=== PATIENT | female | born 1965 | race African-American/Black ===

== ENCOUNTER 2016-12-31 17:24 | Inpatient (IN) | payer BC ==
--- NOTE | 2016-12-31 18:01 | PDOC ---
Rapid Medical Evaluation Time Seen by Provider: 12/31/16 17:27 Medical Evaluation: Allergies Allergy/AdvReac Type Severity Reaction Status Date / Time No Known Drug Allergies Allergy Verified 08/22/15 12:26 12/31/16 17:57 PMD: Brille/Ring Spinner 51yo F Pmhx of Sarcoid and copd c/o coughing with sob. Pt states after a course of steroids, the coughing would subside but this time it got worse. Currently on Prednisone 20mg. Was on a higher dose with the cough. Pt states she is here for admission.
[2016-12-31 18:04] VITALS: BMI 33.0
[2016-12-31 18:49] LABS: BASOPHIL 0.2 % (0-2.0); EOSINOPHIL 0.1 % (0-4.5); MCHC 32.9 g/dl (32.0-36.0); MEAN CELL VOLUME 88.1 fl (80-96); MEAN PLT VOLUME 8.5 fl (7.5-11.1); NEUTROPHILS 89.5 % (42.8-82.8); PLATELET COUNT 197 K/MM3 (134-434)
--- NOTE | 2016-12-31 19:53 | PDOC ---
History of Present Illness - General History Source: Patient Exam Limitations: No Limitations - History of Present Illness Initial Comments: 12/31/16 20:35 The patient is a 51 year old female with significant past medical history of hypertension, hyperlipidemia, sarcoidosis, COPD, and anemia who presents to the ED with 2 week of worsening cough with mild SOB. Patient reports last summer she was diagnosed with pneumonia that was accompanied by a cough where she was treated and got better. After [place], her cough returned that was sometimes dry or with phlegm. She reports her cough was intermittent until 2 weeks ago, her cough became persistent with mild SOB. Patient visited Dr. Brown 3 days ago where she was given prednisone 20 mg for concern of pneumonia. She took treatment with no improvement and was advised by Dr. Brown to come in for admission. The patient denies fever, chills, diaphoresis, lightheadedness, chest pain, and palpitations. The patient denies abdominal pain, nausea, vomiting, and diarrhea. Allergies: NKDA Social History: No alcohol, tobacco, or drug use reported. Past Surgical History: cholecystectomy, lung biopsy, knee arthroscopy PCP: Dr. Delmis Wang Pilot Instructor: Dr. Carlton Brown <Jeanne Sy - Last Filed: 12/31/16 22:09> - General History Source: Patient <Berny Crandall - Last Filed: 01/01/17 19:23> - General Chief Complaint: Respiratory Stated Complaint: PCP SENT/PNEUMONIA Time Seen by Provider: 12/31/16 17:27 Past History <Jeanne Sy - Last Filed: 12/31/16 22:09> - Past Medical History Anemia: Yes (H/O IRON DEF) Asthma: No Cancer: No Cardiac Disorders: No CVA: No COPD: Yes (SARCOIDOSIS) CHF: No Dementia: No Diabetes: No GI Disorders: No Disorders: No HTN: Yes Hypercholesterolemia: Yes Kidney Stones: Yes Liver Disease: No Seizures: No Thyroid Disease: No - Surgical History Abdominal Surgery: Yes Appendectomy: No Cardiac Surgery: No Cholecystectomy: Yes Lung Surgery: Yes (BIOPSY) Neurologic Surgery: No Orthopedic Surgery: Yes (KNEE ARTHROSCOPY) - Immunization History Immunization Up to Date: Yes - Psycho/Social/Smoking Cessation Hx Anxiety: No Suicidal Ideation: No Smoking Status: No Smoking History: Never smoked Have you smoked in the past 12 months: No Number of Cigarettes Smoked Daily: 0 Information on smoking cessation initiated: No Hx Alcohol Use: No Drug/Substance Use Hx: No Substance Use Type: None Hx Substance Use Treatment: No <Berny Crandall - Last Filed: 01/01/17 19:23> - Past Medical History Allergies/Adverse Reactions: Allergies Allergy/AdvReac Type Severity Reaction Status Date / Time No Known Drug Allergies Allergy Verified 12/31/16 18:01 Home Medications: Ambulatory Orders Olmesartan Medoxomil [Benicar -] 20 mg PO HS 05/03/13 Atorvastatin Ca [Lipitor] 20 mg PO HS 01/08/15 Cholecalciferol (Vitamin D3) [Vitamin D] 1,000 unit PO HS 08/20/15 Oxycodone HCl/Acetaminophen [Percocet 5/325 -] 1 - 2 tab PO Q4H #30 tablet 08/22 Advair 500Mcg/50Mcg - 1 inhaler IH BID 01/01/17 Mirapex 0.25 mg PO DAILY 01/01/17 Mirapex 0.5 mg PO HS 01/01/17 Prednisone 20 mg PO DAILY 01/01/17 Topiramate 50 mg PO BID 01/01/17 Review of Systems - Review of Systems Able to Perform ROS?: Yes Comments:: 12/31/16 20:35 CONSTITUTIONAL: Absent: fever, chills, diaphoresis, generalized weakness, malaise, loss of appetite HEENT: Absent: rhinorrhea, nasal congestion, throat pain, throat swelling, difficulty swallowing, mouth swelling, ear pain, eye pain, visual Changes CARDIOVASCULAR: Absent: chest pain, syncope, palpitations, irregular heart rate, lightheadedness , peripheral edema RESPIRATORY: +cough, shortness of breath Absent: dyspnea with exertion, orthopnea, wheezing, stridor, hemoptysis GASTROINTESTINAL: Absent: abdominal pain, abdominal distension, nausea, vomiting, diarrhea, constipation, melena, hematochezia GENITOURINARY: Absent: dysuria, frequency, urgency, hesitancy, hematuria, flank pain, genital pain MUSCULOSKELETAL: Absent: myalgia, arthralgia, joint swelling SKIN: Absent: rash, itching, pallor NEUROLOGIC: Absent: headache, focal weakness or paresthesias, dizziness, unsteady gait, seizure, mental status changes, bladder or bowel incontinence PSYCHIATRIC: Absent: anxiety, depression, suicidal or homicidal ideation, hallucinations. <Jeanne Sy - Last Filed: 12/31/16 22:09> *Physical Exam - Vital Signs Last Vital Signs Temp Pulse Resp BP Pulse Ox 98.4 F 106 H 18 160/83 98 12/31/16 17:56 12/31/16 17:56 12/31/16 17:56 12/31/16 17:56 12/31/16 17:56 - Physical Exam Comments: 12/31/16 20:35 GENERAL: Well developed, well nourished. Awake and alert. No acute distress. HEENT: Normocephalic, atraumatic. PERRLA, EOMI. No conjunctival pallor. Sclera are non- icteric. Moist mucous membranes. Oropharynx is clear. NECK: Supple. Full ROM. No JVD. Carotid pulses 2+ and symmetric, without bruits. No thyromegaly. No lymphadenopathy. CARDIOVASCULAR: Regular rate and rhythm. No murmurs, rubs, or gallops. Distal pulses are 2+ and symmetric. PULMONARY: Mild respiratory distress. Poor air exchange. Decreased breath sounds bilaterally. ABDOMINAL: Soft. Non-tender. Non-distended. No rebound or guarding. No organomegaly. Normoactive bowel sounds. MUSCULOSKELETAL Normal range of motion at all joints. No bony deformities or tenderness. No CVA tenderness. EXTREMITIES: No cyanosis. No clubbing. No edema. No calf tenderness. SKIN: Warm and dry. Normal capillary refill. No rashes. No jaundice. NEUROLOGICAL: Alert, awake, appropriate. Cranial nerves 2-12 intact. Moving all extremities. No gross focal neurological deficits. PSYCHIATRIC: Cooperative. Good eye contact. Appropriate mood and affect. <Jeanne Sy - Last Filed: 12/31/16 22:09> - Vital Signs Last Vital Signs Temp Pulse Resp BP Pulse Ox 98.4 F 106 H 18 160/83 98 12/31/16 17:56 12/31/16 17:56 12/31/16 17:56 12/31/16 17:56 12/31/16 17:56 <Berny Crandall - Last Filed: 01/01/17 19:23> Heart Score/ECG Review - ECG Impressions Comment:: 12/31/16 22:09 Sinus tachycardia @104bpm Possible left atrial enlargement RBBB Abnormal ECG <Jeanne Sy - Last Filed: 12/31/16 22:09> ED Treatment Course - LABORATORY CBC & Chemistry Diagram: 12/31/16 18:40 12/31/16 18:40 - ADDITIONAL ORDERS Additional order review: 12/31/16 18:40 RBC 4.76 MCV 88.1 MCHC 32.9 RDW 13.0 MPV 8.5 Neutrophils % 89.5 H D Lymphocytes % 6.2 L D Monocytes % 4.0 Eosinophils % 0.1 D Basophils % 0.2 <Jeanne Sy - Last Filed: 12/31/16 22:09> - LABORATORY CBC & Chemistry Diagram: 12/31/16 18:40 12/31/16 23:35 - ADDITIONAL ORDERS Additional order review: 12/31/16 18:40 RBC 4.76 MCV 88.1 MCHC 32.9 RDW 13.0 MPV 8.5 Neutrophils % 89.5 H D Lymphocytes % 6.2 L D Monocytes % 4.0 Eosinophils % 0.1 D Basophils % 0.2 <Berny Crandall - Last Filed: 01/01/17 19:23> Medical Decision Making - Medical Decision Making 01/01/17 19:23 Dr. Crandall: The scribe's documentation has been prepared under my direction and personally reviewed by me in its entirery. I confirm that the note above accurately reflects all work, treatment, procedures, and medical decision making performed by me. <Berny Crandall - Last Filed: 01/01/17 19:23> *DC/Admit/Observation/Transfer - Attestations Scribe Attestion: 12/31/16 20:36 Documentation prepared by Jeanne Sy, acting as medical cost consultant for Berny Crandall MD <Jeanne Sy - Last Filed: 12/31/16 22:09> - Discharge Dispostion Admit: Yes <Berny Crandall - Last Filed: 01/01/17 19:23> Diagnosis at time of Disposition: Shortness of breath, Cough, Sarcoidosis - Discharge Dispostion Condition at time of disposition: Stable - Referrals
[2016-12-31] MEDS ORDERED: MAGNESIUM SULF 50% (8.12 MEQ/2 ML-1 GM VIAL) IVPB ONE (20:11)
[2016-12-31] MEDS ORDERED: ALBUTEROL SO4 2.5/IPRATROPIUM 0.5 INH SOL 3 ML VIAL.NEB. NEB STA (20:11)
[2016-12-31] MEDS ORDERED: methylPREDNISolone NA SUCC 125 MG/2 ML VIAL IVPB ONE (20:13)
[2016-12-31] MEDS ORDERED: MAGNESIUM SULF 50% (8.12 MEQ/2 ML-1 GM VIAL) ONE (20:44)
[2016-12-31] MEDS ORDERED: ALBUTEROL SO4 2.5/IPRATROPIUM 0.5 INH SOL 3 ML VIAL.NEB. NEB ONE (20:44)
[2016-12-31] MEDS ORDERED: methylPREDNISolone NA SUCC 125 MG/2 ML VIAL ONE (20:44)
[2017-01-01 00:46] LABS: ALBUMIN 3.8 g/dl (3.4-5.0); CALCIUM 9.1 mg/dL (8.5-10.1); CREATININE 1.7 mg/dL (0.55-1.02)
[2017-01-01 00:48] LABS: BILIRUBIN,TOTAL 0.3 mg/dL (0.2-1.0); TOT PROT 7.2 g/dl (6.4-8.2)
[2017-01-01] MEDS ORDERED: LEVOFLOXACIN 750 MG IVPB 150 ML IVPB ONE ×2 (00:57→01:30)
[2017-01-01] MEDS ORDERED: ALBUTEROL SO4 2.5/IPRATROPIUM 0.5 INH SOL 3 ML VIAL.NEB. NEB PRN (04:28)
--- NOTE | 2017-01-01 04:47 | PN ---
<Catherine Ramirez - Last Filed: 01/01/17 05:03> Teaching Attending Note ATTENDING PHYSICIAN STATEMENT I saw and evaluated the patient. I reviewed the resident's note and discussed the case with the resident. I agree with the resident's findings and plan as documented. SUBJECTIVE: The patient is a 51 year old female with significant past medical history of hypertension, hyperlipidemia, sarcoidosis, COPD, and anemia who presents with persistent cough. Cough worsened over summer. Patient was treated with antibiotics with some improvement. Symptoms resolved with steroids, however, upon tapering cough as reoccurred. She has been unable to wean steroids under 10mg for the last 5 months. Patient was told by her primary coffee supervisor to report to the hospital for further evaluation. Patient was diagnosed with sarcoidosis 20 years ago. Patient also notes SOB recently. Patient denies fevers , mucous, severe SOB, chest pain, palpitations, and abdominal pain. Surgical Hx: cholecystectomy, rotator cuff surgery, caesarian, plantar fasciitis , knee arthroscopy, ablation of uterine lining, Allergies: NKDA Family Hx: HTN, HLD, IDDM, [place] OBJECTIVE: Last Vital Signs Temp Pulse Resp BP Pulse Ox 98.4 F 83 18 159/72 98 01/01/17 02:56 01/01/17 02:56 01/01/17 02:56 01/01/17 02:56 01/01/17 02:56 GENERAL: Obese, Awake, alert, and fully oriented, in no acute distress HEENT: Atraumatic. PERRLA, EOMI. Moist mucosa. No JVD LUNGS: No distress, speaks full sentences, clear to auscultation bilaterally HEART: Regular rate and rhythm, normal S1 and S2, no murmurs, rubs or gallops, peripheral pulses normal and equal bilaterally. ABDOMEN: Soft, nontender, normoactive bowel sounds. No guarding, no rebound. No masses EXTREMITIES: Right heel bandaged, Normal range of motion, no edema. No clubbing or cyanosis. CBCD WBC 7.0 K/mm3 (4.0-10.0) D 12/31/16 18:40 RBC 4.76 M/mm3 (3.60-5.2) 12/31/16 18:40 Hgb 13.8 GM/dL (10.7-15.3) 12/31/16 18:40 Hct 42.0 % (32.4-45.2) 12/31/16 18:40 MCV 88.1 fl (80-96) 12/31/16 18:40 MCHC 32.9 g/dl (32.0-36.0) 12/31/16 18:40 RDW 13.0 % (11.6-15.6) 12/31/16 18:40 Plt Count 197 K/MM3 (134-434) 12/31/16 18:40 MPV 8.5 fl (7.5-11.1) 12/31/16 18:40 CMP Sodium 142 mmol/L (136-145) 12/31/16 23:35 Potassium 3.7 mmol/L (3.5-5.1) 12/31/16 23:35 Chloride 110 mmol/L (98-107) H 12/31/16 23:35 Carbon Dioxide 21 mmol/L (21-32) 12/31/16 23:35 Anion Gap 11 (8-16) 12/31/16 23:35 BUN 29 mg/dL (7-18) H D 12/31/16 23:35 Creatinine 1.7 mg/dL (0.55-1.02) H D 12/31/16 23:35 Creat Clearance w eGFR 31.56 (>60) 12/31/16 23:35 Calcium 9.1 mg/dL (8.5-10.1) 12/31/16 23:35 Total Bilirubin 0.3 mg/dL (0.2-1.0) 12/31/16 23:35 AST 11 U/L (15-37) L D 12/31/16 23:35 ALT 26 U/L (12-78) D 12/31/16 23:35 Alkaline Phosphatase 99 U/L (45-117) D 12/31/16 23:35 Total Protein 7.2 g/dl (6.4-8.2) 12/31/16 23:35 Albumin 3.8 g/dl (3.4-5.0) 12/31/16 23:[address] No definite interval change ASSESSMENT AND PLAN: The patient is a 51 year old female with significant past medical history of hypertension, hyperlipidemia, sarcoidosis, COPD, and anemia who presents PMHx of sarcoidosis presents with persistent cough failing when weaning with steroids found to have possible pneumonia on CT scan. She is in the midst of Levaquin course which we will continue. She will be seen by her primary coffee supervisor for further evaluation. Possible pneumonia -Continue prednisone -Continue levaquin -Continue home meds Sarcoidosis - further evaluation under coffee supervisor DVT ppx - heparin sc Documentation prepared by Catherine Ramirez, acting as medical transport specialist for Ulices Merritt M.D. <Ulices Merritt - Last Filed: 01/01/17 05:07> Teaching Attending Note Name of Resident: Nader Sorensen ATTENDING PHYSICIAN STATEMENT I saw and evaluated the patient. I reviewed the resident's note and discussed the case with the resident. I agree with the resident's findings and plan as documented.
--- NOTE | 2017-01-01 05:03 | HP ---
CHIEF COMPLAINT: chronic cough HISTORY OF PRESENT ILLNESS: The patient is a 51 year old female with significant past medical history of hypertension, hyperlipidemia, sarcoidosis, and anemia who presents with persistent cough from two years. IN summer on 2015 patient was treated with antibiotics after which cough resolved. In october patient again started having cough and two week ago patient noticed increase in cough and stated producing white color phlem. 3 days ago patient was started on l levaquin but cough didnt improve so she came to ED. Patient also states that when she cough she feels sob and it has also increased since before. Patient was diagnosed with sarcoidosis 20 years ago and is on steroid. Denies lightheadidness, diziness, chest pain, palpitations, nausea, vomiting ( some time have vomiting due to reaching during cough) denies burning micturation, pain abdomen. ER course was notable for: (1)cbc, cmp, (2) ct head Recent Travel: no PAST MEDICAL HISTORY: hypertension, hyperlipidemia, sarcoidosis, COPD, and anemia PAST SURGICAL HISTORY: cholecystectomy, rotator cuff surgery, caesarian, plantar fasciitis, knee arthroscopy, ablation of uterine lining, Social History: Smoking: no Alcohol: no Drugs: no Family History: HTN, HLD, IDDM, [place] Allergies No Known Drug Allergies Allergy (Verified 12/31/16 18:01) HOME MEDICATIONS: Home Medications Medication Instructions Recorded Olmesartan Medoxomil [Benicar -] 20 mg PO HS 05/03/13 Atorvastatin Ca [Lipitor] 20 mg PO HS 01/08/15 Cholecalciferol (Vitamin D3) 1,000 unit PO HS 08/20/15 [Vitamin D] Oxycodone HCl/Acetaminophen 1 - 2 tab PO Q4H #30 tablet 08/22/15 [Percocet 5/325 -] REVIEW OF SYSTEMS CONSTITUTIONAL: Absent: fever, chills, diaphoresis, generalized weakness, malaise, loss of appetite, weight change HEENT: present chronic cough Absent: rhinorrhea, nasal congestion, throat pain, throat swelling, difficulty swallowing, mouth swelling, ear pain, eye pain, visual changes CARDIOVASCULAR: Absent: chest pain, syncope, palpitations, irregular heart rate, lightheadedness , peripheral edema RESPIRATORY: Absent: chronic cough, shortness of breath, dyspnea with exertion, orthopnea, wheezing, stridor, hemoptysis GASTROINTESTINAL: Absent: abdominal pain, abdominal distension, nausea, vomiting, diarrhea, constipation, melena, hematochezia GENITOURINARY: Absent: dysuria, frequency, urgency, hesitancy, hematuria, flank pain, genital pain MUSCULOSKELETAL: Absent: myalgia, arthralgia, joint swelling, back pain, neck pain SKIN: Absent: rash, itching, pallor HEMATOLOGIC/IMMUNOLOGIC: Absent: easy bleeding, easy bruising, lymphadenopathy, frequent infections ENDOCRINE: Absent: unexplained weight gain, unexplained weight loss, heat intolerance, cold intolerance NEUROLOGIC: Absent: headache, focal weakness or paresthesias, dizziness, unsteady gait, seizure, mental status changes, bladder or bowel incontinence PSYCHIATRIC: Absent: anxiety, depression, suicidal or homicidal ideation, hallucinations. PHYSICAL EXAMINATION Vital Signs - 24 hr 01/01/17 02:56 Temperature 98.4 F Pulse Rate 83 Respiratory 18 Rate Blood Pressure 159/72 O2 Sat by Pulse 98 Oximetry (%) GENERAL: Awake, alert, and fully oriented, in no acute distress. HEAD: Normal with no signs of trauma. EYES: Pupils equal, round and reactive to light, extraocular movements intact, sclera anicteric, conjunctiva clear. No lid lag. EARS, NOSE, THROAT: Ears normal, nares patent, oropharynx clear without exudates. Moist mucous membranes. NECK: Normal range of motion, supple without lymphadenopathy, JVD, or masses. LUNGS: Breath sounds equal, clear to auscultation bilaterally. No wheezes, and no crackles. No accessory muscle use. HEART: s1s2 normal ABDOMEN: Soft, nontender, not distended, normoactive bowel sounds, no guarding, no rebound, no masses. No hepatomegaly or splenomegaly. MUSCULOSKELETAL: Normal range of motion at all joints. No bony deformities or tenderness. No CVA tenderness. UPPER EXTREMITIES: 2+ pulses, warm, well-perfused. No cyanosis. No clubbing. Cap refill <2 seconds. No peripheral edema. LOWER EXTREMITIES: 2+ pulses, warm, well-perfused. No calf tenderness. No peripheral edema. NEUROLOGICAL: Cranial nerves II-XII intact. Normal speech. Normal gait. PSYCHIATRIC: Cooperative. Good eye contact. Appropriate mood and affect. SKIN: Warm, dry, normal turgor, no rashes or lesions noted. Laboratory Results - last 24 hr 12/31/16 23:35 Sodium 142 Potassium 3.7 Chloride 110 H Carbon Dioxide 21 Anion Gap 11 BUN 29 H D Creatinine 1.7 H D Creat Clearance w eGFR 31.56 Random Glucose 306 H* D Calcium 9.1 Total Bilirubin 0.3 AST 11 L D ALT 26 D Alkaline Phosphatase 99 D Total Protein 7.2 Albumin 3.8 Current Medications Generic Name Dose Route Start Last Admin Trade Name Freq PRN Reason Stop Dose Admin Albuterol/Ipratropium 1 amp 01/01/17 04:28 Duoneb - NEB Q6H PRN SHORTNESS OF BREATH Atorvastatin Calcium 20 mg 01/01/17 22:00 Lipitor - PO HS HIRAM Cholecalciferol 1,000 unit 01/01/17 22:00 Vitamin D3 - PO HS HIRAM Heparin Sodium (Porcine) 5,000 unit 01/01/17 10:00 Heparin - SQ BID HIRAM Non-Formulary Medication 20 mg 01/01/17 22:00 Olmesartan Medoxomil PO HS HIRAM Prednisone 20 mg 01/01/17 10:00 Deltasone - PO DAILY HIRAM ASSESSMENT/PLAN: The patient is a 51 year old female with significant past medical history of hypertension, hyperlipidemia, sarcoidosis, COPD, and anemia who presents with chronic cough and on CT found to have opacity in anterior segment of left upper lobe. Possible pneumonia recived levaquin in ed continue with levaquin continue with prednisone neb with duoneb q6h prn continue with advir sarcoidosis finishing range feeder evaluation continue with prednisone HTN continue with home meds high blood sugar co HLD on atorvastatin 20mg daily fluid : orally allowed electrolyte : follow in am nutrition ; diabetic diet dvt pro : heparin s/q bid gi pro ; not required dispo ; admit in med surg Visit type - Emergency Visit Emergency Visit: Yes ED Registration Date: 12/31/16 Care time: The patient presented to the Emergency Department on the above date and was hospitalized for further evaluation of their emergent condition. - New Patient This patient is new to me today: Yes Date on this admission: 01/01/17 - Critical Care Critical Care patient: No
--- NOTE | 2017-01-01 05:14 | MSN ---
Admitting History and Physical - Admission Chief Complaint: cough History of Present Illness: 51 yo female with pmhx of htn, hld, and sarcoidosis presents with non productive cough for three days. She saw Dr. Brown 3 days ago and was started on levoquin for pneumonia. She says she does not feel any better so she came to the hospital. She has sarcoidosis diagnosed 20 years ago and has been experiencing a cough for the last two years that seems to come and go. She says that she thought it was just allergies at first and was tested but the results were negative. She has been on steriods for many years but every time she gets below 15mg for a taper the cough seems to return. She denies fever, chills, sweating, chest pain, palpitations, abdominal pain, headache, dizziness. History Source: Patient Limitations to Obtaining History: No Limitations - Past Medical History Cardiovascular: Yes: HTN, Hyperlipdemia Pulmonary: Yes: Other (sarcoidosis) ...LMP: 02/01/12 - Past Surgical History Past Surgical History: Yes: Arthrosocopy, Cholecystectomy, Additional Past Surgical History: rotator cuff, endometrial ablation, plantar fascia surgery - Smoking History Smoking history: Never smoked Have you smoked in the past 12 months: No Aproximately how many cigarettes per day: 0 - Alcohol/Substance Use Hx Alcohol Use: No Home Medications - Allergies Allergies/Adverse Reactions: Allergies Allergy/AdvReac Type Severity Reaction Status Date / Time No Known Drug Allergies Allergy Verified 12/31/16 18:01 - Home Medications Home Medications: Ambulatory Orders Olmesartan Medoxomil [Benicar -] 20 mg PO HS 05/03/13 Atorvastatin Ca [Lipitor] 20 mg PO HS 01/08/15 Cholecalciferol (Vitamin D3) [Vitamin D] 1,000 unit PO HS 08/20/15 Oxycodone HCl/Acetaminophen [Percocet 5/325 -] 1 - 2 tab PO Q4H #30 tablet 08/22 Review of Systems - Review of Systems Constitutional: reports: No Symptoms Cardiovascular: reports: No Symptoms Respiratory: reports: Cough, SOB Gastrointestinal: reports: No Symptoms Genitourinary: reports: No Symptoms Musculoskeletal: reports: No Symptoms Neurological: reports: No Symptoms Physical Examination Vital Signs: Vital Signs Temperature 98.4 F 01/01/17 02:56 Pulse Rate 83 01/01/17 02:56 Respiratory Rate 18 01/01/17 02:56 Blood Pressure 159/72 01/01/17 02:56 O2 Sat by Pulse Oximetry (%) 98 01/01/17 02:56 Constitutional: Yes: Well Nourished, No Distress, Calm Eyes: Yes: WNL, Conjunctiva Clear, EOM Intact Cardiovascular: Yes: WNL, Regular Rate and Rhythm, S1, S2 Respiratory: Yes: Regular, Cough Extremities: Yes: WNL Edema: No Neurological: Yes: WNL, Alert, Oriented Psychiatric: Yes: WNL, Alert, Oriented Labs: CBC, BMP 12/31/16 23:35 Imaging - Results Cat Scan: Report Reviewed (atelectasis not changed since prior ct) EKG: Other (sinus tachycarida, left atrial enlargement and rbbb) Assessment/Plan 1 yo female with pmhx of htn, hld, and sarcoidosis presents with non productive cough for three days. She saw Dr. Brown 3 daysd ago and was started on prednisone 20mg and levoquin for pneumonia. CAP -continue levoquin and prednisone -Duoneb prn -continue advair 2x daily Sarcoidosis -consult pulmonology -continue prednisone HTN -continue sartan HLD -continue statin DVT -scds
[2017-01-01] MEDS ORDERED: SODIUM CHLORIDE 1,000 ML IV STA (09:07)
[2017-01-01] MEDS ORDERED: FLUTICASONE/SALMETEROL 100 MCG/50 MCG DISKUS IH SCH (10:00)
[2017-01-01] MEDS ORDERED: PT OWN MED DRAWER 7, Y5N ONE (10:19)
[2017-01-01] MEDS: predniSONE 20 MG TABLET (UD) PO SCH (10:29)
[2017-01-01] MEDS: HEPARIN NA (PORCINE) 5,000 UNITS/ML 1ML VIAL SQ SCH ×2 (10:30→21:23)
--- NOTE | 2017-01-01 12:03 | PN ---
Physical Exam: SUBJECTIVE: Patient seen and examined. OBJECTIVE: Vital Signs Period Temp Pulse Resp BP Sys/Hicks Pulse Ox Last 24 Hr 98.4 F 83 18-18 159/72 98-98 GENERAL: The patient is awake, alert, and fully oriented, in no acute distress. HEAD: Normal with no signs of trauma. EYES: PERRL, extraocular movements intact, sclera anicteric, conjunctiva clear. No ptosis. LUNGS: Breath sounds equal, clear to auscultation bilaterally, no wheezes, no crackles, no accessory muscle use. Mild cough with deep inspiration. HEART: Regular rate and rhythm, S1, S2 without murmur, rub or gallop. ABDOMEN: Soft, nontender, nondistended, normoactive bowel sounds, no guarding, no rebound EXTREMITIES: 2+ pulses, warm, well-perfused, no edema. NEUROLOGICAL: Cranial nerves II through XII grossly intact. Normal speech, gait not observed. Laboratory Results - last 24 hr 12/31/16 23:35 Sodium 142 Potassium 3.7 Chloride 110 H Carbon Dioxide 21 Anion Gap 11 BUN 29 H D Creatinine 1.7 H D Creat Clearance w eGFR 31.56 Random Glucose 306 H* D Calcium 9.1 Total Bilirubin 0.3 AST 11 L D ALT 26 D Alkaline Phosphatase 99 D Total Protein 7.2 Albumin 3.8 Current Medications Generic Name Dose Route Start Last Admin Trade Name Freq PRN Reason Stop Dose Admin Albuterol/Ipratropium 1 amp 01/01/17 04:28 Duoneb - NEB Q6H PRN SHORTNESS OF BREATH Atorvastatin Calcium 20 mg 01/01/17 22:00 Lipitor - PO HS HIRAM Cholecalciferol 1,000 unit 01/01/17 22:00 Vitamin D3 - PO HS HIRAM Heparin Sodium (Porcine) 5,000 unit 01/01/17 10:00 01/01/17 10:30 Heparin - SQ 5,000 unit BID HIRAM Administration Sodium Chloride 1,000 mls @ 100 mls/hr 01/01/17 12:30 Normal Saline - IV ASDIR HIRAM Prednisone 20 mg 01/01/17 10:00 01/01/17 10:29 Deltasone - PO 20 mg DAILY HIRAM Administration Fluticasone/Salmeterol 1 puff 01/01/17 10:00 01/01/17 10:29 Advair 100mcg/50mcg - IH 1 inh BID HIRAM Administration Topiramate 50 mg 01/01/17 12:30 Topamax - PO BID HIRAM Valsartan 160 mg 01/01/17 22:00 Diovan - PO HS HIRAM ASSESSMENT/PLAN 51 year-old female with a significant PMH of HTN, HLD, COPD, sarcoidosis, kidney stones, and anemia who was 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 Found to have MONY on routine labs. Chronic cough --CT chest shows anterior NAZANIN infiltrate which was originally seen on and again on 08/28/16; waxing and waning infiltrate of unclear etiology --no fever, no leukocytosis; no antibiotics for now --on daily prednisone, Advair; duonebs PRN --pulmonary following MONY h/o renal calculi --Cr 1.7, baseline 1.0 --patient is asymptomatic --given history of kidney stones, will get US kidneys, ureters, bladder --UA, urine sodium, urine creatinine pending --IV fluids Sarcoidosis Hypertension --patient stopped taking Valsartan several weeks ago because her SBP was < 140 on home monitoring and PCP said OK to stop --BP elevated on this admission, continue Valsartan Hyperlipidemia --continue Lipitor F/E/N Fluids: NS x 1L then @100mL/hr Electrolytes: replete as indicated Nutrition: diabetic, low sodium DVT prophylaxis: subq heparin, oob, ambulation Dispo: pulmonary service wants patient to remain in the hospital pending scheduling of bronchoscopy. Full Code. Visit type - Emergency Visit Emergency Visit: Yes ED Registration Date: 12/31/16 Care time: The patient presented to the Emergency Department on the above date and was hospitalized for further evaluation of their emergent condition. - New Patient This patient is new to me today: Yes Date on this admission: 01/02/17 - Critical Care Critical Care patient: No
[2017-01-01] MEDS: TOPIRAMATE 25 MG TABLET (FP) PO SCH ×2 (13:05→21:22)
--- NOTE | 2017-01-01 13:05 | PN ---
Teaching Attending Note Name of Resident: Jacey Mcduffie ATTENDING PHYSICIAN STATEMENT I saw and evaluated the patient. I reviewed the resident's note and discussed the case with the resident. I agree with the resident's findings and plan as documented. PULMONARY CONSULT IMP RECURRENT NAZANIN INFILTRATE SARCOIDOSIS COUGH ACUTE KIDNEY INJURY GERD PLAN PREDNISONE INHALED BRONCHODILATORS IVF FLEXIBLE BRONCHOSCOPY PROTONIX ANTIBIOTICS RENAL EVALUATION MONITOR TEJAL ARCHULETA Problem List - Problems (1) Cough Code(s): R05 - COUGH (2) Sarcoidosis Code(s): D86.9 - SARCOIDOSIS, UNSPECIFIED (3) Shortness of breath Code(s): R06.02 - SHORTNESS OF BREATH (4) Acute kidney injury Code(s): N17.9 - ACUTE KIDNEY FAILURE, UNSPECIFIED (5) GERD (gastroesophageal reflux disease) Code(s): K21.9 - GASTRO-ESOPHAGEAL REFLUX DISEASE WITHOUT ESOPHAGITIS (6) Pneumonia Code(s): J18.9 - PNEUMONIA, UNSPECIFIED ORGANISM
[2017-01-01 13:27] LABS: URINE APPEARANCE CLEAR; URINE BILIRUBIN NEGATIVE (NEGATIVE); URINE BLOOD NEGATIVE (NEGATIVE); URINE COLOR LTYELLOW; URINE GLUCOSE (UA) NEGATIVE (NEGATIVE); URINE KETONE NEGATIVE (NEGATIVE); URINE LEUK ESTERASE NEGATIVE (NEGATIVE); URINE NITRITE NEGATIVE (NEGATIVE); URINE PROTEIN NEGATIVE (NEGATIVE); URINE UROBILINOGEN NEGATIVE E.U./dl (0.2-1.0)
[2017-01-01] MEDS ORDERED: MIRAPEX 0.25 MG PO SCH (14:00)
[2017-01-01] MEDS: SODIUM CHLORIDE 1,000 ML IV SCH (14:07)
[2017-01-01] MEDS: PANTOPRAZOLE 40 MG TABLET (FP) PO SCH (14:07)
--- NOTE | 2017-01-01 14:10 | EKG ---
Test Reason : Blood Pressure : / mmHG Vent. Rate : 104 BPM Atrial Rate : 104 BPM P-R Int : 132 ms QRS Dur : 126 ms QT Int : 394 ms P-R-T Axes : 060 042 020 degrees QTc Int : 518 ms SINUS TACHYCARDIA POSSIBLE LEFT ATRIAL ENLARGEMENT RIGHT BUNDLE BRANCH BLOCK ABNORMAL ECG WHEN COMPARED WITH ECG OF 27-DEC-2014 17:36, NO SIGNIFICANT CHANGE WAS FOUND Confirmed by ALVA HART MD ([id number]) on 01/01/2017 2:09:44 PM Referred By: Confirmed By:ALVA HART MD
[2017-01-01] MEDS: BUDESONIDE/FORMETEROL FUMARATE 160/4.5 mcg INHALER IH SCH ×2 (15:38→21:26)
[2017-01-01] MEDS: PRAMIPEXOLE DIHYDROCHLORIDE 0.25 MG TABLET PO SCH (15:39)
--- NOTE | 2017-01-01 17:47 | CONSULT ---
Consultation: REQUESTING PROVIDER: CONSULT REQUEST: We have been asked to medically evaluate this patient for cough. HISTORY OF PRESENT ILLNESS: This is a 51 yo F with PMH of sarcoidosis (diagnosed by biopsy and L lung wedge resection), HTN, HLD and anemia who presents with persistent cough x 2 years. Patient first developed cough in summer, which was success fully treated with PO abx outpatient (Dr Brown). Patient was also on prednisone 20 at the time. Winter 2015, patient was doing well and was weaned down to prednisone 10 when cought returned and progressed to white sputum production. She was placed back on prednisone 20 with no symptomatic improvement. within the past week cough worsened and patient was placed on PO levaquin 3 days ago, which didnt help so she was advised to come to hospital. She also noticed increased exertional dyspnea over the past 2 mo. She she denies resting sob, lightheadedness, diziness, chest pain, palpitations, nausea, vomiting ( some time have vomiting due to reaching during cough) denies burning urination, abdominal pain. REVIEW OF SYSTEMS: CONSTITUTIONAL: Absent: fever, chills, diaphoresis, generalized weakness HEENT: Absent: rhinorrhea, nasal congestion, throat pain CARDIOVASCULAR: Absent: chest pain, syncope, palpitations RESPIRATORY: Absent: cough, dyspnea with exertion GASTROINTESTINAL: Absent: abdominal pain, abdominal distension, nausea, vomiting, diarrhea GENITOURINARY: Absent: dysuria MUSCULOSKELETAL: Absent: myalgia, arthralgia SKIN: Absent: rash, itching, pallor HEMATOLOGIC/IMMUNOLOGIC: Absent: frequent infections ENDOCRINE: Absent: heat intolerance, cold intolerance NEUROLOGIC: Absent: headache, focal weakness or paresthesias PSYCHIATRIC: Absent: anxiety, depression PHYSICAL EXAMINATION Vital Signs - 24 hr 01/01/17 01/01/17 01/01/17 02:56 06:01 08:26 Temperature 98.4 F 98.6 F Pulse Rate 83 92 H Respiratory 18 18 20 Rate Blood Pressure 159/72 138/87 O2 Sat by Pulse 98 98 Oximetry (%) 01/01/17 01/01/17 01/01/17 09:00 15:39 17:16 Temperature 98.7 F 98.5 F Pulse Rate 90 99 H Respiratory 18 20 Rate Blood Pressure 146/81 151/85 O2 Sat by Pulse 98 Oximetry (%) GENERAL: Awake, alert, and fully oriented, in no acute distress. HEAD: Normal with no signs of trauma. EYES: Pupils equal, round and reactive to light, extraocular movements intact, sclera anicteric, conjunctiva clear. EARS, NOSE, THROAT: Moist mucous membranes. NECK: supple without masses. LUNGS: upper lobe crackles HEART: Regular rate and rhythm, normal S1 and S2 ABDOMEN: Soft, nontender, not distended, normoactive bowel sounds MUSCULOSKELETAL: No CVA tenderness. UPPER EXTREMITIES: 2+ pulses, No peripheral edema. LOWER EXTREMITIES: 2+ pulses, warm, No peripheral edema. NEUROLOGICAL: Cranial nerves II-XII grossly intact. PSYCHIATRIC: Cooperative. Good eye contact. Appropriate mood and affect. SKIN: Warm, dry Laboratory Results - last 24 hr 12/31/16 01/01/17 01/01/17 23:35 13:00 13:00 Sodium 142 Potassium 3.7 Chloride 110 H Carbon Dioxide 21 Anion Gap 11 BUN 29 H D Creatinine 1.7 H D Creat Clearance w eGFR 31.56 POC Glucometer Random Glucose 306 H* D Calcium 9.1 Total Bilirubin 0.3 AST 11 L D ALT 26 D Alkaline Phosphatase 99 D Total Protein 7.2 Albumin 3.8 Urine Color Ltyellow Urine Appearance Clear Urine pH 5.0 Ur Specific [place] 1.024 Urine Protein Negative Urine Glucose (UA) Negative Urine Ketones Negative Urine Blood Negative Urine Nitrite Negative Urine Bilirubin Negative Urine Urobilinogen Negative Ur Leukocyte Esterase Negative Urine Creatinine 136.0 01/01/17 13:04 Sodium Potassium Chloride Carbon Dioxide Anion Gap BUN Creatinine Creat Clearance w eGFR POC Glucometer 116 Random Glucose Calcium Total Bilirubin AST ALT Alkaline Phosphatase Total Protein Albumin Urine Color Urine Appearance Urine pH Ur Specific [place] Urine Protein Urine Glucose (UA) Urine Ketones Urine Blood Urine Nitrite Urine Bilirubin Urine Urobilinogen Ur Leukocyte Esterase Urine Creatinine Active Medications Generic Name Dose Route Start Last Admin Trade Name Freq PRN Reason Stop Dose Admin Albuterol/Ipratropium 1 amp 01/01/17 04:28 Duoneb - NEB Q6H PRN SHORTNESS OF BREATH Atorvastatin Calcium 20 mg 01/01/17 22:00 Lipitor - PO HS HIRAM Budesonide/Formoterol Fumarate 2 puff 01/01/17 14:15 01/01/17 15:38 Symbicort 160/4.5mcg - IH 2 inh BID HIRAM Administration Cholecalciferol 1,000 unit 01/01/17 22:00 Vitamin D3 - PO HS HIRAM Heparin Sodium (Porcine) 5,000 unit 01/01/17 10:00 01/01/17 10:30 Heparin - SQ 5,000 unit BID HIRAM Administration Sodium Chloride 1,000 mls @ 100 mls/hr 01/01/17 12:30 01/01/17 14:07 Normal Saline - IV 100 mls/hr ASDIR HIRAM Administration Levofloxacin 50 mls @ 50 mls/hr 01/02/17 10:00 Levaquin 250 Mg Premixed Ivpb - IVPB DAILY HIRAM Pantoprazole Sodium 40 mg 01/01/17 13:30 01/01/17 14:07 Protonix - PO 40 mg DAILY HIRAM Administration Pramipexole Dihydrochloride 0.5 mg 01/01/17 22:00 Mirapex - PO HS HIRAM Pramipexole Dihydrochloride 0.25 mg 01/01/17 14:00 01/01/17 15:39 Mirapex - PO 0.25 mg DAILY HIRAM Administration Prednisone 20 mg 01/01/17 10:00 01/01/17 10:29 Deltasone - PO 20 mg DAILY HIRAM Administration Topiramate 50 mg 01/01/17 12:30 01/01/17 13:05 Topamax - PO 50 mg BID HIRAM Administration Valsartan 160 mg 01/01/17 22:00 Diovan - PO HS HIRAM ASSESSMENT/PLAN: Community acquired PNA -CT chest recurrent NAZANIN infiltrate -superimposed on pulmonary sarcoidosis -advair, duoneb -prednisone 20 d -respiratory virus, influenza -legionella antigen -consider bronchoscopy MONY -renal consult -Iv hydration Dispo: We will continue to follow the patient. Thank you for this consultative opportunity. Problem List - Problems (1) Acute kidney injury Code(s): N17.9 - ACUTE KIDNEY FAILURE, UNSPECIFIED (2) Cough Code(s): R05 - COUGH (3) GERD (gastroesophageal reflux disease) Code(s): K21.9 - GASTRO-ESOPHAGEAL REFLUX DISEASE WITHOUT ESOPHAGITIS (4) Pneumonia Code(s): J18.9 - PNEUMONIA, UNSPECIFIED ORGANISM (5) Sarcoidosis Code(s): D86.9 - SARCOIDOSIS, UNSPECIFIED (6) Shortness of breath Code(s): R06.02 - SHORTNESS OF BREATH Visit type - Emergency Visit Emergency Visit: Yes ED Registration Date: 12/31/16 Care time: The patient presented to the Emergency Department on the above date and was hospitalized for further evaluation of their emergent condition. - New Patient This patient is new to me today: Yes Date on this admission: 01/01/17 - Critical Care Critical Care patient: No
--- NOTE | 2017-01-01 17:56 | CONSULT ---
Consult Consult Specialty:: Nephrology Referred by:: Dr Brown Reason for Consultation:: elevated creatinine and sarcoid - History of Present Illness Chief Complaint: cough History of Present Illness: Pt is a 51 year old female with pmhx of sarcoid, HTN, hyperlipidemia and anemia who presents to the ER complaining of a cough that has not improved. She says that the cough has been chronic in nature. She has taken antibiotics for it. She has history of sarcoid and it was diagnosed by lung biopsy. She was found to have elevated creatinine and I was called to evaluate her. She denies history of kidney disease. She denies hematuria or dysuria. She denies nsaid use. She was on an ARB however it was stopped a few weeks ago as her blood pressure improved. - History Source History Provided By: Patient - Past Medical History Cardio/Vascular: Yes: HTN, Hyperlipdemia Pulmonary: Yes: Other (sarcoidosis) ...LMP: 02/01/12 - Past Surgical History Past Surgical History: Yes: Arthrosocopy, Cholecystectomy, - Alcohol/Substance Use Hx Alcohol Use: No - Smoking History Smoking history: Never smoked Have you smoked in the past 12 months: No Aproximately how many cigarettes per day: 0 Home Medications - Allergies Allergies/Adverse Reactions: Allergies Allergy/AdvReac Type Severity Reaction Status Date / Time No Known Drug Allergies Allergy Verified 12/31/16 18:01 - Home Medications Home Medications: Ambulatory Orders Olmesartan Medoxomil [Benicar -] 20 mg PO HS 05/03/13 Atorvastatin Ca [Lipitor] 20 mg PO HS 01/08/15 Cholecalciferol (Vitamin D3) [Vitamin D] 1,000 unit PO HS 08/20/15 Oxycodone HCl/Acetaminophen [Percocet 5/325 -] 1 - 2 tab PO Q4H #30 tablet 08/22 Advair 500Mcg/50Mcg - 1 inhaler IH BID 01/01/17 Mirapex 0.25 mg PO DAILY 01/01/17 Mirapex 0.5 mg PO HS 01/01/17 Prednisone 20 mg PO DAILY 01/01/17 Topiramate 50 mg PO BID 01/01/17 Family Disease History - Family Disease History Other Family History: DM Review of Systems - Review of Systems Constitutional: denies: Chills, Fever Eyes: reports: No Symptoms HENT: reports: No Symptoms Neck: reports: No Symptoms Cardiovascular: reports: No Symptoms Respiratory: reports: Cough, SOB on Exertion Gastrointestinal: reports: No Symptoms Genitourinary: reports: No Symptoms Musculoskeletal: reports: No Symptoms Integumentary: reports: No Symptoms Neurological: reports: No Symptoms Endocrine: reports: No Symptoms Hematology/Lymphatic: reports: No Symptoms Psychiatric: reports: No Symptoms Physical Exam Vital Signs: Vital Signs Temperature 98.5 F 01/01/17 17:16 Pulse Rate 99 H 01/01/17 17:16 Respiratory Rate 20 01/01/17 17:16 Blood Pressure 151/85 01/01/17 17:16 O2 Sat by Pulse Oximetry (%) 98 01/01/17 09:00 Constitutional: Yes: Calm Eyes: Yes: Conjunctiva Clear HENT: Yes: Atraumatic Neck: Yes: Supple Cardiovascular: Yes: S1, S2 Respiratory: Yes: Wheezes Gastrointestinal: Yes: Soft, Abdomen, Obese Renal/: Yes: WNL Musculoskeletal: Yes: WNL Extremities: Yes: WNL Edema: No Integumentary: Yes: WNL Neurological: Yes: Oriented Psychiatric: Yes: Oriented Labs: CBC, BMP 12/31/16 23:35 Laboratory Tests 12/31/16 12/31/16 01/01/17 18:40 23:35 13:00 WBC 7.0 D Hgb 13.8 Plt Count 197 Sodium 142 Potassium 3.7 Chloride 110 H Anion Gap 11 BUN 29 H D Creatinine 1.7 H D Random Glucose 306 H* D Calcium 9.1 AST 11 L D ALT 26 D Alkaline Phosphatase 99 D Total Protein 7.2 Urine Color Ltyellow Urine Appearance Clear Urine pH 5.0 Ur Specific [place] 1.024 Urine Protein Negative Urine Glucose (UA) Negative Urine Ketones Negative Urine Blood Negative Urine Nitrite Negative Urine Bilirubin Negative Urine Urobilinogen Negative Ur Leukocyte Esterase Negative Urine Creatinine 01/01/17 13:00 WBC Hgb Plt Count Sodium Potassium Chloride Anion Gap BUN Creatinine Random Glucose Calcium AST ALT Alkaline Phosphatase Total Protein Urine Color Urine Appearance Urine pH Ur Specific [place] Urine Protein Urine Glucose (UA) Urine Ketones Urine Blood Urine Nitrite Urine Bilirubin Urine Urobilinogen Ur Leukocyte Esterase Urine Creatinine 136.0 Imaging - Results Chest X-ray: Report Reviewed Ultrasound: Report Reviewed (small right renal cyst, kidneys appear unremarkable ) Problem List - Problems (1) Acute kidney injury Code(s): N17.9 - ACUTE KIDNEY FAILURE, UNSPECIFIED (2) Cough Code(s): R05 - COUGH (3) GERD (gastroesophageal reflux disease) Code(s): K21.9 - GASTRO-ESOPHAGEAL REFLUX DISEASE WITHOUT ESOPHAGITIS (4) Sarcoidosis Code(s): D86.9 - SARCOIDOSIS, UNSPECIFIED (5) Shortness of breath Code(s): R06.02 - SHORTNESS OF BREATH Assessment/Plan Current Medications Generic Name Dose Route Start Last Admin Trade Name Freq PRN Reason Stop Dose Admin Albuterol/Ipratropium 1 amp 01/01/17 04:28 Duoneb - NEB Q6H PRN SHORTNESS OF BREATH Atorvastatin Calcium 20 mg 01/01/17 22:00 Lipitor - PO HS HIRAM Budesonide/Formoterol Fumarate 2 puff 01/01/17 14:15 01/01/17 15:38 Symbicort 160/4.5mcg - IH 2 inh BID HIRAM Administration Cholecalciferol 1,000 unit 01/01/17 22:00 Vitamin D3 - PO HS HIRAM Heparin Sodium (Porcine) 5,000 unit 01/01/17 10:00 01/01/17 10:30 Heparin - SQ 5,000 unit BID HIRAM Administration Sodium Chloride 1,000 mls @ 100 mls/hr 01/01/17 12:30 01/01/17 14:07 Normal Saline - IV 100 mls/hr ASDIR HIRAM Administration Levofloxacin 50 mls @ 50 mls/hr 01/02/17 10:00 Levaquin 250 Mg Premixed Ivpb - IVPB DAILY HIRAM Pantoprazole Sodium 40 mg 01/01/17 13:30 01/01/17 14:07 Protonix - PO 40 mg DAILY HIRAM Administration Pramipexole Dihydrochloride 0.5 mg 01/01/17 22:00 Mirapex - PO HS HIRAM Pramipexole Dihydrochloride 0.25 mg 01/01/17 14:00 01/01/17 15:39 Mirapex - PO 0.25 mg DAILY HIRAM Administration Prednisone 20 mg 01/01/17 10:00 01/01/17 10:29 Deltasone - PO 20 mg DAILY HIRAM Administration Topiramate 50 mg 01/01/17 12:30 01/01/17 13:05 Topamax - PO 50 mg BID HIRAM Administration Valsartan 160 mg 01/01/17 22:00 Diovan - PO HS HIRAM Impression 1. MONY 2. sarcoidosis 3. HTN 4. hyperlipidemia 5. cough 6. hx of anemia 7. nephrolithiasis - has passed multiple stones in the past Plan - renal ultrasound reviewed and reveals a cyst, otherwise normal - UA reviewed and is negative for blood or protein - repeat labs in am to evaluate renal function - will make more recommendations after reviewing labs - check urine sodium to calc FENa - cont current meds - will follow
--- NOTE | 2017-01-01 19:20 | CONS ---
DATE OF CONSULTATION: 01/01/2017 REFERRING PHYSICIAN: Valerie Salgado N.P. HISTORY OF PRESENT ILLNESS: The patient is a 51-year-old black female known to me from previous hospitalization, office followup with past medical history of sarcoidosis diagnosed in 1978, hypertension, hyperlipidemia, anemia, admitted to [facility] with progressive cough. Patient states has longstanding history of sarcoid. I lost followup to her until approximately 6 months ago when she was referred to my office for a visit secondary to cough. At the time, she had chest CT performed, which revealed a right upper lobe infiltrate. She was placed on antibiotic therapy as well as steroids with good clinical response. Followup chest CT in August revealed evidence of significant clearing of the left upper lobe infiltrate. Patient was doing well relatively until approximately 2-1/3, 3 weeks ago when she started developing a progressive cough productive of clear sputum, also shortness of breath with exertion. Denied any chest pain, nausea, vomiting, diaphoresis. Denied any fever or chills. At the time she was placed on an increased dose of prednisone and placed on antibiotics. Initially she had some improvement over the last few days, then started noticing progressive cough at which time she was advised to go to the hospital. She went to the ER, had a chest CT performed which reveals again increasing left upper lobe consolidation. She denies any hemoptysis, denies any weight loss, no history of occupational exposure to chemicals or fumes. She is a nonsmoker. She denies any skin rashes, denies any visual disturbances. PAST MEDICAL HISTORY: Again includes sarcoidosis diagnosed in 1996 by lung biopsy, hyperlipidemia, anemia as well as GERD. REVIEW OF SYSTEMS: Positive cough. Positive GERD. No chest pain. No nausea. No vomiting. No fevers. No chills. No hemoptysis. Denies any shortness of breath with exertion. CURRENT MEDICATIONS: Include Symbicort, prednisone, Diovan, Levaquin, heparin, Topamax, DuoNeb, Mirapex, Lipitor, Protonix, vitamin D3. PHYSICAL EXAMINATION: General: The patient is a well-developed, well-nourished female, awake, alert, in no acute distress. Vital signs: She is currently afebrile. Blood pressure 151/85, respiratory rate 20, O2 saturation is 93% on room air. HEENT: Head is normocephalic, atraumatic. Neck: Supple. Heart: Regular. S1, S2. Chest: Clear. Abdomen: Soft. Bowel sounds positive. Extremities: Lower extremity edema. LABORATORY: WBC 7, hemoglobin 13.8, hematocrit 42.0, platelet count 197,000. BUN 29, creatinine 1.7, glucose randomly is 306. UA is negative. Chest CT reveals increasing left upper lobe consolidation, with some atelectatic changes. IMPRESSION: 1. Recurrent left upper lobe infiltrate waxing and waning. 2. Sarcoidosis. 3. Cough secondary to sarcoidosis as well as left upper lobe infiltrates. 4. Acute kidney injury. 5. Gastroesophageal reflux disease. PLAN: Continue prednisone, inhaled bronchodilators, IV fluids. Monitor renal function, will scheduled flexible bronchoscopy to evaluate left upper lobe process, obtain cultures, antibiotic therapy, renal evaluation, monitor electrolytes. PRASANTH ARCHULETA M.D. PATRICIA/[id number] MTDD
[2017-01-01] MEDS: VALSARTAN 160 MG TABLET (UD) PO SCH (21:22)
[2017-01-01] MEDS: ATORVASTATIN CA 20 MG TABLET (FP) PO SCH (21:22)
[2017-01-01] MEDS: CHOLECALCIFEROL (VITAMIN D3) 1,000 UNIT TABLET (FP) PO SCH (21:22)
[2017-01-01] MEDS: PRAMIPEXOLE DIHYDROCHLORIDE 0.5 MG TABLET PO SCH (21:23)
[2017-01-01] MEDS ORDERED: PRAMIPEXOLE DIHYDROCHLORIDE 0.5 MG TABLET PO SCH (22:00)
[2017-01-02] MEDS: SODIUM CHLORIDE 1,000 ML IV SCH (00:13)
[2017-01-02] MEDS ORDERED: PT OWN MED DRAWER 7, Y5N ONE ×2 (10:15→21:49)
[2017-01-02] MEDS: TOPIRAMATE 25 MG TABLET (FP) PO SCH ×2 (10:16→21:47)
[2017-01-02] MEDS: LEVOFLOXACIN 250 MG IVPB 50 ML IVPB SCH ×2 (10:16→10:20)
[2017-01-02] MEDS: PANTOPRAZOLE 40 MG TABLET (FP) PO SCH (10:16)
[2017-01-02] MEDS: predniSONE 20 MG TABLET (UD) PO SCH (10:16)
[2017-01-02] MEDS: HEPARIN NA (PORCINE) 5,000 UNITS/ML 1ML VIAL SQ SCH ×2 (10:17→21:49)
[2017-01-02] MEDS: BUDESONIDE/FORMETEROL FUMARATE 160/4.5 mcg INHALER IH SCH ×2 (10:17→21:50)
[2017-01-02] MEDS: PRAMIPEXOLE DIHYDROCHLORIDE 0.25 MG TABLET PO SCH (10:17)
[2017-01-02 11:25] LABS: BASOPHIL 0.6 % (0-2.0); EOSINOPHIL 0.5 % (0-4.5); MCH 28.9 pg (25.7-33.7); MCHC 32.5 g/dl (32.0-36.0); MEAN CELL VOLUME 89.1 fl (80-96); MEAN PLT VOLUME 8.8 fl (7.5-11.1); NEUTROPHILS 75.3 % (42.8-82.8); PLATELET COUNT 165 K/MM3 (134-434); RDW 13.4 % (11.6-15.6); WHITE BLOOD COUNT 8.7 K/mm3 (4.0-10.0)
[2017-01-02 11:38] LABS: ALBUMIN 3.2 g/dl (3.4-5.0); CALCIUM 8.4 mg/dL (8.5-10.1); CREATININE 1.3 mg/dL (0.55-1.02); MAGNESIUM 2.3 mg/dL (1.8-2.4); PHOSPHOROUS 3.1 mg/dL (2.5-4.9)
[2017-01-02 11:40] LABS: BILIRUBIN,TOTAL 0.2 mg/dL (0.2-1.0); TOT PROT 5.9 g/dl (6.4-8.2)
--- NOTE | 2017-01-02 12:59 | PN ---
Progress Note, Physician History of Present Illness: Pt seen and examined at bedside. She still complains of cough. She denies shortness of breath. - Current Medication List Current Medications: Active Medications Albuterol/Ipratropium (Duoneb -) 1 amp NEB Q6H PRN PRN Reason: SHORTNESS OF BREATH Atorvastatin Calcium (Lipitor -) 20 mg PO HS [facility] Last Admin: 01/01/17 21:22 Dose: 20 mg Budesonide/Formoterol Fumarate (Symbicort 160/4.5mcg -) 2 puff IH BID [facility] Last Admin: 01/02/17 10:17 Dose: 2 inh Cholecalciferol (Vitamin D3 -) 1,000 unit PO HS [facility] Last Admin: 01/01/17 21:22 Dose: 1,000 unit Heparin Sodium (Porcine) (Heparin -) 5,000 unit SQ BID [facility] Last Admin: 01/02/17 10:17 Dose: 5,000 unit Sodium Chloride (Normal Saline -) 1,000 mls @ 100 mls/hr IV ASDIR [facility] Last Admin: 01/02/17 00:13 Dose: 100 mls/hr Levofloxacin (Levaquin 250 Mg Premixed Ivpb -) 50 mls @ 50 mls/hr IVPB DAILY [facility] Last Admin: 01/02/17 10:20 Dose: 50 mls/hr Pantoprazole Sodium (Protonix -) 40 mg PO DAILY [facility] Last Admin: 01/02/17 10:16 Dose: 40 mg Pramipexole Dihydrochloride (Mirapex -) 0.5 mg PO HS [facility] Last Admin: 01/01/17 21:23 Dose: 0.5 mg Pramipexole Dihydrochloride (Mirapex -) 0.25 mg PO DAILY [facility] Last Admin: 01/02/17 10:17 Dose: 0.25 mg Prednisone (Deltasone -) 20 mg PO DAILY [facility] Last Admin: 01/02/17 10:16 Dose: 20 mg Topiramate (Topamax -) 50 mg PO BID [facility] Last Admin: 01/02/17 10:16 Dose: 50 mg Valsartan (Diovan -) 160 mg PO HS [facility] Last Admin: 01/01/17 21:22 Dose: 160 mg - Objective Vital Signs: Vital Signs Temperature 98.3 F 01/02/17 05:22 Pulse Rate 84 01/02/17 05:22 Respiratory Rate 18 01/02/17 05:22 Blood Pressure 132/83 01/02/17 05:22 O2 Sat by Pulse Oximetry (%) 96 01/01/17 21:00 Constitutional: Yes: Calm Eyes: Yes: Conjunctiva Clear HENT: Yes: Atraumatic Neck: Yes: Supple Cardiovascular: Yes: S1, S2 Respiratory: Yes: CTA Bilaterally Gastrointestinal: Yes: Normal Bowel Sounds, Soft Genitourinary: Yes: WNL Musculoskeletal: Yes: WNL Edema: No Neurological: Yes: Oriented Psychiatric: Yes: Oriented Labs: CBC, BMP 01/02/17 08:20 01/02/17 08:20 Problem List - Problems (1) Acute kidney injury Code(s): N17.9 - ACUTE KIDNEY FAILURE, UNSPECIFIED (2) Cough Code(s): R05 - COUGH (3) GERD (gastroesophageal reflux disease) Code(s): K21.9 - GASTRO-ESOPHAGEAL REFLUX DISEASE WITHOUT ESOPHAGITIS (4) Sarcoidosis Code(s): D86.9 - SARCOIDOSIS, UNSPECIFIED (5) Shortness of breath Code(s): R06.02 - SHORTNESS OF BREATH Assessment/Plan Current Medications Generic Name Dose Route Start Last Admin Trade Name Freq PRN Reason Stop Dose Admin Albuterol/Ipratropium 1 amp 01/01/17 04:28 Duoneb - NEB Q6H PRN SHORTNESS OF BREATH Atorvastatin Calcium 20 mg 01/01/17 22:00 01/01/17 21:22 Lipitor - PO 20 mg HS [facility]AM Administration Budesonide/Formoterol Fumarate 2 puff 01/01/17 14:15 01/02/17 10:17 Symbicort 160/4.5mcg - IH 2 inh BID [facility]AM Administration Cholecalciferol 1,000 unit 01/01/17 22:00 01/01/17 21:22 Vitamin D3 - PO 1,000 unit HS [facility]AM Administration Heparin Sodium (Porcine) 5,000 unit 01/01/17 10:00 01/02/17 10:17 Heparin - SQ 5,000 unit BID [facility] Administration Sodium Chloride 1,000 mls @ 100 mls/hr 01/01/17 12:30 01/02/17 00:13 Normal Saline - IV 100 mls/hr ASDIR [facility] Administration Levofloxacin 50 mls @ 50 mls/hr 01/02/17 10:00 01/02/17 10:20 Levaquin 250 Mg Premixed Ivpb - IVPB 50 mls/hr DAILY [facility] Administration Pantoprazole Sodium 40 mg 01/01/17 13:30 01/02/17 10:16 Protonix - PO 40 mg DAILY [facility] Administration Pramipexole Dihydrochloride 0.5 mg 01/01/17 22:00 01/01/17 21:23 Mirapex - PO 0.5 mg HS [facility]AM Administration Pramipexole Dihydrochloride 0.25 mg 01/01/17 14:00 01/02/17 10:17 Mirapex - PO 0.25 mg DAILY [facility] Administration Prednisone 20 mg 01/01/17 10:00 01/02/17 10:16 Deltasone - PO 20 mg DAILY [facility] Administration Topiramate 50 mg 01/01/17 12:30 01/02/17 10:16 Topamax - PO 50 mg BID [facility]AM Administration Valsartan 160 mg 01/01/17 22:00 01/01/17 21:22 Diovan - PO 160 mg HS [facility]AM Administration Impression 1. MONY 2. sarcoidosis 3. HTN 4. hyperlipidemia 5. cough 6. hx of anemia 7. nephrolithiasis - has passed multiple stones in the past 8. hypernatremia Plan - renal function is improving - may have MONY possibly from dehydration - change fluids to 1/2 ns as she is hypernatremic - monitor glucose - will need outpt follow up, will see in office - UA reviewed and is negative for blood or protein - repeat labs in am - will make more recommendations after reviewing labs - urine sodium is elevated however this was measured while she was on saline - cont current meds - will follow
[2017-01-02] MEDS: SODIUM CHLORIDE 0.45% 1,000 ML IV SCH (14:37)
--- NOTE | 2017-01-02 15:12 | PN ---
Progress Note, Physician History of Present Illness: pulmonary alert,+cough,less dyspneic - Current Medication List Current Medications: Active Medications Albuterol/Ipratropium (Duoneb -) 1 amp NEB Q6H PRN PRN Reason: SHORTNESS OF BREATH Last Admin: 01/02/17 10:45 Dose: 1 amp Atorvastatin Calcium (Lipitor -) 20 mg PO HS [facility] Last Admin: 01/01/17 21:22 Dose: 20 mg Budesonide/Formoterol Fumarate (Symbicort 160/4.5mcg -) 2 puff IH BID [facility] Last Admin: 01/02/17 10:17 Dose: 2 inh Cholecalciferol (Vitamin D3 -) 1,000 unit PO HS [facility] Last Admin: 01/01/17 21:22 Dose: 1,000 unit Heparin Sodium (Porcine) (Heparin -) 5,000 unit SQ BID [facility] Last Admin: 01/02/17 10:17 Dose: 5,000 unit Levofloxacin (Levaquin 250 Mg Premixed Ivpb -) 50 mls @ 50 mls/hr IVPB DAILY [facility] Last Admin: 01/02/17 10:20 Dose: 50 mls/hr Sodium Chloride (1/2 Normal Saline) 1,000 mls @ 75 mls/hr IV ASDIR [facility] Last Admin: 01/02/17 14:37 Dose: 75 mls/hr Pantoprazole Sodium (Protonix -) 40 mg PO DAILY [facility] Last Admin: 01/02/17 10:16 Dose: 40 mg Pramipexole Dihydrochloride (Mirapex -) 0.5 mg PO HS [facility] Last Admin: 01/01/17 21:23 Dose: 0.5 mg Pramipexole Dihydrochloride (Mirapex -) 0.25 mg PO DAILY [facility] Last Admin: 01/02/17 10:17 Dose: 0.25 mg Prednisone (Deltasone -) 20 mg PO DAILY [facility] Last Admin: 01/02/17 10:16 Dose: 20 mg Topiramate (Topamax -) 50 mg PO BID [facility] Last Admin: 01/02/17 10:16 Dose: 50 mg Valsartan (Diovan -) 160 mg PO HS [facility] Last Admin: 01/01/17 21:22 Dose: 160 mg - Objective Vital Signs: Vital Signs Temperature 97.9 F 01/02/17 10:00 Pulse Rate 99 H 03/03/17 10:00 Respiratory Rate 20 01/02/17 10:00 Blood Pressure 153/86 01/02/17 10:00 O2 Sat by Pulse Oximetry (%) 96 01/02/17 09:00 Constitutional: Yes: Well Nourished, Calm Eyes: Yes: WNL HENT: Yes: WNL Neck: Yes: WNL Cardiovascular: Yes: Regular Rate and Rhythm, S1, S2 Respiratory: Yes: Diminished Gastrointestinal: Yes: Normal Bowel Sounds, Soft Extremities: Yes: WNL Edema: No Labs: CBC, BMP 01/02/17 08:20 01/02/17 08:20 Problem List - Problems (1) Cough Code(s): R05 - COUGH (2) Sarcoidosis Code(s): D86.9 - SARCOIDOSIS, UNSPECIFIED (3) Shortness of breath Code(s): R06.02 - SHORTNESS OF BREATH (4) Acute kidney injury Code(s): N17.9 - ACUTE KIDNEY FAILURE, UNSPECIFIED (5) GERD (gastroesophageal reflux disease) Code(s): K21.9 - GASTRO-ESOPHAGEAL REFLUX DISEASE WITHOUT ESOPHAGITIS (6) Pneumonia Code(s): J18.9 - PNEUMONIA, UNSPECIFIED ORGANISM Assessment/Plan IMP RECURRENT NAZANIN INFILTRATE SARCOIDOSIS COUGH ACUTE KIDNEY INJURY IMPROVING GERD PLAN PREDNISONE INHALED BRONCHODILATORS IVF FLEXIBLE BRONCHOSCOPY on Thursday PROTONIX ANTIBIOTICS MONITOR TEJAL ARCHULETA Problem List - Problems (1) Cough Code(s): R05 - COUGH (2) Sarcoidosis Code(s): D86.9 - SARCOIDOSIS, UNSPECIFIED (3) Shortness of breath Code(s): R06.02 - SHORTNESS OF BREATH (4) Acute kidney injury Code(s): N17.9 - ACUTE KIDNEY FAILURE, UNSPECIFIED (5) GERD (gastroesophageal reflux disease) Code(s): K21.9 - GASTRO-ESOPHAGEAL REFLUX DISEASE WITHOUT ESOPHAGITIS (6) Pneumonia Code(s): J18.9 - PNEUMONIA, UNSPECIFIED ORGANISM
--- NOTE | 2017-01-02 15:40 | PN ---
Physical Exam: SUBJECTIVE: Patient seen and examined Patient resting in bed comfortably, nad. No acute events.afebrile and hemodynamically stable. states her cough is more severe, white flem. she has been ambulating in hallway w/o sob. She she denies resting sob, lightheadedness , diziness, chest pain, palpitations, nausea, vomiting ( some time have vomiting due to reaching during cough) denies burning urination, abdominal pain. OBJECTIVE: Vital Signs Period Temp Pulse Resp BP Sys/Hicks Pulse Ox Last 24 Hr 97.9 F-98.8 F 84-99 18-20 132-153/83-86 96-96 GENERAL: Awake, alert, and fully oriented, in no acute distress. HEAD: Normal with no signs of trauma. EYES: Pupils equal, round and reactive to light, extraocular movements intact, sclera anicteric, conjunctiva clear. EARS, NOSE, THROAT: Moist mucous membranes. NECK: supple without masses. LUNGS: upper lobe crackles HEART: Regular rate and rhythm, normal S1 and S2 ABDOMEN: Soft, nontender, not distended, normoactive bowel sounds MUSCULOSKELETAL: No CVA tenderness. UPPER EXTREMITIES: 2+ pulses, No peripheral edema. LOWER EXTREMITIES: 2+ pulses, warm, No peripheral edema. NEUROLOGICAL: Cranial nerves II-XII grossly intact. PSYCHIATRIC: Cooperative. Good eye contact. Appropriate mood and affect. SKIN: Warm, dry Laboratory Results - last 24 hr 01/01/17 01/01/17 01/02/17 17:20 18:00 06:30 WBC RBC Hgb Hct MCV MCHC RDW Plt Count MPV Neutrophils % Lymphocytes % Monocytes % Eosinophils % Basophils % Sodium Potassium Chloride Carbon Dioxide Anion Gap BUN Creatinine Creat Clearance w eGFR POC Glucometer 133 Random Glucose Hemoglobin A1c % 6.5 H Calcium Phosphorus Magnesium Total Bilirubin AST ALT Alkaline Phosphatase Total Protein Albumin Ur Random Sodium 135 Ur Random Potassium 25.7 Ur Random Chloride 139 01/02/17 01/02/17 08:20 08:20 WBC 8.7 RBC 4.27 Hgb 12.4 D Hct 38.1 MCV 89.1 MCHC 32.5 RDW 13.4 Plt Count 165 MPV 8.8 Neutrophils % 75.3 Lymphocytes % 16.2 D Monocytes % 7.4 D Eosinophils % 0.5 D Basophils % 0.6 Sodium 146 H Potassium 4.0 Chloride 115 H Carbon Dioxide 23 Anion Gap 8 BUN 29 H Creatinine 1.3 H D Creat Clearance w eGFR 43.01 POC Glucometer Random Glucose 100 D Hemoglobin A1c % Calcium 8.4 L Phosphorus 3.1 Magnesium 2.3 Total Bilirubin 0.2 D AST 9 L ALT 20 D Alkaline Phosphatase 72 D Total Protein 5.9 L Albumin 3.2 L Ur Random Sodium Ur Random Potassium Ur Random Chloride Active Medications Generic Name Dose Route Start Last Admin Trade Name Freq PRN Reason Stop Dose Admin Albuterol/Ipratropium 1 amp 01/01/17 04:28 01/02/17 10:45 Duoneb - NEB 1 amp Q6H PRN Administration SHORTNESS OF BREATH Atorvastatin Calcium 20 mg 01/01/17 22:00 01/01/17 21:22 Lipitor - PO 20 mg HS [facility] Administration Budesonide/Formoterol Fumarate 2 puff 01/01/17 14:15 01/02/17 10:17 Symbicort 160/4.5mcg - IH 2 inh BID [facility] Administration Cholecalciferol 1,000 unit 01/01/17 22:00 01/01/17 21:22 Vitamin D3 - PO 1,000 unit HS [facility] Administration Heparin Sodium (Porcine) 5,000 unit 01/01/17 10:00 01/02/17 10:17 Heparin - SQ 5,000 unit BID [facility] Administration Levofloxacin 50 mls @ 50 mls/hr 01/02/17 10:00 01/02/17 10:20 Levaquin 250 Mg Premixed Ivpb - IVPB 50 mls/hr DAILY [facility] Administration Sodium Chloride 1,000 mls @ 75 mls/hr 01/02/17 14:30 01/02/17 14:37 1/2 Normal Saline IV 75 mls/hr ASDIR [facility] Administration Pantoprazole Sodium 40 mg 01/01/17 13:30 01/02/17 10:16 Protonix - PO 40 mg DAILY [facility] Administration Pramipexole Dihydrochloride 0.5 mg 01/01/17 22:00 01/01/17 21:23 Mirapex - PO 0.5 mg HS [facility] Administration Pramipexole Dihydrochloride 0.25 mg 01/01/17 14:00 01/02/17 10:17 Mirapex - PO 0.25 mg DAILY [facility] Administration Prednisone 20 mg 01/01/17 10:00 01/02/17 10:16 Deltasone - PO 20 mg DAILY [facility] Administration Topiramate 50 mg 01/01/17 12:30 01/02/17 10:16 Topamax - PO 50 mg BID [facility] Administration Valsartan 160 mg 01/01/17 22:00 01/01/17 21:22 Diovan - PO 160 mg HS [facility] Administration ASSESSMENT/PLAN: Community acquired PNA -CT chest recurrent NAZANIN infiltrate -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 Thank you for this consultative opportunity. Problem List - Problems (1) Acute kidney injury Code(s): N17.9 - ACUTE KIDNEY FAILURE, UNSPECIFIED (2) Cough Code(s): R05 - COUGH (3) GERD (gastroesophageal reflux disease) Code(s): K21.9 - GASTRO-ESOPHAGEAL REFLUX DISEASE WITHOUT ESOPHAGITIS (4) Pneumonia Code(s): J18.9 - PNEUMONIA, UNSPECIFIED ORGANISM (5) Sarcoidosis Code(s): D86.9 - SARCOIDOSIS, UNSPECIFIED (6) Shortness of breath Code(s): R06.02 - SHORTNESS OF BREATH Visit type - Emergency Visit Emergency Visit: Yes ED Registration Date: 12/31/16 Care time: The patient presented to the Emergency Department on the above date and was hospitalized for further evaluation of their emergent condition. - New Patient This patient is new to me today: No - Critical Care Critical Care patient: No - Discharge Referral Referred to [facility] Med P.C.: No
--- NOTE | 2017-01-02 18:35 | PN ---
Physical Exam: SUBJECTIVE: Patient seen and examined. Had a coughing spell this morning. OBJECTIVE: Vital Signs Period Temp Pulse Resp BP Sys/Hicks Pulse Ox Last 24 Hr 97.9 F-98.8 F 84-99 18-20 132-153/83-86 96-96 GENERAL: The patient is awake, alert, and fully oriented, in no acute distress. HEAD: Normal with no signs of trauma. EYES: PERRL, extraocular movements intact, sclera anicteric, conjunctiva clear. No ptosis. LUNGS: Breath sounds equal, clear to auscultation bilaterally, no wheezes, no crackles, no accessory muscle use. Mild cough with deep inspiration again observed. HEART: Regular rate and rhythm, S1, S2 without murmur, rub or gallop. ABDOMEN: Soft, nontender, nondistended, normoactive bowel sounds, no guarding, no rebound EXTREMITIES: 2+ pulses, warm, well-perfused, no edema. NEUROLOGICAL: Cranial nerves II through XII grossly intact. Normal speech, gait not observed. Laboratory Results - last 24 hr 01/01/17 01/02/17 01/02/17 18:00 06:30 08:20 WBC 8.7 RBC 4.27 Hgb 12.4 D Hct 38.1 MCV 89.1 MCHC 32.5 RDW 13.4 Plt Count 165 MPV 8.8 Neutrophils % 75.3 Lymphocytes % 16.2 D Monocytes % 7.4 D Eosinophils % 0.5 D Basophils % 0.6 Sodium Potassium Chloride Carbon Dioxide Anion Gap BUN Creatinine Creat Clearance w eGFR Random Glucose Hemoglobin A1c % 6.5 H Calcium Phosphorus Magnesium Total Bilirubin AST ALT Alkaline Phosphatase Total Protein Albumin Ur Random Sodium 135 Ur Random Potassium 25.7 Ur Random Chloride 139 01/02/17 08:20 WBC RBC Hgb Hct MCV MCHC RDW Plt Count MPV Neutrophils % Lymphocytes % Monocytes % Eosinophils % Basophils % Sodium 146 H Potassium 4.0 Chloride 115 H Carbon Dioxide 23 Anion Gap 8 BUN 29 H Creatinine 1.3 H D Creat Clearance w eGFR 43.01 Random Glucose 100 D Hemoglobin A1c % Calcium 8.4 L Phosphorus 3.1 Magnesium 2.3 Total Bilirubin 0.2 D AST 9 L ALT 20 D Alkaline Phosphatase 72 D Total Protein 5.9 L Albumin 3.2 L Ur Random Sodium Ur Random Potassium Ur Random Chloride Active Medications Generic Name Dose Route Start Last Admin Trade Name Freq PRN Reason Stop Dose Admin Albuterol/Ipratropium 1 amp 01/01/17 04:28 01/02/17 10:45 Duoneb - NEB 1 amp Q6H PRN Administration SHORTNESS OF BREATH Atorvastatin Calcium 20 mg 01/01/17 22:00 01/01/17 21:22 Lipitor - PO 20 mg HS [facility] Administration Budesonide/Formoterol Fumarate 2 puff 01/01/17 14:15 01/02/17 10:17 Symbicort 160/4.5mcg - IH 2 inh BID [facility] Administration Cholecalciferol 1,000 unit 01/01/17 22:00 01/01/17 21:22 Vitamin D3 - PO 1,000 unit HS [facility] Administration Heparin Sodium (Porcine) 5,000 unit 01/01/17 10:00 01/02/17 10:17 Heparin - SQ 5,000 unit BID [facility] Administration Levofloxacin 50 mls @ 50 mls/hr 01/02/17 10:00 01/02/17 10:20 Levaquin 250 Mg Premixed Ivpb - IVPB 50 mls/hr DAILY [facility] Administration Sodium Chloride 1,000 mls @ 75 mls/hr 01/02/17 14:30 01/02/17 14:37 1/2 Normal Saline IV 75 mls/hr ASDIR [facility] Administration Pantoprazole Sodium 40 mg 01/01/17 13:30 01/02/17 10:16 Protonix - PO 40 mg DAILY [facility] Administration Pramipexole Dihydrochloride 0.5 mg 01/01/17 22:00 01/01/17 21:23 Mirapex - PO 0.5 mg HS [facility] Administration Pramipexole Dihydrochloride 0.25 mg 01/01/17 14:00 01/02/17 10:17 Mirapex - PO 0.25 mg DAILY [facility] Administration Prednisone 20 mg 01/01/17 10:00 01/02/17 10:16 Deltasone - PO 20 mg DAILY [facility] Administration Topiramate 50 mg 01/01/17 12:30 01/02/17 10:16 Topamax - PO 50 mg BID [facility] Administration Valsartan 160 mg 01/01/17 22:00 01/01/17 21:22 Diovan - PO 160 mg HS [facility] Administration ASSESSMENT/PLAN 51 year-old female with a significant PMH of HTN, HLD, COPD, sarcoidosis, kidney stones, and anemia who was 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 Found to have MONY on routine labs. Chronic cough --CT chest shows anterior NAZANIN infiltrate which was originally seen on and again on 08/28/16; waxing and waning infiltrate of unclear etiology --no fever, no leukocytosis; pulmonary service started antibiotic --on daily prednisone, Advair; duonebs PRN --pulmonary following MONY h/o renal calculi --Cr 1.3 (<--1.7); baseline 1.0 --patient is asymptomatic --US kidneys, ureters, bladder: unremarkable --FeNa 1.2% --continue IV fluids Sarcoidosis --not clear if cough is related --no other acute symptoms Hypertension --patient stopped taking Valsartan several weeks ago because her SBP was < 140 on home monitoring and PCP said OK to stop --BP elevated on this admission, continue Valsartan Hyperlipidemia --continue Lipitor F/E/N Fluids: NS @100mL/hr Electrolytes: replete as indicated Nutrition: diabetic, low sodium DVT prophylaxis: subq heparin, oob, ambulation Dispo: pulmonary service wants patient to remain in the hospital pending scheduling of bronchoscopy. Full Code. Visit type - Emergency Visit Emergency Visit: Yes ED Registration Date: 12/31/16 Care time: The patient presented to the Emergency Department on the above date and was hospitalized for further evaluation of their emergent condition. - New Patient This patient is new to me today: No - Critical Care Critical Care patient: No
[2017-01-02] MEDS: CHOLECALCIFEROL (VITAMIN D3) 1,000 UNIT TABLET (FP) PO SCH (21:47)
[2017-01-02] MEDS: VALSARTAN 160 MG TABLET (UD) PO SCH (21:47)
[2017-01-02] MEDS: ATORVASTATIN CA 20 MG TABLET (FP) PO SCH (21:47)
[2017-01-02] MEDS: PRAMIPEXOLE DIHYDROCHLORIDE 0.5 MG TABLET PO SCH (21:49)
[2017-01-03] MEDS: SODIUM CHLORIDE 0.45% 1,000 ML IV SCH ×2 (00:57→16:02)
[2017-01-03 08:04] LABS: CALCIUM 8.8 mg/dL (8.5-10.1); CREATININE 1.2 mg/dL (0.55-1.02)
--- NOTE | 2017-01-03 10:13 | PN ---
Progress Note (short form) - Note Progress Note: RENAL Pt is awake and alert no complaints states she has sarcoid and has had at least 100 kidney stones denies history of medullary sponge kidneys Last Vital Signs Temp Pulse Resp BP Pulse Ox 99 F 94 H 20 133/92 96 01/03/17 09:06 01/03/17 09:06 01/03/17 09:06 01/03/17 09:06 01/02/17 21:00 lungs clear cvs s1s2 rr abd soft nt nd ext no edema neuro a+ox3 skin no lesion ROS neg CBC, BMP 01/02/17 08:20 01/03/17 06:00 Current Medications Generic Name Dose Route Start Last Admin Trade Name Freq PRN Reason Stop Dose Admin Albuterol/Ipratropium 1 amp 01/01/17 04:28 01/02/17 10:45 Duoneb - NEB 1 amp Q6H PRN Administration SHORTNESS OF BREATH Atorvastatin Calcium 20 mg 01/01/17 22:00 01/02/17 21:47 Lipitor - PO 20 mg HS [facility]IRAM Administration Budesonide/Formoterol Fumarate 2 puff 01/01/17 14:15 01/02/17 21:50 Symbicort 160/4.5mcg - IH 2 inh BID [facility]AM Administration Cholecalciferol 1,000 unit 01/01/17 22:00 01/02/17 21:47 Vitamin D3 - PO 1,000 unit HS [facility]AM Administration Heparin Sodium (Porcine) 5,000 unit 01/01/17 10:00 01/02/17 21:49 Heparin - SQ 5,000 unit BID [facility]AM Administration Levofloxacin 50 mls @ 50 mls/hr 01/02/17 10:00 01/02/17 10:20 Levaquin 250 Mg Premixed Ivpb - IVPB 50 mls/hr DAILY [facility]AM Administration Sodium Chloride 1,000 mls @ 75 mls/hr 01/02/17 14:30 01/03/17 00:57 1/2 Normal Saline IV 75 mls/hr ASDIR [facility]AM Administration Pantoprazole Sodium 40 mg 01/01/17 13:30 01/02/17 10:16 Protonix - PO 40 mg DAILY [facility]AM Administration Pramipexole Dihydrochloride 0.5 mg 01/01/17 22:00 01/02/17 21:49 Mirapex - PO 0.5 mg HS [facility]AM Administration Pramipexole Dihydrochloride 0.25 mg 01/01/17 14:00 01/02/17 10:17 Mirapex - PO 0.25 mg DAILY [facility]AM Administration Prednisone 20 mg 01/01/17 10:00 01/02/17 10:16 Deltasone - PO 20 mg DAILY [facility] Administration Topiramate 50 mg 01/01/17 12:30 01/02/17 21:47 Topamax - PO 50 mg BID [facility]AM Administration Valsartan 160 mg 01/01/17 22:00 01/02/17 21:47 Diovan - PO 160 mg HS [facility]AM Administration Impression 1. MONY 2. sarcoidosis 3. HTN 4. hyperlipidemia 5. cough 6. hx of anemia 7. nephrolithiasis - Topamax can cause kidney stones but she has had only one or two since she started topamax 8. hypernatremia Plan - renal function is improving - MONY from dehydration - [id number] fluids - monitor glucose. DM also increases chances of oxalate stones - will need outpt follow up, - may be a candidate for urocit k as outpatient - reminded to increase water intake to around 3 liters per day MV
[2017-01-03] MEDS ORDERED: PT OWN MED DRAWER 7, Y5N ONE ×3 (10:17→21:16)
[2017-01-03] MEDS: predniSONE 20 MG TABLET (UD) PO SCH (10:20)
[2017-01-03] MEDS: HEPARIN NA (PORCINE) 5,000 UNITS/ML 1ML VIAL SQ SCH ×2 (10:20→21:45)
[2017-01-03] MEDS: LEVOFLOXACIN 250 MG IVPB 50 ML IVPB SCH (10:21)
[2017-01-03] MEDS: SODIUM CHLORIDE 1,000 ML IV SCH (10:22)
[2017-01-03] MEDS: BUDESONIDE/FORMETEROL FUMARATE 160/4.5 mcg INHALER IH SCH ×2 (10:22→21:45)
[2017-01-03] MEDS: PANTOPRAZOLE 40 MG TABLET (FP) PO SCH (10:22)
[2017-01-03] MEDS: PRAMIPEXOLE DIHYDROCHLORIDE 0.25 MG TABLET PO SCH (10:22)
[2017-01-03] MEDS: TOPIRAMATE 25 MG TABLET (FP) PO SCH ×2 (10:23→21:45)
--- NOTE | 2017-01-03 11:14 | PN ---
Progress Note (short form) - Note Progress Note: Breathing feels a little better today. Ambulating in her room W/O O2. Some dry cough. No hemoptysis. Intake & Output 12/31/16 01/01/17 01/02/17 01/03/17 23:59 23:59 23:59 23:59 Intake Total 1400 1250 900 Balance 1400 1250 900 Weight 205 lb 205 lb Last Vital Signs Temp Pulse Resp BP Pulse Ox 99 F 94 H 20 133/92 96 01/03/17 09:06 01/03/17 09:06 01/03/17 09:06 01/03/17 09:06 01/02/17 21:00 Active Medications Albuterol/Ipratropium (Duoneb -) 1 amp NEB Q6H PRN PRN Reason: SHORTNESS OF BREATH Last Admin: 01/02/17 10:45 Dose: 1 amp Atorvastatin Calcium (Lipitor -) 20 mg PO HS [facility] Last Admin: 01/02/17 21:47 Dose: 20 mg Budesonide/Formoterol Fumarate (Symbicort 160/4.5mcg -) 2 puff IH BID [facility] Last Admin: 01/03/17 10:22 Dose: 2 inh Cholecalciferol (Vitamin D3 -) 1,000 unit PO HS [facility] Last Admin: 01/02/17 21:47 Dose: 1,000 unit Heparin Sodium (Porcine) (Heparin -) 5,000 unit SQ BID [facility] Last Admin: 01/03/17 10:20 Dose: 5,000 unit Levofloxacin (Levaquin 250 Mg Premixed Ivpb -) 50 mls @ 50 mls/hr IVPB DAILY [facility] Last Admin: 01/03/17 10:21 Dose: 50 mls/hr Sodium Chloride (1/2 Normal Saline) 1,000 mls @ 75 mls/hr IV ASDIR [facility] Last Admin: 01/03/17 00:57 Dose: 75 mls/hr Pantoprazole Sodium (Protonix -) 40 mg PO DAILY [facility] Last Admin: 01/03/17 10:22 Dose: 40 mg Pramipexole Dihydrochloride (Mirapex -) 0.5 mg PO HS [facility] Last Admin: 01/02/17 21:49 Dose: 0.5 mg Pramipexole Dihydrochloride (Mirapex -) 0.25 mg PO DAILY [facility] Last Admin: 01/03/17 10:22 Dose: 0.25 mg Prednisone (Deltasone -) 20 mg PO DAILY [facility] Last Admin: 01/03/17 10:20 Dose: 20 mg Topiramate (Topamax -) 50 mg PO BID [facility] Last Admin: 01/03/17 10:23 Dose: 50 mg Valsartan (Diovan -) 160 mg PO HS [facility] Last Admin: 01/02/17 21:47 Dose: 160 mg Constitutional: Yes: Well Nourished, NAD Eyes: Yes: WNL HENT: Yes: WNL Neck: Yes: WNL Cardiovascular: Yes: Regular Rate and Rhythm, S1, S2 Respiratory: Yes: Diminished Gastrointestinal: Yes: Normal Bowel Sounds, Soft Extremities: Yes: WNL Edema: No Labs: Laboratory Results - last 24 hr 01/02/17 01/02/17 01/03/17 08:20 08:20 06:00 WBC 8.7 RBC 4.27 Hgb 12.4 D Hct 38.1 MCV 89.1 MCHC 32.5 RDW 13.4 Plt Count 165 MPV 8.8 Neutrophils % 75.3 Lymphocytes % 16.2 D Monocytes % 7.4 D Eosinophils % 0.5 D Basophils % 0.6 Sodium 146 H 144 Potassium 4.0 3.8 Chloride 115 H 112 H Carbon Dioxide 23 24 Anion Gap 8 8 BUN 29 H 25 H Creatinine 1.3 H D 1.2 H Creat Clearance w eGFR 43.01 Random Glucose 100 D 95 Calcium 8.4 L 8.8 Phosphorus 3.1 Magnesium 2.3 Total Bilirubin 0.2 D AST 9 L ALT 20 D Alkaline Phosphatase 72 D Total Protein 5.9 L Albumin 3.2 L Problem List - Problems (1) Cough Code(s): R05 - COUGH (2) Sarcoidosis Code(s): D86.9 - SARCOIDOSIS, UNSPECIFIED (3) Shortness of breath Code(s): R06.02 - SHORTNESS OF BREATH (4) Acute kidney injury Code(s): N17.9 - ACUTE KIDNEY FAILURE, UNSPECIFIED (5) GERD (gastroesophageal reflux disease) Code(s): K21.9 - GASTRO-ESOPHAGEAL REFLUX DISEASE WITHOUT ESOPHAGITIS (6) Pneumonia Code(s): J18.9 - PNEUMONIA, UNSPECIFIED ORGANISM Assessment/Plan IMP RECURRENT NAZANIN INFILTRATE SARCOIDOSIS COUGH ACUTE KIDNEY INJURY IMPROVING GERD PLAN PREDNISONE INHALED BRONCHODILATORS IVF ANTICIPATED FLEXIBLE BRONCHOSCOPY ON THURSDAY PROTONIX ANTIBIOTICS MONITOR TEJAL Garnica
--- NOTE | 2017-01-03 13:39 | PN ---
Physical Exam: SUBJECTIVE: Patient seen and examined at bedside. No coughing spasms today. OBJECTIVE: Vital Signs Period Temp Pulse Resp BP Sys/Hicks Pulse Ox Last 24 Hr 97.9 F-99 F 81-94 18-20 130-142/75-92 96 GENERAL: The patient is awake, alert, and fully oriented, in no acute distress. HEAD: Normal with no signs of trauma. EYES: PERRL, extraocular movements intact, sclera anicteric, conjunctiva clear. No ptosis. LUNGS: Breath sounds equal, clear to auscultation bilaterally, no wheezes, no crackles, no accessory muscle use. Mild cough with deep inspiration again observed. HEART: Regular rate and rhythm, S1, S2 without murmur, rub or gallop. ABDOMEN: Soft, nontender, nondistended, normoactive bowel sounds, no guarding, no rebound EXTREMITIES: 2+ pulses, warm, well-perfused, no edema. NEUROLOGICAL: Cranial nerves II through XII grossly intact. Normal speech, gait not observed. Laboratory Results - last 24 hr 01/03/17 06:00 Sodium 144 Potassium 3.8 Chloride 112 H Carbon Dioxide 24 Anion Gap 8 BUN 25 H Creatinine 1.2 H Random Glucose 95 Calcium 8.8 Active Medications Generic Name Dose Route Start Last Admin Trade Name Freq PRN Reason Stop Dose Admin Albuterol/Ipratropium 1 amp 01/01/17 04:28 01/02/17 10:45 Duoneb - NEB 1 amp Q6H PRN Administration SHORTNESS OF BREATH Atorvastatin Calcium 20 mg 01/01/17 22:00 01/02/17 21:47 Lipitor - PO 20 mg HS [facility] Administration Budesonide/Formoterol Fumarate 2 puff 01/01/17 14:15 01/03/17 10:22 Symbicort 160/4.5mcg - IH 2 inh BID [facility] Administration Cholecalciferol 1,000 unit 01/01/17 22:00 01/02/17 21:47 Vitamin D3 - PO 1,000 unit HS [facility] Administration Heparin Sodium (Porcine) 5,000 unit 01/01/17 10:00 01/03/17 10:20 Heparin - SQ 5,000 unit BID [facility] Administration Levofloxacin 50 mls @ 50 mls/hr 01/02/17 10:00 01/03/17 10:21 Levaquin 250 Mg Premixed Ivpb - IVPB 50 mls/hr DAILY [facility] Administration Sodium Chloride 1,000 mls @ 75 mls/hr 01/02/17 14:30 01/03/17 00:57 1/2 Normal Saline IV 75 mls/hr ASDIR [facility] Administration Pantoprazole Sodium 40 mg 01/01/17 13:30 01/03/17 10:22 Protonix - PO 40 mg DAILY [facility] Administration Pramipexole Dihydrochloride 0.5 mg 01/01/17 22:00 01/02/17 21:49 Mirapex - PO 0.5 mg HS [facility] Administration Pramipexole Dihydrochloride 0.25 mg 01/01/17 14:00 01/03/17 10:22 Mirapex - PO 0.25 mg DAILY [facility] Administration Prednisone 20 mg 01/01/17 10:00 01/03/17 10:20 Deltasone - PO 20 mg DAILY [facility] Administration Topiramate 50 mg 01/01/17 12:30 01/03/17 10:23 Topamax - PO 50 mg BID [facility] Administration Valsartan 160 mg 01/01/17 22:00 01/02/17 21:47 Diovan - PO 160 mg HS [facility] Administration ASSESSMENT/PLAN 51 year-old female with a significant PMH of HTN, HLD, COPD, sarcoidosis, kidney stones, and anemia who was sent by Dr. 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 Found to have MONY on routine labs. Chronic cough --CT chest shows anterior NAZANIN infiltrate which was originally seen on and again on 08/28/16; waxing and waning infiltrate of unclear etiology --no fever, no leukocytosis; pulmonary service started antibiotic --on daily prednisone, Advair; duonebs PRN --pulmonary following MONY h/o renal calculi --Cr 1.2 (<--1.7); baseline 1.0 --patient is asymptomatic --US kidneys, ureters, bladder: unremarkable --continue IV fluids Sarcoidosis --not clear if cough is related --no other acute symptoms Hypertension --BP well controlled now on Valsartan Hyperlipidemia --continue Lipitor F/E/N Fluids: NS @100mL/hr Electrolytes: replete as indicated Nutrition: diabetic, low sodium DVT prophylaxis: subq heparin, oob, ambulation Dispo: pulmonary service wants patient to remain in the hospital pending scheduling of bronchoscopy. Full Code. Visit type - Emergency Visit Emergency Visit: Yes ED Registration Date: 12/31/16 Care time: The patient presented to the Emergency Department on the above date and was hospitalized for further evaluation of their emergent condition. - New Patient This patient is new to me today: No - Critical Care Critical Care patient: No
[2017-01-03] MEDS: VALSARTAN 160 MG TABLET (UD) PO SCH (21:45)
[2017-01-03] MEDS: CHOLECALCIFEROL (VITAMIN D3) 1,000 UNIT TABLET (FP) PO SCH (21:45)
[2017-01-03] MEDS: PRAMIPEXOLE DIHYDROCHLORIDE 0.5 MG TABLET PO SCH (21:45)
[2017-01-03] MEDS: ATORVASTATIN CA 20 MG TABLET (FP) PO SCH (21:45)
[2017-01-04] MEDS: predniSONE 20 MG TABLET (UD) PO SCH (09:57)
[2017-01-04] MEDS: HEPARIN NA (PORCINE) 5,000 UNITS/ML 1ML VIAL SQ SCH ×2 (09:57→22:16)
[2017-01-04] MEDS: PRAMIPEXOLE DIHYDROCHLORIDE 0.25 MG TABLET PO SCH (09:58)
[2017-01-04] MEDS: LEVOFLOXACIN 250 MG IVPB 50 ML IVPB SCH (09:58)
[2017-01-04] MEDS: TOPIRAMATE 25 MG TABLET (FP) PO SCH ×2 (09:59→22:16)
[2017-01-04] MEDS: BUDESONIDE/FORMETEROL FUMARATE 160/4.5 mcg INHALER IH SCH ×2 (09:59→22:16)
[2017-01-04] MEDS: PANTOPRAZOLE 40 MG TABLET (FP) PO SCH (09:59)
--- NOTE | 2017-01-04 10:04 | PN ---
Physical Exam: SUBJECTIVE: Patient seen and examined. No coughing. Feels better. OBJECTIVE: Vital Signs Period Temp Pulse Resp BP Sys/Hicks Pulse Ox Last 24 Hr 98.1 F-99.0 F 88-94 20-20 130-148/80-94 GENERAL: The patient is awake, alert, and fully oriented, in no acute distress. HEAD: Normal with no signs of trauma. EYES: PERRL, extraocular movements intact, sclera anicteric, conjunctiva clear. No ptosis. LUNGS: Breath sounds equal, clear to auscultation bilaterally, no wheezes, no crackles, no accessory muscle use. No cough observed. HEART: Regular rate and rhythm, S1, S2 without murmur, rub or gallop. ABDOMEN: Soft, nontender, nondistended, normoactive bowel sounds, no guarding, no rebound EXTREMITIES: 2+ pulses, warm, well-perfused, no edema. NEUROLOGICAL: Cranial nerves II through XII grossly intact. Normal speech, gait not observed. Active Medications Generic Name Dose Route Start Last Admin Trade Name Freq PRN Reason Stop Dose Admin Albuterol/Ipratropium 1 amp 01/01/17 04:28 01/02/17 10:45 Duoneb - NEB 1 amp Q6H PRN Administration SHORTNESS OF BREATH Atorvastatin Calcium 20 mg 01/01/17 22:00 01/03/17 21:45 Lipitor - PO 20 mg HS [facility] Administration Budesonide/Formoterol Fumarate 2 puff 01/01/17 14:15 01/04/17 09:59 Symbicort 160/4.5mcg - IH 2 inh BID [facility] Administration Cholecalciferol 1,000 unit 01/01/17 22:00 01/03/17 21:45 Vitamin D3 - PO 1,000 unit HS [facility] Administration Heparin Sodium (Porcine) 5,000 unit 01/01/17 10:00 01/04/17 09:57 Heparin - SQ 5,000 unit BID [facility] Administration Levofloxacin 50 mls @ 50 mls/hr 01/02/17 10:00 01/04/17 09:58 Levaquin 250 Mg Premixed Ivpb - IVPB 50 mls/hr DAILY [facility] Administration Sodium Chloride 1,000 mls @ 75 mls/hr 01/02/17 14:30 01/03/17 16:02 1/2 Normal Saline IV 75 mls/hr ASDIR [facility] Administration Pantoprazole Sodium 40 mg 01/01/17 13:30 01/04/17 09:59 Protonix - PO 40 mg DAILY [facility] Administration Pramipexole Dihydrochloride 0.5 mg 01/01/17 22:00 01/03/17 21:45 Mirapex - PO 0.5 mg HS [facility] Administration Pramipexole Dihydrochloride 0.25 mg 01/01/17 14:00 01/04/17 09:58 Mirapex - PO 0.25 mg DAILY [facility] Administration Prednisone 20 mg 01/01/17 10:00 01/04/17 09:57 Deltasone - PO 20 mg DAILY [facility] Administration Topiramate 50 mg 01/01/17 12:30 01/04/17 09:59 Topamax - PO 50 mg BID [facility] Administration Valsartan 160 mg 01/01/17 22:00 01/03/17 21:45 Diovan - PO 160 mg HS [facility] Administration ASSESSMENT/PLAN 51 year-old female with a significant PMH of HTN, HLD, COPD, sarcoidosis, kidney stones, and anemia who was sent by Dr. 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 Found to have MONY on routine labs. Chronic cough --CT chest shows anterior NAZANIN infiltrate which was originally seen on and again on 08/28/16; waxing and waning infiltrate of unclear etiology --no fever, no leukocytosis; pulmonary service started antibiotic --on daily prednisone, Advair; duonebs PRN --pulmonary following MONY h/o renal calculi --Cr 1.2 (<--1.7); baseline 1.0 --patient is asymptomatic --US kidneys, ureters, bladder: unremarkable --continue IV fluids given history of renal calculi, maintain good hydration through tomorrow's procedure Sarcoidosis --not clear if cough is related --no other acute symptoms Hypertension --BP better controlled on Valsartan, will continue Hyperlipidemia --continue Lipitor F/E/N Fluids: NS @100mL/hr Electrolytes: replete as indicated Nutrition: diabetic, low sodium DVT prophylaxis: subq heparin, oob, ambulation Dispo: bronchoscopy tomorrow. Full Code. Visit type - Emergency Visit Emergency Visit: Yes ED Registration Date: 12/31/16 Care time: The patient presented to the Emergency Department on the above date and was hospitalized for further evaluation of their emergent condition. - New Patient This patient is new to me today: No - Critical Care Critical Care patient: No
--- NOTE | 2017-01-04 10:19 | PN ---
Progress Note (short form) - Note Progress Note: Breathing continues to slowly improve. Less SOB and cough. No hemoptysis. Intake & Output 01/01/17 01/02/17 01/03/17 01/04/17 23:59 23:59 23:59 23:59 Intake Total 1400 1250 3200 1000 Balance 1400 1250 3200 1000 Weight 205 lb Last Vital Signs Temp Pulse Resp BP Pulse Ox 98.6 F 88 20 133/94 96 01/04/17 09:06 01/04/17 09:06 01/04/17 09:06 01/04/17 09:06 01/03/17 09:00 Active Medications Albuterol/Ipratropium (Duoneb -) 1 amp NEB Q6H PRN PRN Reason: SHORTNESS OF BREATH Last Admin: 01/02/17 10:45 Dose: 1 amp Atorvastatin Calcium (Lipitor -) 20 mg PO HS [facility] Last Admin: 01/03/17 21:45 Dose: 20 mg Budesonide/Formoterol Fumarate (Symbicort 160/4.5mcg -) 2 puff IH BID [facility] Last Admin: 01/04/17 09:59 Dose: 2 inh Cholecalciferol (Vitamin D3 -) 1,000 unit PO HS [facility] Last Admin: 01/03/17 21:45 Dose: 1,000 unit Heparin Sodium (Porcine) (Heparin -) 5,000 unit SQ BID [facility] Last Admin: 01/04/17 09:57 Dose: 5,000 unit Levofloxacin (Levaquin 250 Mg Premixed Ivpb -) 50 mls @ 50 mls/hr IVPB DAILY [facility] Last Admin: 01/04/17 09:58 Dose: 50 mls/hr Sodium Chloride (1/2 Normal Saline) 1,000 mls @ 75 mls/hr IV ASDIR [facility] Last Admin: 01/03/17 16:02 Dose: 75 mls/hr Pantoprazole Sodium (Protonix -) 40 mg PO DAILY [facility] Last Admin: 01/04/17 09:59 Dose: 40 mg Pramipexole Dihydrochloride (Mirapex -) 0.5 mg PO HS [facility] Last Admin: 01/03/17 21:45 Dose: 0.5 mg Pramipexole Dihydrochloride (Mirapex -) 0.25 mg PO DAILY [facility] Last Admin: 01/04/17 09:58 Dose: 0.25 mg Prednisone (Deltasone -) 20 mg PO DAILY [facility] Last Admin: 01/04/17 09:57 Dose: 20 mg Topiramate (Topamax -) 50 mg PO BID [facility] Last Admin: 01/04/17 09:59 Dose: 50 mg Valsartan (Diovan -) 160 mg PO HS [facility] Last Admin: 01/03/17 21:45 Dose: 160 mg Constitutional: Yes: Well Nourished, NAD Eyes: Yes: WNL HENT: Yes: WNL Neck: Yes: WNL Cardiovascular: Yes: Regular Rate and Rhythm, S1, S2 Respiratory: Yes: Diminished, no wheeze Gastrointestinal: Yes: Normal Bowel Sounds, Soft Extremities: Yes: WNL Edema: No Labs: Problem List - Problems (1) Cough Code(s): R05 - COUGH (2) Sarcoidosis Code(s): D86.9 - SARCOIDOSIS, UNSPECIFIED (3) Shortness of breath Code(s): R06.02 - SHORTNESS OF BREATH (4) Acute kidney injury Code(s): N17.9 - ACUTE KIDNEY FAILURE, UNSPECIFIED (5) GERD (gastroesophageal reflux disease) Code(s): K21.9 - GASTRO-ESOPHAGEAL REFLUX DISEASE WITHOUT ESOPHAGITIS (6) Pneumonia Code(s): J18.9 - PNEUMONIA, UNSPECIFIED ORGANISM Assessment/Plan IMP RECURRENT NAZANIN INFILTRATE SARCOIDOSIS COUGH ACUTE KIDNEY INJURY IMPROVING GERD PLAN PREDNISONE INHALED BRONCHODILATORS PROTONIX ANTIBIOTICS ANTICIPATED FLEXIBLE BRONCHOSCOPY TOMORROW Dr Garnica
[2017-01-04] MEDS ORDERED: PT OWN MED DRAWER 7, Y5N ONE ×2 (10:29→21:25)
--- NOTE | 2017-01-04 12:44 | PN ---
Progress Note (short form) - Note Progress Note: RENAL Pt is awake and alert no complaints Last Vital Signs Temp Pulse Resp BP Pulse Ox 98.6 F 88 20 133/94 97 01/04/17 09:06 01/04/17 09:06 01/04/17 09:06 01/04/17 09:06 01/04/17 09:00 lungs clear cvs s1s2 rr abd soft nt nd obese ext no edema neuro a+ox3 skin no lesion ROS neg CBC, BMP 01/02/17 08:20 01/03/17 06:00 Current Medications Generic Name Dose Route Start Last Admin Trade Name Freq PRN Reason Stop Dose Admin Albuterol/Ipratropium 1 amp 01/01/17 04:28 01/02/17 10:45 Duoneb - NEB 1 amp Q6H PRN Administration SHORTNESS OF BREATH Atorvastatin Calcium 20 mg 01/01/17 22:00 01/03/17 21:45 Lipitor - PO 20 mg HS [facility] Administration Budesonide/Formoterol Fumarate 2 puff 01/01/17 14:15 01/04/17 09:59 Symbicort 160/4.5mcg - IH 2 inh BID [facility] Administration Cholecalciferol 1,000 unit 01/01/17 22:00 01/03/17 21:45 Vitamin D3 - PO 1,000 unit HS [facility] Administration Heparin Sodium (Porcine) 5,000 unit 01/01/17 10:00 01/04/17 09:57 Heparin - SQ 5,000 unit BID [facility] Administration Levofloxacin 50 mls @ 50 mls/hr 01/02/17 10:00 01/04/17 09:58 Levaquin 250 Mg Premixed Ivpb - IVPB 50 mls/hr DAILY [facility] Administration Sodium Chloride 1,000 mls @ 75 mls/hr 01/02/17 14:30 01/03/17 16:02 1/2 Normal Saline IV 75 mls/hr ASDIR [facility] Administration Pantoprazole Sodium 40 mg 01/01/17 13:30 01/04/17 09:59 Protonix - PO 40 mg DAILY [facility] Administration Pramipexole Dihydrochloride 0.5 mg 01/01/17 22:00 01/03/17 21:45 Mirapex - PO 0.5 mg HS [facility] Administration Pramipexole Dihydrochloride 0.25 mg 01/01/17 14:00 01/04/17 09:58 Mirapex - PO 0.25 mg DAILY [facility] Administration Prednisone 20 mg 01/01/17 10:00 01/04/17 09:57 Deltasone - PO 20 mg DAILY [facility] Administration Topiramate 50 mg 01/01/17 12:30 01/04/17 09:59 Topamax - PO 50 mg BID [facility] Administration Valsartan 160 mg 01/01/17 22:00 01/03/17 21:45 Diovan - PO 160 mg HS [facility] Administration Impression 1. MONY 2. sarcoidosis 3. HTN 4. hyperlipidemia 5. cough 6. hx of anemia 7. nephrolithiasis - Topamax can cause kidney stones but she has had only one or two since she started topamax 8. hypernatremia 9. probable ckd, nonproteinuric Plan - continue fluids - monitor glucose. DM also increases chances of oxalate stones - will need outpt follow up, - may be a candidate for urocit k as outpatient - reminded to increase water intake to around 3 liters per day - cautious use of topiramate MV
[2017-01-04] MEDS: SODIUM CHLORIDE 0.45% 1,000 ML IV SCH (15:04)
[2017-01-04] MEDS: ATORVASTATIN CA 20 MG TABLET (FP) PO SCH (22:16)
[2017-01-04] MEDS: VALSARTAN 160 MG TABLET (UD) PO SCH (22:16)
[2017-01-04] MEDS: PRAMIPEXOLE DIHYDROCHLORIDE 0.5 MG TABLET PO SCH (22:16)
[2017-01-04] MEDS: CHOLECALCIFEROL (VITAMIN D3) 1,000 UNIT TABLET (FP) PO SCH (22:16)
[2017-01-05 07:44] LABS: MCH 29.5 pg (25.7-33.7); MCHC 33.2 g/dl (32.0-36.0); MEAN CELL VOLUME 88.9 fl (80-96); PLATELET COUNT 166 K/MM3 (134-434); RDW 13.1 % (11.6-15.6); WHITE BLOOD COUNT 7.8 K/mm3 (4.0-10.0)
[2017-01-05 08:37] LABS: ALBUMIN 3.3 g/dl (3.4-5.0); CALCIUM 8.9 mg/dL (8.5-10.1)
[2017-01-05 08:40] LABS: BILIRUBIN,TOTAL 0.2 mg/dL (0.2-1.0); CREATININE 1.2 mg/dL (0.55-1.02); TOT PROT 6.4 g/dl (6.4-8.2)
[2017-01-05] MEDS: LEVOFLOXACIN 250 MG IVPB 50 ML IVPB SCH (09:23)
[2017-01-05 09:32] LABS: PLATELET ESTIMATE ADEQUATE (NORMAL)
[2017-01-05] MEDS: BUDESONIDE/FORMETEROL FUMARATE 160/4.5 mcg INHALER IH SCH ×2 (10:00→22:22)
[2017-01-05] MEDS: HEPARIN NA (PORCINE) 5,000 UNITS/ML 1ML VIAL SQ SCH ×2 (10:00→22:22)
[2017-01-05] MEDS: TOPIRAMATE 25 MG TABLET (FP) PO SCH ×2 (10:00→22:22)
[2017-01-05] MEDS ORDERED: MIDAZOLAM HCL 2 MG/2 ML SINGLE DOSE VIAL ONE (12:14)
[2017-01-05] MEDS ORDERED: ROCURONIUM BROMIDE 50 MG/5 ML VIAL ONE (12:21)
[2017-01-05] MEDS ORDERED: PROPOFOL 20 ML ONE ×2 (12:21→12:39)
[2017-01-05] MEDS ORDERED: SUCCINYLCHOLINE CHLORIDE 200 MG/10 ML VIAL ONE (12:21)
--- NOTE | 2017-01-05 12:39 | PN ---
Progress Note, Physician History of Present Illness: Pt seen and examined at bedside. She is going for a bronchoscopy today for her chronic cough. She has no new complaints. - Current Medication List Current Medications: Active Medications Albuterol/Ipratropium (Duoneb -) 1 amp NEB Q6H PRN PRN Reason: SHORTNESS OF BREATH Last Admin: 01/02/17 10:45 Dose: 1 amp Atorvastatin Calcium (Lipitor -) 20 mg PO HS [facility] Last Admin: 01/04/17 22:16 Dose: 20 mg Budesonide/Formoterol Fumarate (Symbicort 160/4.5mcg -) 2 puff IH BID [facility] Last Admin: 01/04/17 22:16 Dose: 2 puff Cholecalciferol (Vitamin D3 -) 1,000 unit PO HS [facility] Last Admin: 01/04/17 22:16 Dose: 1,000 unit Heparin Sodium (Porcine) (Heparin -) 5,000 unit SQ BID [facility] Last Admin: 01/04/17 22:16 Dose: 5,000 unit Levofloxacin (Levaquin 250 Mg Premixed Ivpb -) 50 mls @ 50 mls/hr IVPB DAILY [facility] Last Admin: 01/05/17 09:23 Dose: 50 mls/hr Sodium Chloride (1/2 Normal Saline) 1,000 mls @ 75 mls/hr IV ASDIR [facility] Last Admin: 01/04/17 15:04 Dose: Not Given Pantoprazole Sodium (Protonix -) 40 mg PO DAILY [facility] Last Admin: 01/04/17 09:59 Dose: 40 mg Pramipexole Dihydrochloride (Mirapex -) 0.5 mg PO HS [facility] Last Admin: 01/04/17 22:16 Dose: 0.5 mg Pramipexole Dihydrochloride (Mirapex -) 0.25 mg PO DAILY [facility] Last Admin: 01/04/17 09:58 Dose: 0.25 mg Prednisone (Deltasone -) 20 mg PO DAILY [facility] Last Admin: 01/04/17 09:57 Dose: 20 mg Topiramate (Topamax -) 50 mg PO BID [facility] Last Admin: 01/04/17 22:16 Dose: 50 mg Valsartan (Diovan -) 160 mg PO HS [facility] Last Admin: 01/04/17 22:16 Dose: 160 mg - Objective Vital Signs: Vital Signs Temperature 98.8 F 01/05/17 10:00 Pulse Rate 87 01/05/17 10:00 Respiratory Rate 20 01/05/17 10:00 Blood Pressure 132/88 01/05/17 10:00 O2 Sat by Pulse Oximetry (%) 99 01/05/17 09:00 Constitutional: Yes: Calm Eyes: Yes: Conjunctiva Clear HENT: Yes: Atraumatic Neck: Yes: Supple Cardiovascular: Yes: S1, S2 Respiratory: Yes: CTA Bilaterally Gastrointestinal: Yes: Normal Bowel Sounds, Soft Genitourinary: Yes: WNL Musculoskeletal: Yes: WNL Edema: No Neurological: Yes: Oriented Psychiatric: Yes: Oriented Labs: CBC, BMP 01/05/17 06:00 01/05/17 06:00 Problem List - Problems (1) Acute kidney injury Code(s): N17.9 - ACUTE KIDNEY FAILURE, UNSPECIFIED (2) Cough Code(s): R05 - COUGH (3) GERD (gastroesophageal reflux disease) Code(s): K21.9 - GASTRO-ESOPHAGEAL REFLUX DISEASE WITHOUT ESOPHAGITIS (4) Sarcoidosis Code(s): D86.9 - SARCOIDOSIS, UNSPECIFIED (5) Shortness of breath Code(s): R06.02 - SHORTNESS OF BREATH Assessment/Plan Current Medications Generic Name Dose Route Start Last Admin Trade Name Freq PRN Reason Stop Dose Admin Albuterol/Ipratropium 1 amp 01/01/17 04:28 01/02/17 10:45 Duoneb - NEB 1 amp Q6H PRN Administration SHORTNESS OF BREATH Atorvastatin Calcium 20 mg 01/01/17 22:00 01/04/17 22:16 Lipitor - PO 20 mg HS [facility] Administration Budesonide/Formoterol Fumarate 2 puff 01/01/17 14:15 01/04/17 22:16 Symbicort 160/4.5mcg - IH 2 puff BID [facility] Administration Cholecalciferol 1,000 unit 01/01/17 22:00 01/04/17 22:16 Vitamin D3 - PO 1,000 unit HS [facility] Administration Heparin Sodium (Porcine) 5,000 unit 01/01/17 10:00 01/04/17 22:16 Heparin - SQ 5,000 unit BID [facility] Administration Levofloxacin 50 mls @ 50 mls/hr 01/02/17 10:00 01/05/17 09:23 Levaquin 250 Mg Premixed Ivpb - IVPB 50 mls/hr DAILY [facility] Administration Sodium Chloride 1,000 mls @ 75 mls/hr 01/02/17 14:30 01/04/17 15:04 1/2 Normal Saline IV Not Given ASDIR [facility] Pantoprazole Sodium 40 mg 01/01/17 13:30 01/04/17 09:59 Protonix - PO 40 mg DAILY [facility] Administration Pramipexole Dihydrochloride 0.5 mg 01/01/17 22:00 01/04/17 22:16 Mirapex - PO 0.5 mg HS [facility] Administration Pramipexole Dihydrochloride 0.25 mg 01/01/17 14:00 01/04/17 09:58 Mirapex - PO 0.25 mg DAILY [facility] Administration Prednisone 20 mg 01/01/17 10:00 01/04/17 09:57 Deltasone - PO 20 mg DAILY [facility] Administration Topiramate 50 mg 01/01/17 12:30 01/04/17 22:16 Topamax - PO 50 mg BID [facility] Administration Valsartan 160 mg 01/01/17 22:00 01/04/17 22:16 Diovan - PO 160 mg HS [facility] Administration Impression 1. MONY 2. sarcoidosis 3. HTN 4. hyperlipidemia 5. cough 6. hx of anemia 7. nephrolithiasis - has passed multiple stones in the past 8. hypernatremia Plan - follow up bronch results - encourage fluid intake - will do stone workup as outpt - will do ckd workup as outpt - discussed with pulmonary - repeat labs in am - cont current meds - will follow Dr Castro
--- NOTE | 2017-01-05 13:01 | PN ---
Physical Exam: SUBJECTIVE: Patient seen and examined in pre op. She has no acute complaints, she is ready for her bronch, not actively coughing. OBJECTIVE: Vital Signs Period Temp Pulse Resp BP Sys/Hicks Pulse Ox Last 24 Hr 98.7 F-98.9 F 80-104 18-20 132-154/73-88 99 PE Neuro: alert, awake, cn 2-12intact Pulm: diminished, no sob CV: s1 s2 rrr no mrg Abd: s nt nd + bs Ext: warm, no le edema Laboratory Results - last 24 hr 01/04/17 01/05/17 01/05/17 17:00 06:00 06:00 WBC 7.8 RBC 4.52 Hgb 13.3 Hct 40.2 MCV 88.9 MCHC 33.2 RDW 13.1 Plt Count 166 MPV 9.0 Neutrophils % Y Lymphocytes % 10.0 D Monocytes % 10.0 Eosinophils % 4.0 D Band Neutrophils 21.0 H Differential Comment Manual diff done Reactive Lymphocytes 5 Platelet Estimate Adequate Sodium 144 Potassium 3.9 Chloride 110 H Carbon Dioxide 26 Anion Gap 8 BUN 21 H Creatinine 1.2 H Creat Clearance w eGFR 47.18 Random Glucose 99 Hemoglobin A1c % Calcium 8.9 Total Bilirubin 0.2 AST 21 D ALT 36 D Alkaline Phosphatase 87 D Total Protein 6.4 Albumin 3.3 L Urine HCG, Qual Negative 01/05/17 06:00 Hemoglobin A1c % 6.9 H D Active Medications Generic Name Dose Route Start Last Admin Trade Name Freq PRN Reason Stop Dose Admin Albuterol/Ipratropium 1 amp 01/01/17 04:28 01/02/17 10:45 Duoneb - NEB 1 amp Q6H PRN Administration SHORTNESS OF BREATH Atorvastatin Calcium 20 mg 01/01/17 22:00 01/04/17 22:16 Lipitor - PO 20 mg HS HIRAM Administration Budesonide/Formoterol Fumarate 2 puff 01/01/17 14:15 01/04/17 22:16 Symbicort 160/4.5mcg - IH 2 puff BID HIRAM Administration Cholecalciferol 1,000 unit 01/01/17 22:00 01/04/17 22:16 Vitamin D3 - PO 1,000 unit HS HIRAM Administration Heparin Sodium (Porcine) 5,000 unit 01/01/17 10:00 01/04/17 22:16 Heparin - SQ 5,000 unit BID HIRAM Administration Levofloxacin 50 mls @ 50 mls/hr 01/02/17 10:00 01/05/17 09:23 Levaquin 250 Mg Premixed Ivpb - IVPB 50 mls/hr DAILY HIRAM Administration Sodium Chloride 1,000 mls @ 75 mls/hr 01/02/17 14:30 01/04/17 15:04 1/2 Normal Saline IV Not Given ASDIR HIRAM Pantoprazole Sodium 40 mg 01/01/17 13:30 01/04/17 09:59 Protonix - PO 40 mg DAILY HIRAM Administration Pramipexole Dihydrochloride 0.5 mg 01/01/17 22:00 01/04/17 22:16 Mirapex - PO 0.5 mg HS HIRAM Administration Pramipexole Dihydrochloride 0.25 mg 01/01/17 14:00 01/04/17 09:58 Mirapex - PO 0.25 mg DAILY HIRAM Administration Prednisone 20 mg 01/01/17 10:00 01/04/17 09:57 Deltasone - PO 20 mg DAILY HIRAM Administration Topiramate 50 mg 01/01/17 12:30 01/04/17 22:16 Topamax - PO 50 mg BID HIRAM Administration Valsartan 160 mg 01/01/17 22:00 01/04/17 22:16 Diovan - PO 160 mg HS HIRAM Administration Imaging: - CT chest shows anterior NAZANIN infiltrate which was originally seen on 05/29/16 and again on 08/28/16; waxing and waning infiltrate of unclear etiology Assessment: 51 year old female PMHx of HTN, HLD, COPD, sarcoidosis, nephrolithiasis, and anemia who was 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 Plan: 1. Chronic cough, recurrent NAZANIN infiltrate - For bronchoscopy today; follow cultures - Prednisone taper - Continue Advair; duonebs PRN - F/u CT chest and PET scan as outpt - pulmonary following 2. MONY with long hx of nephrolithiasis - Cr stable - Stop fluids if tolerating PO after bronch - CKD and stone work up to be done as outpt - D/w Renal 3. Sarcoidosis - Unclear if cough is related - Pulm seeing 4. Hypertension - Continue Diovan 160mg HS 5. Hyperlipidemia - Continue Lipitor 6. DVT PPX: - Sq heparin Visit type - Emergency Visit Emergency Visit: Yes ED Registration Date: 12/31/16 Care time: The patient presented to the Emergency Department on the above date and was hospitalized for further evaluation of their emergent condition. - New Patient This patient is new to me today: Yes Date on this admission: 01/05/17 - Critical Care Critical Care patient: No
--- NOTE | 2017-01-05 13:29 | PROC ---
Procedure Note Procedure: BRONCHOSCOPY NOTE After discussing the risks and benefits of the procedure including bleeding and pneumothorax, informed consent was obtained. Pt was placed under general anesthesia and intubated with size 8.0 ETT. Storz video bronchoscope was passed via the ETT and the airways were examined down to the subsegmental level. The george was sharp, there were no endobronchial lesions noted in either lung. There were 3 subsegments in the left upper lobe aside from the lingula. The anterior and apical subsegments were wedged and lavaged with good return. Samples to be sent for routine culture, AFB and fungal cultures as well as cytology. Bronchoscope then withdrawn and procedure terminated. No immediate complications. Pre-op Dx: recurrent pneumonia Post-op Dx: same Plan: - f/u cultures and cytology - will need outpt f/u of chest imaging and probably PET scan Hans Pabon MD
[2017-01-05] MEDS ORDERED: LACTATED RINGERS SOLUTION 1,000 ML IV SCH (13:30)
--- NOTE | 2017-01-05 13:44 | PN ---
Physical Exam: SUBJECTIVE: Patient seen and examined Patient resting in bed comfortably, nad. No acute events. afebrile and hemodynamically stable. states her cough is improved, white flem. she has been ambulating in hallway w/o sob. She she denies resting sob, lightheadedness, diziness, chest pain, palpitations, nausea, vomiting. denies burning urination , abdominal pain. S/p flex bronch today with NAZANIN lavage OBJECTIVE: Vital Signs Period Temp Pulse Resp BP Sys/Hicks Pulse Ox Last 24 Hr 97.5 F-98.9 F 80-120 18-20 132-154/73-88 97-99 GENERAL: Awake, alert, and fully oriented, in no acute distress. HEAD: Normal with no signs of trauma. EYES: Pupils equal, round and reactive to light, extraocular movements intact, sclera anicteric, conjunctiva clear. EARS, NOSE, THROAT: Moist mucous membranes. NECK: supple without masses. LUNGS: upper lobe crackles HEART: Regular rate and rhythm, normal S1 and S2 ABDOMEN: Soft, nontender, not distended, normoactive bowel sounds MUSCULOSKELETAL: No CVA tenderness. UPPER EXTREMITIES: 2+ pulses, No peripheral edema. LOWER EXTREMITIES: 2+ pulses, warm, No peripheral edema. NEUROLOGICAL: Cranial nerves II-XII grossly intact. PSYCHIATRIC: Cooperative. Good eye contact. Appropriate mood and affect. SKIN: Warm, dry Laboratory Results - last 24 hr 01/04/17 01/05/17 01/05/17 17:00 06:00 06:00 WBC 7.8 RBC 4.52 Hgb 13.3 Hct 40.2 MCV 88.9 MCHC 33.2 RDW 13.1 Plt Count 166 MPV 9.0 Neutrophils % Y Lymphocytes % 10.0 D Monocytes % 10.0 Eosinophils % 4.0 D Band Neutrophils 21.0 H Differential Comment Manual diff done Reactive Lymphocytes 5 Platelet Estimate Adequate Sodium 144 Potassium 3.9 Chloride 110 H Carbon Dioxide 26 Anion Gap 8 BUN 21 H Creatinine 1.2 H Creat Clearance w eGFR 47.18 Random Glucose 99 Hemoglobin A1c % Calcium 8.9 Total Bilirubin 0.2 AST 21 D ALT 36 D Alkaline Phosphatase 87 D Total Protein 6.4 Albumin 3.3 L Urine HCG, Qual Negative 01/05/17 06:00 WBC RBC Hgb Hct MCV MCHC RDW Plt Count MPV Neutrophils % Lymphocytes % Monocytes % Eosinophils % Band Neutrophils Differential Comment Reactive Lymphocytes Platelet Estimate Sodium Potassium Chloride Carbon Dioxide Anion Gap BUN Creatinine Creat Clearance w eGFR Random Glucose Hemoglobin A1c % 6.9 H D Calcium Total Bilirubin AST ALT Alkaline Phosphatase Total Protein Albumin Urine HCG, Qual Active Medications Generic Name Dose Route Start Last Admin Trade Name Freq PRN Reason Stop Dose Admin Albuterol/Ipratropium 1 amp 01/01/17 04:28 01/02/17 10:45 Duoneb - NEB 1 amp Q6H PRN Administration SHORTNESS OF BREATH Atorvastatin Calcium 20 mg 01/01/17 22:00 01/04/17 22:16 Lipitor - PO 20 mg HS HIRAM Administration Budesonide/Formoterol Fumarate 2 puff 01/01/17 14:15 01/04/17 22:16 Symbicort 160/4.5mcg - IH 2 puff BID HIRAM Administration Cholecalciferol 1,000 unit 01/01/17 22:00 01/04/17 22:16 Vitamin D3 - PO 1,000 unit HS HIRAM Administration Fentanyl 25 mcg 01/05/17 13:20 Sublimaze Injection - IVPUSH 01/08/17 13:21 [id number] PRN PAIN Heparin Sodium (Porcine) 5,000 unit 01/01/17 10:00 01/04/17 22:16 Heparin - SQ 5,000 unit BID HIRAM Administration Levofloxacin 50 mls @ 50 mls/hr 01/02/17 10:00 01/05/17 09:23 Levaquin 250 Mg Premixed Ivpb - IVPB 50 mls/hr DAILY HIRAM Administration Sodium Chloride 1,000 mls @ 75 mls/hr 01/02/17 14:30 01/04/17 15:04 1/2 Normal Saline IV Not Given ASDIR HIRAM Lactated Ringer's 1,000 mls @ 125 mls/hr 01/05/17 13:30 Lactated Ringers Solution IV ASDIR HIRAM Pantoprazole Sodium 40 mg 01/01/17 13:30 01/04/17 09:59 Protonix - PO 40 mg DAILY HIRAM Administration Pramipexole Dihydrochloride 0.5 mg 01/01/17 22:00 01/04/17 22:16 Mirapex - PO 0.5 mg HS HIRAM Administration Pramipexole Dihydrochloride 0.25 mg 01/01/17 14:00 01/04/17 09:58 Mirapex - PO 0.25 mg DAILY HIRAM Administration Prednisone 20 mg 01/01/17 10:00 01/04/17 09:57 Deltasone - PO 20 mg DAILY HIRAM Administration Topiramate 50 mg 01/01/17 12:30 01/04/17 22:16 Topamax - PO 50 mg BID HIRAM Administration Valsartan 160 mg 01/01/17 22:00 01/04/17 22:16 Diovan - PO 160 mg HS HIRAM Administration ASSESSMENT/PLAN: Community acquired PNA -CT chest recurrent NAZANIN infiltrate -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 Thank you for this consultative opportunity. Problem List - Problems (1) Acute kidney injury Code(s): N17.9 - ACUTE KIDNEY FAILURE, UNSPECIFIED (2) Cough Code(s): R05 - COUGH (3) GERD (gastroesophageal reflux disease) Code(s): K21.9 - GASTRO-ESOPHAGEAL REFLUX DISEASE WITHOUT ESOPHAGITIS (4) Pneumonia Code(s): J18.9 - PNEUMONIA, UNSPECIFIED ORGANISM (5) Sarcoidosis Code(s): D86.9 - SARCOIDOSIS, UNSPECIFIED (6) Shortness of breath Code(s): R06.02 - SHORTNESS OF BREATH Visit type - Emergency Visit Emergency Visit: Yes ED Registration Date: 12/31/16 Care time: The patient presented to the Emergency Department on the above date and was hospitalized for further evaluation of their emergent condition. - New Patient This patient is new to me today: No - Critical Care Critical Care patient: No - Discharge Referral Referred to [facility] Med P.C.: No
[2017-01-05] MEDS: SODIUM CHLORIDE 0.45% 1,000 ML IV SCH (16:00)
[2017-01-05] MEDS ORDERED: PT OWN MED DRAWER 7, Y5N ONE (16:35)
[2017-01-05] MEDS: PANTOPRAZOLE 40 MG TABLET (FP) PO SCH (16:56)
[2017-01-05] MEDS: PRAMIPEXOLE DIHYDROCHLORIDE 0.25 MG TABLET PO SCH (16:57)
[2017-01-05] MEDS: predniSONE 20 MG TABLET (UD) PO SCH (16:57)
[2017-01-05] MEDS ORDERED: ACETAMINOPHEN 325 MG TABLET (FP) ONE (17:20)
[2017-01-05] MEDS ORDERED: ACETAMINOPHEN 325 MG TABLET (FP) PO PRN ×2 (17:24)
[2017-01-05] MEDS: VALSARTAN 160 MG TABLET (UD) PO SCH (22:22)
[2017-01-05] MEDS: CHOLECALCIFEROL (VITAMIN D3) 1,000 UNIT TABLET (FP) PO SCH (22:22)
[2017-01-05] MEDS: ATORVASTATIN CA 20 MG TABLET (FP) PO SCH (22:23)
[2017-01-05] MEDS: PRAMIPEXOLE DIHYDROCHLORIDE 0.5 MG TABLET PO SCH (22:23)
[2017-01-06 06:54] VITALS: TEMP 98.6
[2017-01-06 08:08] LABS: BASOPHIL 0.3 % (0-2.0); EOSINOPHIL 0.7 % (0-4.5); MCH 29.5 pg (25.7-33.7); MEAN CELL VOLUME 89.3 fl (80-96); MEAN PLT VOLUME 8.6 fl (7.5-11.1); NEUTROPHILS 81.1 % (42.8-82.8); PLATELET COUNT 154 K/MM3 (134-434); RDW 13.1 % (11.6-15.6); WHITE BLOOD COUNT 8.6 K/mm3 (4.0-10.0)
[2017-01-06 08:35] LABS: ALBUMIN 3.4 g/dl (3.4-5.0); BILIRUBIN,TOTAL 0.3 mg/dL (0.2-1.0); CALCIUM 8.9 mg/dL (8.5-10.1); CREATININE 1.2 mg/dL (0.55-1.02); MAGNESIUM 2.4 mg/dL (1.8-2.4); PHOSPHOROUS 3.8 mg/dL (2.5-4.9); TOT PROT 6.4 g/dl (6.4-8.2)
[2017-01-06] MEDS: LEVOFLOXACIN 250 MG IVPB 50 ML IVPB SCH (10:18)
[2017-01-06] MEDS: TOPIRAMATE 25 MG TABLET (FP) PO SCH (10:19)
[2017-01-06] MEDS: predniSONE 20 MG TABLET (UD) PO SCH (10:19)
[2017-01-06] MEDS: PANTOPRAZOLE 40 MG TABLET (FP) PO SCH (10:19)
[2017-01-06] MEDS: BUDESONIDE/FORMETEROL FUMARATE 160/4.5 mcg INHALER IH SCH (10:20)
[2017-01-06] MEDS ORDERED: PT OWN MED DRAWER 7, Y5N ONE (10:21)
[2017-01-06] MEDS: PRAMIPEXOLE DIHYDROCHLORIDE 0.25 MG TABLET PO SCH (10:22)
[2017-01-06] MEDS: HEPARIN NA (PORCINE) 5,000 UNITS/ML 1ML VIAL SQ SCH (10:22)
--- NOTE | 2017-01-06 10:30 | PN ---
Progress Note (short form) - Note Progress Note: Breathing overall better. (+) cough. No hemoptysis. Intake & Output 01/03/17 01/04/17 01/05/17 01/06/17 23:59 23:59 23:59 23:59 Intake Total 3200 2250 1800 1450 Output Total 0 Balance 3200 2250 1800 1450 Last Vital Signs Temp Pulse Resp BP Pulse Ox 98.6 F 86 20 121/65 97 01/06/17 06:53 01/06/17 06:53 01/06/17 06:53 01/06/17 06:53 01/05/17 21:00 Active Medications Acetaminophen (Tylenol -) 650 mg PO Q6H PRN PRN Reason: FEVER OR PAIN Last Admin: 01/05/17 18:00 Dose: 650 mg Albuterol/Ipratropium (Duoneb -) 1 amp NEB Q6H PRN PRN Reason: SHORTNESS OF BREATH Last Admin: 01/02/17 10:45 Dose: 1 amp Atorvastatin Calcium (Lipitor -) 20 mg PO [facility] Last Admin: 01/05/17 22:23 Dose: 20 mg Budesonide/Formoterol Fumarate (Symbicort 160/4.5mcg -) 2 puff IH BID [facility] Last Admin: 01/06/17 10:20 Dose: 2 puff Cholecalciferol (Vitamin D3 -) 1,000 unit PO [facility] Last Admin: 01/05/17 22:22 Dose: 1,000 unit Fentanyl (Sublimaze Injection -) 25 mcg IVPUSH [id number] PRN PRN Reason: PAIN Stop: 01/08/17 13:21 Last Admin: 01/05/17 13:20 Dose: 25 mcg Heparin Sodium (Porcine) (Heparin -) 5,000 unit SQ BID [facility] Last Admin: 01/06/17 10:22 Dose: Not Given Levofloxacin (Levaquin 250 Mg Premixed Ivpb -) 50 mls @ 50 mls/hr IVPB DAILY [facility] Last Admin: 01/06/17 10:18 Dose: 50 mls/hr Sodium Chloride (1/2 Normal Saline) 1,000 mls @ 75 mls/hr IV ASDIR [facility] Last Admin: 01/05/17 16:00 Dose: 75 mls/hr Pantoprazole Sodium (Protonix -) 40 mg PO DAILY [facility] Last Admin: 01/06/17 10:19 Dose: 40 mg Pramipexole Dihydrochloride (Mirapex -) 0.5 mg PO HS [facility] Last Admin: 01/05/17 22:23 Dose: 0.5 mg Pramipexole Dihydrochloride (Mirapex -) 0.25 mg PO DAILY [facility] Last Admin: 01/06/17 10:22 Dose: 0.25 mg Prednisone (Deltasone -) 20 mg PO DAILY [facility] Last Admin: 01/06/17 10:19 Dose: 20 mg Topiramate (Topamax -) 50 mg PO BID [facility] Last Admin: 01/06/17 10:19 Dose: 50 mg Valsartan (Diovan -) 160 mg PO HS [facility] Last Admin: 01/05/17 22:22 Dose: 160 mg Constitutional: Yes: Well Nourished, NAD Eyes: Yes: WNL HENT: Yes: WNL Neck: Yes: WNL Cardiovascular: Yes: Regular Rate and Rhythm, S1, S2 Respiratory: Yes: Diminished, no wheeze Gastrointestinal: Yes: Normal Bowel Sounds, Soft Extremities: Yes: WNL Edema: No Labs: Laboratory Results - last 24 hr 01/06/17 01/06/17 06:00 06:00 WBC 8.6 RBC 4.54 Hgb 13.4 Hct 40.6 MCV 89.3 MCHC 33.0 RDW 13.1 Plt Count 154 MPV 8.6 Neutrophils % 81.1 Lymphocytes % 9.6 Monocytes % 8.3 Eosinophils % 0.7 D Basophils % 0.3 Sodium 143 Potassium 3.9 Chloride 110 H Carbon Dioxide 24 Anion Gap 9 BUN 20 H Creatinine 1.2 H Creat Clearance w eGFR 47.18 Random Glucose 113 H Calcium 8.9 Phosphorus 3.8 D Magnesium 2.4 Total Bilirubin 0.3 D AST 32 D ALT 67 D Alkaline Phosphatase 88 Total Protein 6.4 Albumin 3.4 Problem List - Problems (1) Cough Code(s): R05 - COUGH (2) Sarcoidosis Code(s): D86.9 - SARCOIDOSIS, UNSPECIFIED (3) Shortness of breath Code(s): R06.02 - SHORTNESS OF BREATH (4) Acute kidney injury Code(s): N17.9 - ACUTE KIDNEY FAILURE, UNSPECIFIED (5) GERD (gastroesophageal reflux disease) Code(s): K21.9 - GASTRO-ESOPHAGEAL REFLUX DISEASE WITHOUT ESOPHAGITIS (6) Pneumonia Code(s): J18.9 - PNEUMONIA, UNSPECIFIED ORGANISM Assessment/Plan IMP RECURRENT NAZANIN INFILTRATE SARCOIDOSIS COUGH ACUTE KIDNEY INJURY IMPROVING GERD PLAN PREDNISONE INHALED BRONCHODILATORS ANTIBIOTICS NO PULMONARY CONTRAINDICATION FOR D/C Dr Garnica
--- NOTE | 2017-01-06 12:04 | DS ---
Physical Exam: SUBJECTIVE: Patient seen and examined, she has some post op throat pain. Residual sputum this AM with pulm, sent for cytology. OBJECTIVE: Vital Signs Period Temp Pulse Resp BP Sys/Hicks Pulse Ox Last 24 Hr 97.5 F-98.9 F 78-120 20-24 109-149/61-81 97-98 PE Neuro: alert, awake, cn 2-12intact Pulm: CTAB, no wheezing, intermittent cough CV: s1 s2 rrr no mrg Abd: s nt nd + bs Ext: warm, no le edema Laboratory Results - last 24 hr 01/06/17 01/06/17 06:00 06:00 WBC 8.6 RBC 4.54 Hgb 13.4 Hct 40.6 MCV 89.3 MCHC 33.0 RDW 13.1 Plt Count 154 MPV 8.6 Neutrophils % 81.1 Lymphocytes % 9.6 Monocytes % 8.3 Eosinophils % 0.7 D Basophils % 0.3 Sodium 143 Potassium 3.9 Chloride 110 H Carbon Dioxide 24 Anion Gap 9 BUN 20 H Creatinine 1.2 H Creat Clearance w eGFR 47.18 Random Glucose 113 H Calcium 8.9 Phosphorus 3.8 D Magnesium 2.4 Total Bilirubin 0.3 D AST 32 D ALT 67 D Alkaline Phosphatase 88 Total Protein 6.4 Albumin 3.4 HOSPITAL COURSE: Date of Admission:12/31/16 Date of Discharge: 01/06/17 Minutes to complete discharge: 35 Discharge Summary Reason For Visit: SOB Current Active Problems Acute kidney injury (Acute) Cough (Acute) GERD (gastroesophageal reflux disease) (Acute) Pneumonia (Acute) Sarcoidosis (Acute) Shortness of breath (Acute) Hospital Course: Initial Hospital Course: Briefly, this 51 year old female with significant past medical history of hypertension, hyperlipidemia, sarcoidosis 20 years , COPD, and anemia presented with persistent cough x2 years. Cough worsened over summer after being treated with abx in 2016, there was some improvement. In October 2016 cough returned, with increased sputum production, started on levaquin without improvement in cough. Symptoms resolved with steroids, however, upon tapering cough as reoccurred. She has been unable to wean steroids under 10mg for the last 5 months. 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 Patient was diagnosed with sarcoidosis 20 years ago. 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 Plan: 1. Chronic cough, recurrent NAZANIN infiltrate - For bronchoscopy 01/05/17 - Follow cultures with pulm next week in office - Sputum for cytology sent - Prednisone 20mg daily; taper per pulm - Resume Advair - F/u CT chest and PET scan as outpt 2. MONY on CKD and hx of nephrolithiasis - Cr stable - CKD and stone work up to be done as outpt 3. 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 Hypertension - Resume home benicar 20mg hs 5. Hyperlipidemia - Continue Lipitor 20mg daily Dispo: - Home with above meds and pulm and renal follow up as listed - Pt aware and agrees to above plan Condition: Stable - Instructions Diet, Activity, Other Instructions: Please return to the ED for any new, persistent, or worsening symptoms. Follow up with your PCP in 1 week. Resume home medications as directed on discharge list Make appt to see Dr. Pabon next week to follow up results from bronchoscopy. Follow up with Dr. Castro for continued work up of your kidney disease and scarcoid tests, he is expecting you, his office days are thursday Referrals: Carlton Brown MD [Staff Physician] - Delmis Wang MD [Primary Care Provider] - Amador Castro MD [Staff Physician] - Hans Pabon MD, MD [Staff Physician] - 1 Week (Followup next week for results ) Disposition: HOME - Home Medications Comprehensive Discharge Medication List: Ambulatory Orders Olmesartan Medoxomil [Benicar -] 20 mg PO HS 05/03/13 Atorvastatin Ca [Lipitor] 20 mg PO HS 01/08/15 Cholecalciferol (Vitamin D3) [Vitamin D] 1,000 unit PO HS 08/20/15 Advair 500Mcg/50Mcg - 1 inhaler IH BID 01/01/17 Mirapex 0.25 mg PO DAILY 01/01/17 Mirapex 0.5 mg PO HS 01/01/17 Prednisone 20 mg PO DAILY 01/01/17 Topiramate 50 mg PO BID 01/01/17 This patient is new to me today: No Emergency Visit: Yes ED Registration Date: 12/31/16 Care time: The patient presented to the Emergency Department on the above date and was hospitalized for further evaluation of their emergent condition. Critical Care patient: No - Discharge Referral Referred to [facility] Med P.C.: No
[2017-01-06 12:40] VITALS: BP 143/78; PULSE 90
--- NOTE | 2017-01-06 13:39 | PATH ---
Cytology Non-Gynecological Report Patient Name: SUSANA STUART Med. Rec. #: [id number] /Age/Gender: 1965 (Age: 51) / F Account: [id number] Location: [facility] MED/SURG Taken: 01/05/2017 Received: 01/05/2017 Reported: 01/06/2017 Physicians: Sonu Martinez ACNP Specimen(s) Received BRONCHIAL WASHINGS Clinical History Pneumonia Final Diagnosis LUNG, LEFT UPPER LOBE, BRONCHIAL WASHING: SATISFACTORY FOR EVALUATION. NO MALIGNANT CELLS IDENTIFIED. REACTIVE BRONCHIAL CELLS, MACROPHAGES AND ACUTE INFLAMMATION. Comment: Special stains for acid-fast and fungal organisms are pending; results will be reported in an addendum. Electronically Signed Sb Bradford M.D. Addendum Reported: 01/07/2017 Addendum Diagnosis No acid fast bacilli are identified with AFB stain. No fungal organisms are identified with GMS and stain. Comment: Correlations with microbiology and studies are suggested. bS Bradford M.D. Gross Description Received is 50 cc of clear fluid fresh. One cytofunnel slide and one cell block are made.
--- NOTE | 2017-01-07 15:05 | PATH ---
Cytology Non-Gynecological Report Patient Name: SUSANA STUART Med. Rec. #: [id number] /Age/Gender: 1965 (Age: 51) / F Account: [id number] Location: [facility] MED/SURG Taken: 01/06/2017 Received: 01/06/2017 Reported: 01/07/2017 Physicians: Sonu Cordova ACNP Specimen(s) Received SPUTUM Clinical History Pneumonia Final Diagnosis SPUTUM FOR CYTOLOGY: EVALUATION IS LIMITED BY A LOW NUMBER FOVEOLAR MACROPHAGES. SQUAMOUS CELL AND ACUTE INFLAMMATION, COLONIZATION WITH POLYMORPHOUS BACTERIAL ORGANISMS. Electronically Signed Sb Bradford M.D. Gross Description Received is whitish in color fluid. One cytofunnel slide and one cell block are made.
== END 2017-01-06 14:05 | disposition home or self-care (01) | DRG 194 ==
LOC: JER 17:24 → JERBED 20:15 → UNDOADMIN 21:17 → J8W 01-01 02:25
PROVIDERS: ADMIT Internal Medicine; ATTEND Nurse Practitioner Acute Care
PROC: 0BJ08ZZ Inspection of Tracheobronchial Tree, Via Natural or Artificial Opening Endoscopic (ICD-10-PCS; principal; 2017-01-05 12:00)
DX: J18.9 Pneumonia, unspecified organism (principal); N17.9 Acute kidney failure, unspecified; E87.0 Hyperosmolality and hypernatremia; D86.9 Sarcoidosis, unspecified; R05 Cough; J44.9 Chronic obstructive pulmonary disease, unspecified; D64.9 Anemia, unspecified; E78.5 Hyperlipidemia, unspecified; Z87.442 Personal history of urinary calculi; K21.9 Gastro-esophageal reflux disease without esophagitis; N28.1 Cyst of kidney, acquired; E86.0 Dehydration; I12.9 Hypertensive chronic kidney disease with stage 1 through stage 4 chronic kidney disease, or unspecified chronic kidney disease; N18.9 Chronic kidney disease, unspecified
CPT/HCPCS: 36415; 71250-TC; 76775-TC; 76856-TC; 80048; 80053; 81003; 82436; 82570; 83036; 83735; 84100; 84133; 84300; 84703; 85025; 87070; 87086; 87205; 87254; 87804; 87899; 88104; 88108; 88305-TC; 93005; 93010; 94640; 94760; 99281-25; J1644

== ENCOUNTER → 2017-04-04 | Emergency (ER) | payer OTHER, BC ==
[~2017-04-04] MED LIST: IBUPROFEN 600 MG TABLET (FP) PO ONE
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
[2017-04-04 18:52] VITALS: BMI 33.0
[2017-04-04 20:16] VITALS: BP 163/97; PULSE 104; TEMP 99
== END | disposition home or self-care (01) ==
LOC: JER 18:13
DX: S80.12XA Contusion of left lower leg, initial encounter (principal); S80.212A Abrasion, left knee, initial encounter; V43.62XA Car passenger injured in collision with other type car in traffic accident, initial encounter; Y92.414 Local residential or business street as the place of occurrence of the external cause; W22.12XA Striking against or struck by front passenger side automobile airbag, initial encounter; Y93.89 Activity, other specified; Y99.8 Other external cause status
CPT/HCPCS: 73562-TC-LT; 73562-TC-RT; 73590-TC-LT; 73590-TC-RT; 99281-25

== ENCOUNTER 2019-11-24 06:49 | Day surgery (SDC) | payer BC ==
[2019-11-23 14:26] VITALS: BMI 33.3
[~2019-11-24 06:49] MED LIST changes: +BUPIVACAINE HCL/PF 0.5% (5MG/ML) 10 ML VIAL IJ ONE; -IBUPROFEN 600 MG TABLET (FP) PO ONE; +LIDOCAINE 1% P/F 10 MG/ML VIAL INF ONE; +ceFAZolin SODIUM 1 GM VIAL IVPB ONE
--- NOTE | 2019-11-24 07:53 | HP ---
Satellite [facility] - Chief Complaint Chief Complaint: right thumb pain - Past Medical History Allergies/Adverse Reactions: Allergies Allergy/AdvReac Type Severity Reaction Status Date / Time No Known Drug Allergies Allergy Verified 11/24/19 07:10 Cardiovascular: Yes: HTN, Hyperlipdemia Pulmonary: Yes: Other (sarcoidosis) ...LMP: 02/01/12 - Current Medications Current Medications: Home Medications Medication Instructions Recorded Olmesartan Medoxomil [Benicar -] 20 mg PO HS 05/03/13 Atorvastatin Ca [Lipitor] 20 mg PO HS 01/08/15 Cholecalciferol (Vitamin D3) 1,000 unit PO HS 08/20/15 [Vitamin D] Metformin HCl [Glucophage] 500 mg PO HS 11/23/19 Rizatriptan Benzoate [Rizatriptan] 5 mg PO PRN PRN 11/23/19 Satellite Physical Exam - Physical Examination Vital Signs: Vital Signs Period Temp Pulse Resp BP Sys/Hicks Pulse Ox Last 24 Hr 98.5 F 86 16 131/76 99 General Appearance: Well Nourished, Well Developed, Alert & Oriented x3 ENT: Clear Lung: Normal air movement Extremities: Other (right thumb- + ttp a1 fátima, + locking, nvi) Neurological: Intact, Alert, Oriented Satellite Impression/Plan - Impression/Plan Impression: right trigger thumb Operative Procedure: right thumb trigger release Date to be Performed: 11/24/19
[2019-11-24] MEDS ORDERED: LIDOCAINE HCL 1%, 10 MG/ML (20ML VIAL) ONE (08:03)
[2019-11-24] MEDS ORDERED: MIDAZOLAM HCL 2 MG/2 ML SINGLE DOSE VIAL ONE (09:02)
[2019-11-24] MEDS ORDERED: PROPOFOL 20 ML ONE ×2 (09:02→09:37)
[2019-11-24] MEDS ORDERED: ceFAZolin SODIUM 1 GM VIAL ONE (09:02)
[2019-11-24] MEDS ORDERED: ceFAZolin SODIUM 1 GM VIAL IVPB ONE (09:26)
[2019-11-24] MEDS ORDERED: LIDOCAINE 1% P/F 10 MG/ML VIAL INF ONE (09:39)
[2019-11-24] MEDS ORDERED: BUPIVACAINE HCL/PF 0.5% (5MG/ML) 10 ML VIAL IJ ONE (09:39)
--- NOTE | 2019-11-24 10:06 | OP ---
Operative Note - Note: Operative Date: 11/24/19 Pre-Operative Diagnosis: right trigger thumb Operation: right trigger thumb release, tendon sheath excision Post-Operative Diagnosis: Same as Pre-op Surgeon: Timi Marshall Anesthesiologist/CLIENT RETENTION SPECIALIST: Shaun Rangel Anesthesia: Local, MAC Specimens Removed: tendon sheath Estimated Blood Loss (mls): 0 Drains, Volume Out (mls): 0 Blood Volume Replaced (mls): 0 Fluid Volume Replaced (mls): 500 Operative Report Dictated: Yes
[2019-11-24] MEDS ORDERED: ONDANSETRON 4 MG/2 ML VIAL IVPUSH PRN (10:26)
[2019-11-24] MEDS ORDERED: oxyCODONE HCL 5 MG TABLET PO PRN (10:26)
[2019-11-24] MEDS ORDERED: LACTATED RINGERS SOLUTION 1,000 ML IV SCH (10:30)
[2019-11-24 10:32] VITALS: TEMP 98.2
[2019-11-24 12:18] VITALS: BP 103/62; PULSE 84
--- NOTE | 2019-11-24 16:04 | SPEC ---
DATE OF OPERATION: 11/24/2019 PREOPERATIVE DIAGNOSIS: Recurrent, painful, right trigger thumb. POSTOPERATIVE DIAGNOSIS: Recurrent, painful, right trigger thumb. PROCEDURE: Right trigger thumb release and tendon sheath excision. SURGEON: Delia Nelson MD CNC MACHINE SETTER: None. ANESTHESIA: Shaun Rangel CRNA, MAC anesthesia, local injection 15 mL 0.5% Marcaine, 1% lidocaine mix. DRAINS: None. COMPLICATIONS: None. SPECIMEN: Tendon sheath, right thumb. BLOOD LOSS: None. BLOOD GIVEN: None. FLUID REPLACEMENT: 500 mL Plasma-Lyte. INDICATIONS: This patient is a 54-year-old female with a preoperative diagnosis of severely painful, recurrent right trigger thumb. After understanding the potential risks, complications, alternatives, benefits to surgery versus nonsurgical treatment, the patient elected to undergo this procedure. PROCEDURE: The patient was brought to the operating room, IV was placed, IV sedation was given; 1 g of intravenous Ancef given. A tourniquet was applied to the right upper arm and the right upper extremity was prepped and draped in sterile fashion. The entire case was done under 3.8 loupe magnification. A marking pen was utilized to velasquez out a longitudinal incision in an already existing skin crease at the base of the right thumb. Then 10 mL of 0.5% Marcaine mixed with 1% lidocaine was injected in and around the incision. The right upper extremity was elevated, exsanguinated with an Esmarch bandage and the tourniquet inflated to 250 mmHg. A No. 15 scalpel blade was utilized to cut down through the skin. Subcutaneous hemostasis was achieved with the bipolar cautery. Additional dissection was done with Littler scissors until I was able to directly visualize the A1 fátima sheath in its entirety. Self-retaining retractors were placed into the wound. A [place] elevator was used to free up the tissue on the radial side, the ulnar side distally and proximally under better visualization of A1 fátima sheath. Next, using a fresh No. 15 scalpel blade, I excised the central one-third of the A1 fátima sheath and passed it off the field as specimen, tendon sheath, right thumb. I then completed the release, both distally and proximally, and brought the FDS and FDP tendons out through the wound with a Ragnell retractor. There were no abnormal points of compression. I was able to move the right thumb without the tendons bunching up at all. The area was then copiously irrigated and washed out. I then checked one more time to make sure there were no abnormal points of compression. None were seen and therefore closure was begun. One stitch using 4-0 Vicryl was used in the deep dermal layer. Skin was reapproximated with 4-0 nylon sutures in a horizontal mattress fashion. The area was then washed and dried, covered with Xeroform gauze, sterile 4 x 4s, fluffs between the fingers, Webril and Coban. The tourniquet was taken down after a total tourniquet time of 20 minutes. There were no complications during the case. The patient tolerated the procedure well and was brought to the Ambulatory Recovery Room in stable condition. DELIA NELSON M.D. [id number]
--- NOTE | 2019-11-25 13:53 | PATH ---
Surgical Pathology Report Patient Name: SUSANA STUART [facility]. Rec. #: [id number] /Age/Gender: 1965 (Age: 54) / F Account: [id number] Location: [facility] Taken: 11/24/2019 Received: 11/24/2019 Reported: 11/25/2019 Physicians: Timi Marshall M.D. Specimen(s) Received TENOSYNOVIUM Clinical History Right trigger thumb Final Diagnosis TENOSYNOVIUM, THUMB, RIGHT, TRIGGER FINGER RELEASE: BENIGN DENSE FIBROCONNECTIVE TISSUE Electronically Signed Catherine Carrera M.D. Gross Description Received in formalin labeled "tenosynovium," is a 0.7 x 0.2 x 0.1 cm aggregate of foreman soft tissue fragments. The specimen is submitted in toto in one cassette. /11/24/2019 saudi/11/24/2019
== END 2019-11-24 12:50 | disposition home or self-care (01) ==
LOC: JASU-SURG 06:49
PROVIDERS: ATTEND Orthopaedic Surgery
PROC: 0LN70ZZ Release Right Hand Tendon, Open Approach (ICD-10-PCS; principal; 2019-11-24 09:39)
DX: M65.311 Trigger thumb, right thumb (principal)
CPT/HCPCS: 82962; 88304-TC

== ENCOUNTER 2020-05-28 16:18 | Inpatient (IN) | payer BC ==
--- NOTE | 2020-05-28 16:47 | PDOC ---
History of Present Illness - General Chief Complaint: Pain, Acute Stated Complaint: LEFT FLANK PAIN Time Seen by Provider: 05/28/20 16:47 - History of Present Illness Initial Comments: 05/28/20 16:48 55 year old female with significant past medical history of kidney stones, hypertension, hyperlipidemia, sarcoidosis, COPD, and anemia who presents to the ED with kidney stone pain. Patient endorses N/V this morning. Left plank pain started out yesterday, tramadol didn't even help. She has 100s of kidney stone in the past; this felt exactly like kidney stones, and it's stuck in the kidney, and it's pointy according to her. Her urologist is Dr. Lancaster. she denies hematuria. Last week, her pain manifested by back pain, but slowly building up . She did well with torado shot; past imaging consisted of ultrasound and CT scan. According to her, stones ranges from 5-7 mm, usually she would pass them at home, unless it's super big. then proceed to lithotripsin, and Stent removal. The patient denies fever, chills, diaphoresis, chest pain, lightheadedness, and palpitations. The patient denies abdominal pain, and diarrhea. Allergies: NKDA Social History: No alcohol, tobacco, or drug use reported. Past Surgical History: cholecystectomy, lung biopsy, knee arthroscopy , bilat stents on kidneys. PCP: Dr. Delmis Wang Glass Polisher: Dr. Carlton Brown Neprologist: Tonny. ROS GENERAL/CONSTITUTIONAL: No fever or chills. No weakness. HEAD, EYES, EARS, NOSE AND THROAT: No change in vision. No ear pain or discharge. No sore throat. CARDIOVASCULAR: No chest pain or shortness of breath RESPIRATORY: No cough, wheezing, or hemoptysis. GASTROINTESTINAL: No nausea, vomiting, diarrhea or constipation. GENITOURINARY: No dysuria, frequency, or change in urination. MUSCULOSKELETAL: No joint or muscle swelling or pain. No neck or back pain. SKIN: No rash NEUROLOGIC: No headache, vertigo, loss of consciousness, or change in strength/sensation. ENDOCRINE: No increased thirst. No abnormal weight change HEMATOLOGIC/LYMPHATIC: No anemia, easy bleeding, or history of blood clots. ALLERGIC/IMMUNOLOGIC: No hives or skin allergy. PE GENERAL: Awake, alert, and fully oriented, in mild acute distress; uncomfortable. HEAD: No signs of trauma, normocephalic, atraumatic EYES: PERRLA, EOMI, sclera anicteric, conjunctiva clear ENT: Auricles normal inspection, hearing grossly normal, nares patent, oropharynx clear without exudates. Moist mucosa NECK: Normal ROM, supple, no lymphadenopathy, JVD, or masses LUNGS: No distress, speaks full sentences, clear to auscultation bilaterally HEART: Regular rate and rhythm, normal S1 and S2, no murmurs, rubs or gallops, peripheral pulses normal and equal bilaterally. ABDOMEN: Soft, nontender, normoactive bowel sounds. No guarding, no rebound. No masses EXTREMITIES : Normal inspection, Normal range of motion, no edema. No clubbing or cyanosis. NEUROLOGICAL: Cranial nerves II through XII grossly intact. Normal speech, normal gait, no focal sensorimotor deficits SKIN: Warm, Dry, normal turgor, no rashes or lesions noted Past History - Medical History Allergies/Adverse Reactions: Allergies Allergy/AdvReac Type Severity Reaction Status Date / Time No Known Drug Allergies Allergy Verified 05/28/20 16:19 Home Medications: Ambulatory Orders Olmesartan Medoxomil [Benicar -] 20 mg PO HS 05/03/13 Atorvastatin Ca [Lipitor] 20 mg PO HS 01/08/15 Cholecalciferol (Vitamin D3) [Vitamin D3] 1,000 unit PO HS 08/20/15 Metformin HCl [Glucophage] 500 mg PO HS 11/23/19 Rizatriptan Benzoate [Rizatriptan] 5 mg PO PRN PRN 11/23/19 Hydrocodone/Acetaminophen [Hydrocodone-Acetamin 5-325 mg] 1 each PO Q6H #20 tablet MDD 4 11/24/19 Anemia: Yes (H/O IRON DEF) Asthma: No Cancer: No Cardiac Disorders: No CVA: No COPD: No CHF: No Dementia: No Diabetes: Yes GI Disorders: No Disorders: No HTN: Yes Hypercholesterolemia: Yes Kidney Stones: Yes Liver Disease: No Seizures: No Thyroid Disease: No - Surgical History Abdominal Surgery: (TUBAL LIGATION) Appendectomy: No Cardiac Surgery: No Cholecystectomy: Yes Lung Surgery: Yes (BIOPSY) Neurologic Surgery: No Orthopedic Surgery: Yes (KNEE ARTHROSCOPY) - Immunization History Immunization Up to Date: Yes - Psycho-Social/Smoking History Smoking Status: No Smoking History: Never smoked Have you smoked in the past 12 months: No Number of Cigarettes Smoked Daily: 0 - Substance Abuse Hx (Audit-C & DAST Scrn) How often the patient has a drink containing alcohol: Never Score: In Men: 4 or > Positive; In Women: 3 or > Positive: 0 Screen Result (Pos requires Nsg. Audit-10AR): Negative In the last yr the pt used illegal drug/Rx for NonMed reason: No Score: Yes response is considered Positive: 0 Screen Result (Positive result requires Nsg. DAST-10): Negative *Physical Exam - Vital Signs Last Vital Signs Temp Pulse Resp BP Pulse Ox 98.4 F 106 H 17 141/83 100 05/28/20 16:19 05/28/20 16:19 05/28/20 16:19 05/28/20 16:19 05/28/20 16:19 ED Treatment Course - LABORATORY CBC & Chemistry Diagram: 05/28/20 17:25 05/28/20 17:25 Medical Decision Making - Medical Decision Making 05/28/20 18:51 EKG showed normal sinus rhtyhm, vent rate 87, left axis deviation, and Right BBB. no other changes suggest ischemic. Pain control: torado 1L fluid Lab showed normal CBC, CMP showed elevated BUN/Cr. UA showed infection suggesting UTI. Gave Ceftriaxone. CT scan showed obstructed kidney stone at [facility], consulted Urologist Dr. Tonny ESPINOSA sent to nancy Lancaster . Dr. Lancaster called, wanted NPO, COVID , EKG, Chest Xray. Waiting for tomorrow lithotripsin. Discharge - Discharge Information Problems reviewed: Yes Clinical Impression/Diagnosis: Renal colic on left side, UTI (urinary tract infection), bacterial Condition: Improved - Admission Yes - Follow up/Referral Referrals: Delmis Wang MD [Primary Care Provider] - - Patient Discharge Instructions - Post Discharge Activity
[2020-05-28] MEDS ORDERED: SODIUM CHLORIDE 0.9% 500 ML INFUS.BAG IV ONE (17:18)
[2020-05-28] MEDS ORDERED: KETOROLAC TROMETHAMINE 15 MG/ML VIAL IVPUSH ONE (17:18)
[2020-05-28] MEDS ORDERED: KETOROLAC TROMETHAMINE 15 MG/ML VIAL ONE (17:33)
[2020-05-28 18:04] LABS: HEMATOCRIT 38.1 % (32.4-45.2); HEMOGLOBIN 12.7 GM/dL (10.7-15.3); MCH 29.6 pg (25.7-33.7); MCHC 33.4 g/dl (32.0-36.0); MEAN CELL VOLUME 88.6 fl (80-96); MEAN PLT VOLUME 8.6 fl (7.5-11.1); PLATELET COUNT 154 K/MM3 (134-434); RDW 12.7 % (11.6-15.6); WHITE BLOOD COUNT 7.7 K/mm3 (4.0-10.0)
[2020-05-28 18:28] LABS: ALBUMIN 3.8 g/dl (3.4-5.0); BILIRUBIN,TOTAL 0.2 mg/dL (0.2-1); BLOOD UREA NITROGEN 19.5 mg/dL (7-18); CALCIUM 9.4 mg/dL (8.5-10.1); CREATININE 1.5 mg/dL (0.55-1.3); POTASSIUM 4.1 mmol/L (3.5-5.1); TOT PROT 7.3 g/dl (6.4-8.2)
[2020-05-28 18:37] LABS: EPI CELLS 10 /uL (0-25.1); HYALINE CASTS 1 /uL (0-3.1); URINE APPEARANCE CLOUDY; URINE BACTERIA 441 /uL (0-1359); URINE BILIRUBIN NEGATIVE (NEGATIVE); URINE COLOR YELLOW; URINE GLUCOSE (UA) NEGATIVE (NEGATIVE); URINE KETONE NEGATIVE (NEGATIVE); URINE LEUK ESTERASE 1+ (NEGATIVE); URINE NITRITE NEGATIVE (NEGATIVE); URINE PROTEIN TRACE (NEGATIVE); URINE UROBILINOGEN 0.2 mg/dL (0.2-1.0); URINE WBC 40 /uL (0-25.8)
[2020-05-28] MEDS ORDERED: CEFTRIAXONE 1 GM/50 ML BAG ONE (19:17)
[2020-05-28 19:43] LABS: URINE CRYSTALS URIC ACID /hpf; URINE RBC 523.5 /uL (0-23.9)
[2020-05-28] MEDS ORDERED: ENOXAPARIN NA (PORCINE) 40 MG/0.4 ML DISP.SYRIN SQ ONE (21:20)
[2020-05-28] MEDS ORDERED: INSULIN SLIDING SCALE (NOVOLOG) 1 VIAL SQ SCH (21:30)
[2020-05-28] MEDS ORDERED: LACTATED RINGERS SOLUTION 1,000 ML/1,000 ML INFUS.BAG IV SCH (21:30)
[2020-05-28] MEDS ORDERED: ATORVASTATIN CA 20 MG TABLET (FP) ONE (21:50)
--- NOTE | 2020-05-28 21:57 | PN ---
Teaching Attending Note Name of Resident: Linjuan Vianca ATTENDING PHYSICIAN STATEMENT I saw and evaluated the patient. I reviewed the resident's note and discussed the case with the resident. I agree with the resident's findings and plan as documented. SUBJECTIVE: 55y/o F with significant past medical history of kidney stones, hypertension, hyperlipidemia, sarcoidosis, COPD, and anemia presented with left flank pain which started yesterday. Associated symptoms were nausea and non bloody vomiting. History of similar episodes in the past. ROS: negative except above OBJECTIVE: GENERAL: Awake, alert, and fully oriented, not in distress HEAD: Normal with no signs of trauma. EYES: Pupils equal, round and reactive to light, extraocular movements intact, sclera anicteric, conjunctiva clear. EARS, NOSE, THROAT: Oropharynx clear without exudates. Moist mucous membranes. NECK: No JVD, or masses. LUNGS: Breath sounds equal, clear to auscultation bilaterally. No wheezes, and no crackles. No accessory muscle use. HEART: RRR normal S1 and S2 without murmur, rub or gallop. ABDOMEN: Soft, not distended, tender on left flank, Left CVA tenderness MUSCULOSKELETAL: Normal range of motion at all joints. No CVA tenderness. UPPER EXTREMITIES: 2+ pulses, warm, well-perfused. No peripheral edema. LOWER EXTREMITIES: 2+ pulses, warm, well-perfused. No calf tenderness. No peripheral edema. NEUROLOGICAL: Cranial nerves II-XII intact. Normal speech. PSYCHIATRIC: Cooperative. Good eye contact. Appropriate mood and affect. SKIN: Warm, dry, normal turgor, no rashes or lesions noted. Last Vital Signs Temp Pulse Resp BP Pulse Ox 98.4 F 79 18 132/79 100 05/28/20 16:19 05/28/20 22:22 05/28/20 22:22 05/28/20 22:22 05/28/20 22:22 Laboratory Results - last 24 hr 05/28/20 05/28/20 05/28/20 17:25 17:25 17:30 WBC 7.7 RBC 4.30 Hgb 12.7 Hct 38.1 MCV 88.6 MCH 29.6 MCHC 33.4 RDW 12.7 Plt Count 154 MPV 8.6 Sodium 143 Potassium 4.1 Chloride 111 H Carbon Dioxide 23 Anion Gap 9 BUN 19.5 H Creatinine 1.5 H Est GFR (CKD-EPI)AfAm 44.67 Est GFR (CKD-EPI)NonAf 38.54 POC Glucometer Random Glucose 145 H Calcium 9.4 Total Bilirubin 0.2 AST 20 ALT 28 Alkaline Phosphatase 128 H Total Protein 7.3 Albumin 3.8 Urine Color Yellow Urine Appearance Cloudy Urine pH 5.0 Ur Specific Huddy 1.027 Urine Protein Trace Urine Glucose (UA) Negative Urine Ketones Negative Urine Blood 3+ H Urine Nitrite Negative Urine Bilirubin Negative Urine Urobilinogen 0.2 Ur Leukocyte Esterase 1+ H Urine WBC (Auto) 40 Urine RBC (Auto) 523.5 Urine Casts (Auto) 1 U Epithel Cells (Auto) 10 Urine Crystals (Auto) Uric acid Urine Bacteria (Auto) 441 05/28/20 21:56 WBC RBC Hgb Hct MCV MCH MCHC RDW Plt Count MPV Sodium Potassium Chloride Carbon Dioxide Anion Gap BUN Creatinine Est GFR (CKD-EPI)AfAm Est GFR (CKD-EPI)NonAf POC Glucometer 117 Random Glucose Calcium Total Bilirubin AST ALT Alkaline Phosphatase Total Protein Albumin Urine Color Urine Appearance Urine pH Ur Specific Huddy Urine Protein Urine Glucose (UA) Urine Ketones Urine Blood Urine Nitrite Urine Bilirubin Urine Urobilinogen Ur Leukocyte Esterase Urine WBC (Auto) Urine RBC (Auto) Urine Casts (Auto) U Epithel Cells (Auto) Urine Crystals (Auto) Urine Bacteria (Auto) CT scan showed obstructed kidney stone at [facility] CMP showed elevated BUN/Cr. UA showed infection suggesting UTI ASSESSMENT AND PLAN: UTI from obstructed kidney stone MONY obstructed kidney stone at [facility] history of kidney stones, hypertension, hyperlipidemia, sarcoidosis, COPD, and anemia Admit to floor IV hydration NPO from midnight urology on board IV ceftriaxone 2 gram Analgesia PRN Urine culture, blood culture resume home meds DVT ppx
[2020-05-28] MEDS ORDERED: ATORVASTATIN CA 80 MG TABLET (FP) PO SCH (22:00)
[2020-05-28] MEDS ORDERED: HEPARIN NA (PORCINE) 5,000 UNITS/ML 1ML VIAL SQ SCH (23:15)
--- NOTE | 2020-05-28 23:32 | HP ---
PCP: Dr. Delmis Wood HISTORY OF PRESENT ILLNESS: Pt is a 55yo female who is being managed for multiple b/l kidney stones, now presenting with Lt. flank pain of x 1day, radiating to the back, now relieved by torado shot but was not responsive to tramadol taken at home. Pt. denies hematuria, dysuria, frequency and fever. Had similar pain last week. Pt says she has had 100+ stones in the past. Says she has passed several stones at home but bigger stones usually require lithotripsy or stent removal. ROS: Pt. denies abdominal pain, diarrhea, shortness of breath,cough, palpitation, chest pain,headache,dizziness, chills, diaphoresis. ER course was notable for: Vitals: BP: 152/79mmHg ND: 90/M RR: 22/M O2 sat room air: 100% - LABORATORY CHEMISTRY: Cl: 111mEq/l-elevated BUN: 19.5mEq/l-elevated Cr: 1.5mEq/l-elevated Glucose: 145mg/dl-elevated LIVER: ALP 128U/L Medical Decision Making - Medical Decision Making 05/28/20 18:51 EKG: sinus rhtyhm, ventricular rate 87/m, Rt. BBB, Lt. axis deviation. no isch emic changes. Pain control: responsive to torado. 1L fluid given Labs: CBC= normal, CMP: elevated BUN/Cr. UA:suggestive of infection,?UTI. Ceftriaxone given. CT scan showed obstructed kidney stone at [facility]. ED physician consulted Urologist Dr. Lancaster . Lithotripsy planned for tomorrow morning (1)KIDNEY: -Mild to moderate hydronephrosis with 0.2cm obstructing b/l calculi -Mild to moderate renal cortical scarring -Small calcified Lt. pelvic phlebolith -Rt. cortical cyst -Lt. adrenal nodule-1.3cm in size. Adenoma based on statistics. Size unchanged when compared when to previous CT of 07/27/2018 (2) Small Rt. hepatic lobe calcification (3)Spleen and pancreas: looks normal (4)No aortic aneurysm, no L. node (5)Colonic diverticulosis present but no evidence of diverticulitis Appendix appears normal. No small bowel pathology NO pneumoperitonium, free intraperitoneal fluid or bowel obstruction REVIEW OF SYSTEMS Negative except as per HPI PAST MEDICAL HISTORY: Kidney stones HTN Hyperlipidemia Sarcoidosis COPD Anemia PAST SURGICAL HISTORY: Cholecystectomy: Status post for mild cholecystectomy due to mild common bile duct dilatation( repeat dilatation) Lung biopsy Knee arthroscopy B/L stent kidney FAMILY HX: No significant past medical history Social History: Smoking:none Alcohol:none Drugs: none Allergies: None(food nor drug) No Known Drug Allergies Allergy (Verified 05/28/20 16:19) HOME MEDICATIONS: Home Medications Medication Instructions Recorded Olmesartan Medoxomil [Benicar -] 20 mg PO HS 05/03/13 Atorvastatin Ca [Lipitor] 20 mg PO HS 01/08/15 Cholecalciferol (Vitamin D3) 1,000 unit PO HS 08/20/15 [Vitamin D3] Metformin HCl [Glucophage] 500 mg PO HS 11/23/19 Rizatriptan Benzoate [Rizatriptan] 5 mg PO PRN PRN 11/23/19 Hydrocodone/Acetaminophen 1 each PO Q6H #20 tablet MDD 4 11/24/19 [Hydrocodone-Acetamin 5-325 mg] PHYSICAL EXAMINATION Vital Signs - 24 hr 05/28/20 05/28/20 05/28/20 16:19 20:29 20:39 Temperature 98.4 F Pulse Rate 106 H Pulse Rate [ 90 Radial] Respiratory 17 22 H Rate Blood Pressure 141/83 Blood Pressure 152/79 [Right Arm] O2 Sat by Pulse 100 100 100 Oximetry (%) 05/28/20 22:22 Temperature 98.4 Pulse Rate 90 Pulse Rate [ 79 Radial] Respiratory 22 Rate Blood Pressure 152/79 Blood Pressure 132/79 [Right Arm] O2 Sat by Pulse 100 Oximetry (%) GENERAL: Awake, alert, and fully oriented, in no acute distress. HEAD: Normal with no signs of trauma. NECK: Normal range of motion, no lymphadenopathy, JVD, or masses. LUNGS: Breath sounds equal, clear to auscultation bilaterally. No wheezes, and no crackles. No accessory muscle use. HEART: Regular rate and rhythm, S1 and S2 present and regular-without murmur, rub or gallop. ABDOMEN: Soft, nontender, not distended, normoactive bowel sounds, no guarding, no rebound, no masses. No hepatomegaly or splenomegaly. MUSCULOSKELETAL: Left FLANK PAIN , Midline lumbar incision scar, + CVA tenderness. UPPER EXTREMITIES: 2+ pulses, warm, well-perfused. No cyanosis. No clubbing. LOWER EXTREMITIES: 2+ pulses, warm, well-perfused. No calf tenderness. No peripheral edema. NEUROLOGICAL: Cranial nerves II-XII intact. Normal speech. PSYCHIATRIC: Cooperative. Good eye contact. Appropriate mood and affect but anxious SKIN: Warm, dry, normal turgor, no rashes or lesions noted, normal capillary refill. Laboratory Results - last 24 hr 05/28/20 05/28/20 05/28/20 17:25 17:25 17:30 WBC 7.7 RBC 4.30 Hgb 12.7 Hct 38.1 MCV 88.6 MCH 29.6 MCHC 33.4 RDW 12.7 Plt Count 154 MPV 8.6 Sodium 143 Potassium 4.1 Chloride 111 H Carbon Dioxide 23 Anion Gap 9 BUN 19.5 H Creatinine 1.5 H Est GFR (CKD-EPI)AfAm 44.67 Est GFR (CKD-EPI)NonAf 38.54 POC Glucometer Random Glucose 145 H Calcium 9.4 Total Bilirubin 0.2 AST 20 ALT 28 Alkaline Phosphatase 128 H Total Protein 7.3 Albumin 3.8 Urine Color Yellow Urine Appearance Cloudy Urine pH 5.0 Ur Specific [place] 1.027 Urine Protein Trace Urine Glucose (UA) Negative Urine Ketones Negative Urine Blood 3+ H Urine Nitrite Negative Urine Bilirubin Negative Urine Urobilinogen 0.2 Ur Leukocyte Esterase 1+ H Urine WBC (Auto) 40 Urine RBC (Auto) 523.5 Urine Casts (Auto) 1 U Epithel Cells (Auto) 10 Urine Crystals (Auto) Uric acid Urine Bacteria (Auto) 441 05/28/20 21:56 WBC RBC Hgb Hct MCV MCH MCHC RDW Plt Count MPV Sodium Potassium Chloride Carbon Dioxide Anion Gap BUN Creatinine Est GFR (CKD-EPI)AfAm Est GFR (CKD-EPI)NonAf POC Glucometer 117 Random Glucose Calcium Total Bilirubin AST ALT Alkaline Phosphatase Total Protein Albumin Urine Color Urine Appearance Urine pH Ur Specific [place] Urine Protein Urine Glucose (UA) Urine Ketones Urine Blood Urine Nitrite Urine Bilirubin Urine Urobilinogen Ur Leukocyte Esterase Urine WBC (Auto) Urine RBC (Auto) Urine Casts (Auto) U Epithel Cells (Auto) Urine Crystals (Auto) Urine Bacteria (Auto) ASSESSMENT/PLAN: Pt is a 55yo female who is being managed for multiple b/l kidney stones, now presenting with Lt. flank pain of x 1day, radiating to the back, now relieved by torado shot but was not responsive to tramadol which was taken at home Hold ANC in loop of a proocedure for today MONY secondary to OBSTRUCTED CALCULUS MILD TO MODERATE HYDRONEPHROSIS Visit type - Emergency Visit Emergency Visit: Yes ED Registration Date: 05/28/20 Care time: The patient presented to the Emergency Department on the above date and was hospitalized for further evaluation of their emergent condition. - New Patient This patient is new to me today: Yes Date on this admission: 05/28/20 - Critical Care Critical Care patient: No ATTENDING PHYSICIAN STATEMENT I saw and evaluated the patient. I reviewed the resident's note and discussed the case with the resident. I agree with the resident's findings and plan as documented. SUBJECTIVE: OBJECTIVE: ASSESSMENT AND PLAN:
[2020-05-29] MEDS ORDERED: MORPHINE SULFATE 2 MG/ML VIAL IVPUSH ONE (04:05)
[2020-05-29] MEDS ORDERED: morphine CARPU-JECT 4 MG/1 ML DISP.SYRIN IVPUSH ONE (04:05)
[2020-05-29] MEDS ORDERED: MORPHINE SULFATE 2 MG/ML VIAL ONE (04:06)
[2020-05-29 06:44] LABS: BASO % 0.3 % (0-2.0); EOS % 1.3 % (0-4.5); HEMATOCRIT 34.7 % (32.4-45.2); HEMOGLOBIN 11.5 GM/dL (10.7-15.3); LYMPH % 19.1 % (8-40); MCH 29.3 pg (25.7-33.7); MCHC 33.2 g/dl (32.0-36.0); MEAN CELL VOLUME 88.3 fl (80-96); MEAN PLT VOLUME 8.9 fl (7.5-11.1); MONO % 10.5 % (3.8-10.2); NEUT % 68.8 % (42.8-82.8); PLATELET COUNT 142 K/MM3 (134-434); RBC 3.93 M/mm3 (3.60-5.2); RDW 12.8 % (11.6-15.6); WHITE BLOOD COUNT 5.7 K/mm3 (4.0-10.0)
[2020-05-29 07:12] LABS: ALBUMIN 3.4 g/dl (3.4-5.0); BILIRUBIN,TOTAL 0.4 mg/dL (0.2-1); BLOOD UREA NITROGEN 20.7 mg/dL (7-18); CALCIUM 8.8 mg/dL (8.5-10.1); CREATININE 1.7 mg/dL (0.55-1.3); MAGNESIUM 2.1 mg/dL (1.8-2.4); PHOSPHOROUS 3.8 mg/dL (2.5-4.9); POTASSIUM 3.8 mmol/L (3.5-5.1); TOT PROT 6.6 g/dl (6.4-8.2)
[2020-05-29] MEDS ORDERED: ACETAMINOPHEN 1000 MG/100 ML VIAL (NON FORMULARY) IVPB PRN (07:51)
[2020-05-29] MEDS ORDERED: morphine CARPU-JECT 2 MG/1 ML DISP.SYRIN IVPUSH PRN (07:51)
[2020-05-29] MEDS ORDERED: LACTATED RINGERS SOLUTION 1,000 ML/1,000 ML INFUS.BAG IV SCH (07:53)
[2020-05-29] MEDS: INSULIN SLIDING SCALE (NOVOLOG) 1 VIAL SQ SCH ×3 (08:07→17:11)
[2020-05-29] MEDS ORDERED: TAMSULOSIN HCL 0.4 MG CAP PO ONE (08:33)
[2020-05-29] MEDS ORDERED: MORPHINE SULFATE 2 MG/ML VIAL IVPUSH PRN (08:57)
--- NOTE | 2020-05-29 09:14 | EKG ---
Test Reason : Blood Pressure : / mmHG Vent. Rate : 073 BPM Atrial Rate : 073 BPM P-R Int : 158 ms QRS Dur : 134 ms QT Int : 414 ms P-R-T Axes : 026 -33 019 degrees QTc Int : 456 ms NORMAL SINUS RHYTHM LEFT AXIS DEVIATION RIGHT BUNDLE BRANCH BLOCK ABNORMAL ECG WHEN COMPARED WITH ECG OF 31-DEC-2016 22:02, QT HAS SHORTENED Confirmed by MD RANDI, SANTIAGO ([id number]) on 05/29/2020 9:14:15 AM Referred By: Confirmed By:SANTIAGO BRYAN MD
--- NOTE | 2020-05-29 09:15 | EKG ---
Test Reason : Blood Pressure : / mmHG Vent. Rate : 087 BPM Atrial Rate : 087 BPM P-R Int : 150 ms QRS Dur : 132 ms QT Int : 398 ms P-R-T Axes : 056 -39 024 degrees QTc Int : 478 ms NORMAL SINUS RHYTHM LEFT AXIS DEVIATION RIGHT BUNDLE BRANCH BLOCK ABNORMAL ECG WHEN COMPARED WITH ECG OF 31-DEC-2016 22:02, NO SIGNIFICANT CHANGE WAS FOUND Confirmed by MD RANDI, SANTIAGO ([id number]) on 05/29/2020 9:15:11 AM Referred By: Confirmed By:SANTIAGO BRYAN MD
[2020-05-29] MEDS ORDERED: LOSARTAN POTASSIUM 25 MG TABLET PO SCH (10:00)
[2020-05-29] MEDS ORDERED: ENOXAPARIN NA (PORCINE) 40 MG/0.4 ML DISP.SYRIN SQ SCH (10:00)
[2020-05-29] MEDS ORDERED: TAMSULOSIN HCL 0.4 MG CAP ONE (10:06)
[2020-05-29] MEDS ORDERED: CEFTRIAXONE 2 GM/100 ML BAG IVPB ONE (10:10)
[2020-05-29] MEDS: CEFTRIAXONE 2 GM in DEXTROSE 5%-WATER 100 ML IVPB SCH (10:12)
--- NOTE | 2020-05-29 10:49 | CON.GU ---
Consult Consult Specialty:: Urology Referred by:: ER Reason for Consultation:: Left flank pain - History of Present Illness Chief Complaint: Left flank pain History of Present Illness: 55 yo female w long hx of renal calculi and prior UTIs Pt now w 8 mm left upj stone w severe pain and T99 - Past Medical History Cardio/Vascular: Yes: HTN, Hyperlipdemia Pulmonary: Yes: Other (sarcoidosis) ...LMP: 02/01/12 - Past Surgical History Past Surgical History: Yes: Arthrosocopy, Cholecystectomy, - Alcohol/Substance Use Hx Alcohol Use: Yes (OCCASIONAL) - Smoking History Smoking history: Never smoked Have you smoked in the past 12 months: No Aproximately how many cigarettes per day: 0 Home Medications - Allergies Allergies/Adverse Reactions: Allergies Allergy/AdvReac Type Severity Reaction Status Date / Time No Known Drug Allergies Allergy Verified 05/28/20 16:19 - Home Medications Home Medications: Ambulatory Orders Olmesartan Medoxomil [Benicar -] 20 mg PO HS 05/03/13 Atorvastatin Ca [Lipitor] 20 mg PO HS 01/08/15 Cholecalciferol (Vitamin D3) [Vitamin D3] 1,000 unit PO HS 08/20/15 Metformin HCl [Glucophage] 500 mg PO HS 11/23/19 Rizatriptan Benzoate [Rizatriptan] 5 mg PO PRN PRN 11/23/19 Hydrocodone/Acetaminophen [Hydrocodone-Acetamin 5-325 mg] 1 each PO Q6H #20 tablet MDD 4 11/24/19 Physical Exam- Vital Signs: Vital Signs Temperature 99.1 F 05/29/20 07:00 Pulse Rate 84 05/29/20 05:00 Respiratory Rate 18 05/29/20 05:00 Blood Pressure 138/72 05/29/20 05:00 O2 Sat by Pulse Oximetry (%) 100 05/29/20 05:00 Gastrointestinal: Yes: Normal Bowel Sounds (LCVAT) Labs: CBC, BMP 05/29/20 05:40 05/29/20 05:40 Problem List - Problems (1) Renal colic on left side Assessment/Plan: Left obstructing 8 mm stone w elevated Cr and T 99 w severe pain Covid test pending Do to pt hx of prior UTIs DM and t99 will proceed w cysto stent possible URS Will follow covid test currently pending Code(s): N23 - UNSPECIFIED RENAL COLIC
[2020-05-29] MEDS ORDERED: fentaNYL CITRATE 250 MCG/5 ML VIAL ONE (10:52)
[2020-05-29] MEDS ORDERED: MIDAZOLAM HCL 2 MG/2 ML SINGLE DOSE VIAL ONE (10:53)
[2020-05-29] MEDS ORDERED: PROPOFOL 20 ML ONE (10:53)
[2020-05-29] MEDS ORDERED: ROCURONIUM BROMIDE 50 MG/5 ML SYRINGE ONE (10:53)
[2020-05-29] MEDS ORDERED: LIDOCAINE HCL 2% JELLY (5 ML/TUBE) ONE (11:08)
[2020-05-29] MEDS ORDERED: LIDOCAINE HCL/PF 2% SDV 5ML VIAL ONE (11:08)
--- NOTE | 2020-05-29 11:48 | OP ---
Operative Note - Note: Operative Date: 05/29/20 Pre-Operative Diagnosis: Left renal colic Operation: cystoscopy left ureteral stent placement Findings: Left 8 mm stone prox ureter Post-Operative Diagnosis: Same as Pre-op Surgeon: Clark Lancaster MD. Anesthesia: General Operative Report Dictated: Yes
[2020-05-29] MEDS ORDERED: ONDANSETRON 4 MG/2 ML VIAL IVPUSH PRN (12:26)
[2020-05-29] MEDS ORDERED: LACTATED RINGERS SOLUTION 1,000 ML IV SCH (12:30)
[2020-05-29] MEDS: LACTATED RINGERS SOLUTION 1,000 ML/1,000 ML INFUS.BAG IV SCH ×2 (13:18→21:45)
[2020-05-29 13:50] VITALS: BMI 34.2
--- NOTE | 2020-05-29 15:45 | PN ---
Physical Exam: SUBJECTIVE: Patient seen and examined at bedside this morning, Patient admitted yesterday for left flank pain, found to have 0.8cm L UVJ stone. OBJECTIVE: Vital Signs Temperature 98.8 F 05/29/20 13:08 Pulse Rate 80 05/29/20 13:08 Respiratory Rate 18 05/29/20 13:08 Blood Pressure 138/70 05/29/20 13:08 O2 Sat by Pulse Oximetry (%) 99 05/29/20 13:13 GENERAL: The patient is awake, alert, and fully oriented, in no acute distress. NECK: Trachea midline, full range of motion, supple. LUNGS: Breath sounds equal, clear to auscultation bilaterally HEART: Regular rate and rhythm, S1, S2 without murmur, rub or gallop. ABDOMEN: Soft, nontender, nondistended, normoactive bowel sounds EXTREMITIES: 2+ pulses, warm, well-perfused, no edema. NEUROLOGICAL: Cranial nerves II through XII grossly intact. Normal speech PSYCH: Normal mood, normal affect. SKIN: Warm, dry, normal turgor Laboratory Results - last 24 hr 05/28/20 05/28/20 05/28/20 17:25 17:25 17:30 WBC 7.7 RBC 4.30 Hgb 12.7 Hct 38.1 MCV 88.6 MCH 29.6 MCHC 33.4 RDW 12.7 Plt Count 154 MPV 8.6 Absolute Neuts (auto) Neutrophils % Lymphocytes % Monocytes % Eosinophils % Basophils % Nucleated RBC % Sodium 143 Potassium 4.1 Chloride 111 H Carbon Dioxide 23 Anion Gap 9 BUN 19.5 H Creatinine 1.5 H Est GFR (CKD-EPI)AfAm 44.67 Est GFR (CKD-EPI)NonAf 38.54 POC Glucometer Random Glucose 145 H Calcium 9.4 Phosphorus Magnesium Total Bilirubin 0.2 AST 20 ALT 28 Alkaline Phosphatase 128 H Total Protein 7.3 Albumin 3.8 Urine Color Yellow Urine Appearance Cloudy Urine pH 5.0 Ur Specific [place] 1.027 Urine Protein Trace Urine Glucose (UA) Negative Urine Ketones Negative Urine Blood 3+ H Urine Nitrite Negative Urine Bilirubin Negative Urine Urobilinogen 0.2 Ur Leukocyte Esterase 1+ H Urine WBC (Auto) 40 Urine RBC (Auto) 523.5 Urine Casts (Auto) 1 U Epithel Cells (Auto) 10 Urine Crystals (Auto) Uric acid Urine Bacteria (Auto) 441 05/28/20 05/29/20 05/29/20 21:56 05:40 05:40 WBC 5.7 RBC 3.93 Hgb 11.5 Hct 34.7 MCV 88.3 MCH 29.3 MCHC 33.2 RDW 12.8 Plt Count 142 MPV 8.9 Absolute Neuts (auto) 3.9 Neutrophils % 68.8 Lymphocytes % 19.1 D Monocytes % 10.5 H Eosinophils % 1.3 D Basophils % 0.3 Nucleated RBC % 0 Sodium 145 Potassium 3.8 Chloride 113 H Carbon Dioxide 22 Anion Gap 10 BUN 20.7 H Creatinine 1.7 H Est GFR (CKD-EPI)AfAm 38.40 Est GFR (CKD-EPI)NonAf 33.13 POC Glucometer 117 Random Glucose 117 H Calcium 8.8 Phosphorus 3.8 Magnesium 2.1 Total Bilirubin 0.4 AST 16 ALT 23 Alkaline Phosphatase 112 Total Protein 6.6 Albumin 3.4 Urine Color Urine Appearance Urine pH Ur Specific [place] Urine Protein Urine Glucose (UA) Urine Ketones Urine Blood Urine Nitrite Urine Bilirubin Urine Urobilinogen Ur Leukocyte Esterase Urine WBC (Auto) Urine RBC (Auto) Urine Casts (Auto) U Epithel Cells (Auto) Urine Crystals (Auto) Urine Bacteria (Auto) 05/29/20 05/29/20 08:00 12:19 WBC RBC Hgb Hct MCV MCH MCHC RDW Plt Count MPV Absolute Neuts (auto) Neutrophils % Lymphocytes % Monocytes % Eosinophils % Basophils % Nucleated RBC % Sodium Potassium Chloride Carbon Dioxide Anion Gap BUN Creatinine Est GFR (CKD-EPI)AfAm Est GFR (CKD-EPI)NonAf POC Glucometer 121 108 Random Glucose Calcium Phosphorus Magnesium Total Bilirubin AST ALT Alkaline Phosphatase Total Protein Albumin Urine Color Urine Appearance Urine pH Ur Specific [place] Urine Protein Urine Glucose (UA) Urine Ketones Urine Blood Urine Nitrite Urine Bilirubin Urine Urobilinogen Ur Leukocyte Esterase Urine WBC (Auto) Urine RBC (Auto) Urine Casts (Auto) U Epithel Cells (Auto) Urine Crystals (Auto) Urine Bacteria (Auto) Active Medications Generic Name Dose Route Start Last Admin Trade Name Freq PRN Reason Stop Dose Admin Acetaminophen 1,000 mg 05/29/20 07:51 Ofirmev Injection - IVPB 05/30/20 07:51 Q6H PRN PAIN LEVEL 6-10 Fentanyl 50 mcg 05/29/20 12:26 05/29/20 11:40 Sublimaze Injection - IVPUSH 05/30/20 12:25 50 mcg [id number] PRN Administration PAIN-PACU ORDER X 4 DOSES ONLY Ceftriaxone Sodium 2 gm/ 100 mls @ 200 mls/hr 05/29/20 10:00 05/29/20 10:12 Dextrose IVPB 200 mls/hr DAILY HIRAM Administration Lactated Ringer's 1,000 ml in 1,000 mls @ 100 mls/hr 05/29/20 13:15 05/29/20 13:18 Lactated Ringers Solution IV 100 mls/hr ASDIR HIRAM Administration Insulin Aspart 1 vial 05/28/20 23:15 05/29/20 13:09 Novolog Vial Sliding Scale - SQ Not Given TIDAC HIRAM Protocol Morphine Sulfate 2 mg 05/29/20 08:57 05/29/20 13:14 Morphine Sulfate IVPUSH 2 mg Q6H PRN Administration PAIN LEVEL 7 - 10 Ondansetron HCl 4 mg 05/29/20 12:26 Zofran Injection IVPUSH 05/30/20 12:25 Q6H PRN NAUSEA AND/OR VOMITING ASSESSMENT/PLAN: Patient is a 55y/o F with significant past medical history of kidney stones, hypertension, hyperlipidemia, sarcoidosis, COPD, and anemia presented with left flank pain for 1 day. #Left nephrolithiasis -CTAP: 0.8cm L UVJ stone -POD 0: cystoscopy, left ureteral stent placement -will continue IV Ceftriaxone -pain control -Urology (Dr. Lancaster) consulted. Recommendations appreciated. #MONY -likely post-obstructive 2/2 kidney stone -IVF hydration -will monitor renal function and I&O -Urine cr/na -avoid NSAIDs -Nephrology (Dr. Lu) consulted. #HTN -On home olmesartan -will hold insetting of MONY -BP stable, monitor for now #HLD -Continue Atorvastatin 20mg HS #Hx of Sarcoidosis -On Prednisone intermittently, has been off >1 year -follows up with Dr. Brown -Albuterol ih prn for SOB #Hx of Elevated blood sugar -2/2 to chronic steroid use -will order A1c -hold metformin -ISS and bgm for now #FEN -IV LR @100cc/hr -Electrolytes wnl, routine bmp monitoring -Diabetic diet #Prophylaxis -Heparin 5000u sq tid #Disposition -full code -med surg Visit type - Emergency Visit Emergency Visit: Yes ED Registration Date: 05/28/20 Care time: The patient presented to the Emergency Department on the above date and was hospitalized for further evaluation of their emergent condition. - New Patient This patient is new to me today: Yes Date on this admission: 05/29/20 - Critical Care Critical Care patient: No ATTENDING PHYSICIAN STATEMENT I saw and evaluated the patient. I reviewed the resident's note and discussed the case with the resident. I agree with the resident's findings and plan as documented. SUBJECTIVE: OBJECTIVE: ASSESSMENT AND PLAN:
--- NOTE | 2020-05-29 16:56 | PN ---
Teaching Attending Note Name of Resident: Casandra Forrest ATTENDING PHYSICIAN STATEMENT I saw and evaluated the patient. I reviewed the resident's note and discussed the case with the resident. I agree with the resident's findings and plan as documented. SUBJECTIVE: Patient seen and examined at bedside, admitted for L nephrolithiasis and MONY, s/p ESWL. VSS. OBJECTIVE: GENERAL: Awake, alert, and fully oriented, not in distress HEAD: Normal with no signs of trauma. EYES: Pupils equal, round and reactive to light, extraocular movements intact, sclera anicteric, conjunctiva clear. EARS, NOSE, THROAT: Oropharynx clear without exudates. Moist mucous membranes. NECK: No JVD, or masses. LUNGS: Breath sounds equal, clear to auscultation bilaterally. No wheezes, and no crackles. No accessory muscle use. HEART: RRR normal S1 and S2 without murmur, rub or gallop. ABDOMEN: Soft, not distended, tender on left flank, Left CVA tenderness MUSCULOSKELETAL: Normal range of motion at all joints. No CVA tenderness. UPPER EXTREMITIES: 2+ pulses, warm, well-perfused. No peripheral edema. LOWER EXTREMITIES: 2+ pulses, warm, well-perfused. No calf tenderness. No peripheral edema. NEUROLOGICAL: Cranial nerves II-XII intact. Normal speech. PSYCHIATRIC: Cooperative. Good eye contact. Appropriate mood and affect. SKIN: Warm, dry, normal turgor, no rashes or lesions noted. Vital Signs - 24 hr 05/28/20 05/28/20 05/28/20 20:29 20:39 22:22 Temperature Pulse Rate Pulse Rate [ 90 79 Radial] Respiratory 22 H 18 Rate Blood Pressure Blood Pressure 152/79 132/79 [Right Arm] O2 Sat by Pulse 100 100 100 Oximetry (%) 05/29/20 05/29/20 05/29/20 02:20 05:00 07:00 Temperature 98.5 F 99.1 F Pulse Rate Pulse Rate [ 82 84 Radial] Respiratory 18 18 Rate Blood Pressure Blood Pressure 137/80 138/72 [Right Arm] O2 Sat by Pulse 100 100 Oximetry (%) 05/29/20 05/29/20 05/29/20 11:31 11:45 12:00 Temperature 98.6 F Pulse Rate 116 H 104 H 91 H Pulse Rate [ Radial] Respiratory 18 20 16 Rate Blood Pressure 131/60 113/56 L 100/81 Blood Pressure [Right Arm] O2 Sat by Pulse 99 97 97 Oximetry (%) 05/29/20 05/29/20 05/29/20 12:15 12:30 12:45 Temperature 98.4 F Pulse Rate 86 79 82 Pulse Rate [ Radial] Respiratory 24 H 23 H 25 H Rate Blood Pressure 106/48 L 124/65 127/73 Blood Pressure [Right Arm] O2 Sat by Pulse 97 97 98 Oximetry (%) 05/29/20 05/29/20 13:08 13:13 Temperature 98.8 F Pulse Rate 80 Pulse Rate [ Radial] Respiratory 18 Rate Blood Pressure 138/70 Blood Pressure [Right Arm] O2 Sat by Pulse 99 99 Oximetry (%) Laboratory Results - last 24 hr 05/28/20 05/28/20 05/28/20 17:25 17:25 17:30 WBC 7.7 RBC 4.30 Hgb 12.7 Hct 38.1 MCV 88.6 MCH 29.6 MCHC 33.4 RDW 12.7 Plt Count 154 MPV 8.6 Absolute Neuts (auto) Neutrophils % Lymphocytes % Monocytes % Eosinophils % Basophils % Nucleated RBC % Sodium 143 Potassium 4.1 Chloride 111 H Carbon Dioxide 23 Anion Gap 9 BUN 19.5 H Creatinine 1.5 H Est GFR (CKD-EPI)AfAm 44.67 Est GFR (CKD-EPI)NonAf 38.54 POC Glucometer Random Glucose 145 H Calcium 9.4 Phosphorus Magnesium Total Bilirubin 0.2 AST 20 ALT 28 Alkaline Phosphatase 128 H Total Protein 7.3 Albumin 3.8 Urine Color Yellow Urine Appearance Cloudy Urine pH 5.0 Ur Specific [place] 1.027 Urine Protein Trace Urine Glucose (UA) Negative Urine Ketones Negative Urine Blood 3+ H Urine Nitrite Negative Urine Bilirubin Negative Urine Urobilinogen 0.2 Ur Leukocyte Esterase 1+ H Urine WBC (Auto) 40 Urine RBC (Auto) 523.5 Urine Casts (Auto) 1 U Epithel Cells (Auto) 10 Urine Crystals (Auto) Uric acid Urine Bacteria (Auto) 441 05/28/20 05/29/20 05/29/20 21:56 05:40 05:40 WBC 5.7 RBC 3.93 Hgb 11.5 Hct 34.7 MCV 88.3 MCH 29.3 MCHC 33.2 RDW 12.8 Plt Count 142 MPV 8.9 Absolute Neuts (auto) 3.9 Neutrophils % 68.8 Lymphocytes % 19.1 D Monocytes % 10.5 H Eosinophils % 1.3 D Basophils % 0.3 Nucleated RBC % 0 Sodium 145 Potassium 3.8 Chloride 113 H Carbon Dioxide 22 Anion Gap 10 BUN 20.7 H Creatinine 1.7 H Est GFR (CKD-EPI)AfAm 38.40 Est GFR (CKD-EPI)NonAf 33.13 POC Glucometer 117 Random Glucose 117 H Calcium 8.8 Phosphorus 3.8 Magnesium 2.1 Total Bilirubin 0.4 AST 16 ALT 23 Alkaline Phosphatase 112 Total Protein 6.6 Albumin 3.4 Urine Color Urine Appearance Urine pH Ur Specific [place] Urine Protein Urine Glucose (UA) Urine Ketones Urine Blood Urine Nitrite Urine Bilirubin Urine Urobilinogen Ur Leukocyte Esterase Urine WBC (Auto) Urine RBC (Auto) Urine Casts (Auto) U Epithel Cells (Auto) Urine Crystals (Auto) Urine Bacteria (Auto) 05/29/20 05/29/20 08:00 12:19 WBC RBC Hgb Hct MCV MCH MCHC RDW Plt Count MPV Absolute Neuts (auto) Neutrophils % Lymphocytes % Monocytes % Eosinophils % Basophils % Nucleated RBC % Sodium Potassium Chloride Carbon Dioxide Anion Gap BUN Creatinine Est GFR (CKD-EPI)AfAm Est GFR (CKD-EPI)NonAf POC Glucometer 121 108 Random Glucose Calcium Phosphorus Magnesium Total Bilirubin AST ALT Alkaline Phosphatase Total Protein Albumin Urine Color Urine Appearance Urine pH Ur Specific [place] Urine Protein Urine Glucose (UA) Urine Ketones Urine Blood Urine Nitrite Urine Bilirubin Urine Urobilinogen Ur Leukocyte Esterase Urine WBC (Auto) Urine RBC (Auto) Urine Casts (Auto) U Epithel Cells (Auto) Urine Crystals (Auto) Urine Bacteria (Auto) Home Medications Medication Instructions Recorded Olmesartan Medoxomil [Benicar -] 20 mg PO HS 05/03/13 Atorvastatin Ca [Lipitor] 20 mg PO HS 01/08/15 Cholecalciferol (Vitamin D3) 1,000 unit PO HS 08/20/15 [Vitamin D3] Metformin HCl [Glucophage] 500 mg PO HS 11/23/19 Rizatriptan Benzoate [Rizatriptan] 5 mg PO PRN PRN 11/23/19 Hydrocodone/Acetaminophen 1 each PO Q6H #20 tablet MDD 4 11/24/19 [Hydrocodone-Acetamin 5-325 mg] Current Medications Generic Name Dose Route Start Last Admin Trade Name Freq PRN Reason Stop Dose Admin Acetaminophen 1,000 mg 05/29/20 07:51 Ofirmev Injection - IVPB 05/30/20 07:51 Q6H PRN PAIN LEVEL 6-10 Atorvastatin Calcium 20 mg 05/29/20 22:00 Lipitor - PO HS HIRAM Fentanyl 50 mcg 05/29/20 12:26 05/29/20 11:40 Sublimaze Injection - IVPUSH 05/30/20 12:25 50 mcg [id number] PRN Administration PAIN-PACU ORDER X 4 DOSES ONLY Heparin Sodium (Porcine) 5,000 unit 05/30/20 10:00 Heparin - SQ TID HIRAM Ceftriaxone Sodium 2 gm/ 100 mls @ 200 mls/hr 05/29/20 10:00 05/29/20 10:12 Dextrose IVPB 200 mls/hr DAILY HIRAM Administration Lactated Ringer's 1,000 ml in 1,000 mls @ 100 mls/hr 05/29/20 13:15 05/29/20 13:18 Lactated Ringers Solution IV 100 mls/hr ASDIR HIRAM Administration Insulin Aspart 1 vial 05/28/20 23:15 05/29/20 13:09 Novolog Vial Sliding Scale - SQ Not Given TIDAC [facility] Protocol Morphine Sulfate 2 mg 05/29/20 08:57 05/29/20 13:14 Morphine Sulfate IVPUSH 2 mg Q6H PRN Administration PAIN LEVEL 7 - 10 Ondansetron HCl 4 mg 05/29/20 12:26 Zofran Injection IVPUSH 05/30/20 12:25 Q6H PRN NAUSEA AND/OR VOMITING ASSESSMENT AND PLAN: 55 F L renal stone MONY Obesity HTN HLD T2DM Plan: COnt. aggressive hydration, avoid nephrotoxins Urology evaluation for evacuation of stone Tylenol PRN for pain Pilar-operative abx PRN DVT ppx: Heparin SC
--- NOTE | 2020-05-29 17:01 | CONSULT ---
Consult Consult Specialty:: Nephrology Reason for Consultation:: MONY - History of Present Illness Chief Complaint: left flank pain History of Present Illness: Pt is a 55 year old female with pmhx of ckd and sarcoid who presents to the ER with left flank pain. SHe was found to have a stone and was taken for cysto. 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 She does have history of ckd. She has not followed up in the office for over a years but she says that her financial institution treasurer has been stable. She denies fevers of chills. - History Source History Provided By: Patient, Medical Record - Past Medical History Cardio/Vascular: Yes: HTN, Hyperlipdemia Pulmonary: Yes: Other (sarcoidosis) Renal/: Yes: Renal Inusuff ...LMP: 02/01/12 - Past Surgical History Past Surgical History: Yes: Arthrosocopy, Cholecystectomy, - Alcohol/Substance Use Hx Alcohol Use: Yes (OCCASIONAL) - Smoking History Smoking history: Never smoked Have you smoked in the past 12 months: No Aproximately how many cigarettes per day: 0 Home Medications - Allergies Allergies/Adverse Reactions: Allergies Allergy/AdvReac Type Severity Reaction Status Date / Time No Known Drug Allergies Allergy Verified 05/28/20 16:19 - Home Medications Home Medications: Ambulatory Orders Olmesartan Medoxomil [Benicar -] 20 mg PO HS 05/03/13 Atorvastatin Ca [Lipitor] 20 mg PO HS 01/08/15 Cholecalciferol (Vitamin D3) [Vitamin D3] 1,000 unit PO HS 08/20/15 Metformin HCl [Glucophage] 500 mg PO HS 11/23/19 Rizatriptan Benzoate [Rizatriptan] 5 mg PO PRN PRN 11/23/19 Hydrocodone/Acetaminophen [Hydrocodone-Acetamin 5-325 mg] 1 each PO Q6H #20 tablet MDD 4 11/24/19 Family Medical History Family History: Denies Review of Systems - Review of Systems Constitutional: reports: No Symptoms Eyes: reports: No Symptoms HENT: reports: No Symptoms Neck: reports: No Symptoms Cardiovascular: reports: No Symptoms Respiratory: reports: No Symptoms Gastrointestinal: reports: No Symptoms Genitourinary: reports: No Symptoms Musculoskeletal: reports: No Symptoms Integumentary: reports: No Symptoms Neurological: reports: No Symptoms Endocrine: reports: No Symptoms Hematology/Lymphatic: reports: No Symptoms Psychiatric: reports: No Symptoms Physical Exam Vital Signs: Vital Signs Temperature 98.8 F 05/29/20 13:08 Pulse Rate 80 05/29/20 13:08 Respiratory Rate 18 05/29/20 13:08 Blood Pressure 138/70 05/29/20 13:08 O2 Sat by Pulse Oximetry (%) 99 05/29/20 13:13 Constitutional: Yes: Calm Eyes: Yes: Conjunctiva Clear HENT: Yes: Atraumatic Neck: Yes: Supple Cardiovascular: Yes: S1, S2 Respiratory: Yes: CTA Bilaterally Gastrointestinal: Yes: Normal Bowel Sounds, Soft Renal/: Yes: WNL Musculoskeletal: Yes: WNL Edema: No Neurological: Yes: Oriented Psychiatric: Yes: Oriented Labs: CBC, BMP 05/29/20 05:40 05/29/20 05:40 Imaging - Results Cat Scan: Report Reviewed Problem List - Problems (1) Renal colic on left side Code(s): N23 - UNSPECIFIED RENAL COLIC (2) Acute kidney injury Code(s): N17.9 - ACUTE KIDNEY FAILURE, UNSPECIFIED Assessment/Plan Current Medications Generic Name Dose Route Start Last Admin Trade Name Freq PRN Reason Stop Dose Admin Acetaminophen 1,000 mg 05/29/20 07:51 Ofirmev Injection - IVPB 05/30/20 07:51 Q6H PRN PAIN LEVEL 6-10 Atorvastatin Calcium 20 mg 05/29/20 22:00 Lipitor - PO HS HIRAM Fentanyl 50 mcg 05/29/20 12:26 05/29/20 11:40 Sublimaze Injection - IVPUSH 05/30/20 12:25 50 mcg [id number] PRN Administration PAIN-PACU ORDER X 4 DOSES ONLY Heparin Sodium (Porcine) 5,000 unit 05/30/20 10:00 Heparin - SQ TID HIRAM Ceftriaxone Sodium 2 gm/ 100 mls @ 200 mls/hr 05/29/20 10:00 05/29/20 10:12 Dextrose IVPB 200 mls/hr DAILY HIRAM Administration Lactated Ringer's 1,000 ml in 1,000 mls @ 100 mls/hr 05/29/20 13:15 05/29/20 13:18 Lactated Ringers Solution IV 100 mls/hr ASDIR HIRAM Administration Insulin Aspart 1 vial 05/28/20 23:15 05/29/20 13:09 Novolog Vial Sliding Scale - SQ Not Given TIDAC [facility] Protocol Morphine Sulfate 2 mg 05/29/20 08:57 05/29/20 13:14 Morphine Sulfate IVPUSH 2 mg Q6H PRN Administration PAIN LEVEL 7 - 10 Ondansetron HCl 4 mg 05/29/20 12:26 Zofran Injection IVPUSH 05/30/20 12:25 Q6H PRN NAUSEA AND/OR VOMITING Impression 1. MONY 2. sarcoidosis 3. HTN 4. hyperlipidemia 5. cough 6. hx of anemia 7. nephrolithiasis 8. left adrenal adenoma 9. left hydro Plan - pt is s/p cysto - repeat labs in am - monitor urine output - check ua and lytes - avoid nsaids - will follow pt
[2020-05-29] MEDS: ATORVASTATIN CA 20 MG TABLET (FP) PO SCH (21:43)
[2020-05-30] MEDS: INSULIN SLIDING SCALE (NOVOLOG) 1 VIAL SQ SCH ×3 (06:16→17:09)
[2020-05-30] MEDS: LACTATED RINGERS SOLUTION 1,000 ML/1,000 ML INFUS.BAG IV SCH ×2 (06:45→18:01)
[2020-05-30 08:09] LABS: BASO % 0.2 % (0-2.0); HEMATOCRIT 30.7 % (32.4-45.2); HEMOGLOBIN 10.4 GM/dL (10.7-15.3); LYMPH % 17.5 % (8-40); MCH 29.7 pg (25.7-33.7); MCHC 33.8 g/dl (32.0-36.0); MEAN PLT VOLUME 8.4 fl (7.5-11.1); MONO % 11.2 % (3.8-10.2); NEUT % 68.1 % (42.8-82.8); PLATELET COUNT 127 K/MM3 (134-434); RBC 3.49 M/mm3 (3.60-5.2); RDW 12.2 % (11.6-15.6); WHITE BLOOD COUNT 5.8 K/mm3 (4.0-10.0)
[2020-05-30 08:37] LABS: ALBUMIN 2.7 g/dl (3.4-5.0); BILIRUBIN,TOTAL 0.8 mg/dL (0.2-1); BLOOD UREA NITROGEN 13.6 mg/dL (7-18); CALCIUM 8.4 mg/dL (8.5-10.1); CREATININE 1.2 mg/dL (0.55-1.3); POTASSIUM 3.6 mmol/L (3.5-5.1); TOT PROT 5.5 g/dl (6.4-8.2)
[2020-05-30] MEDS ORDERED: DEXTROSE 5%-WATER 100 ML IVPB ONE (09:25)
[2020-05-30] MEDS: CEFTRIAXONE 2 GM in DEXTROSE 5%-WATER 100 ML IVPB SCH (09:34)
[2020-05-30] MEDS: HEPARIN NA (PORCINE) 5,000 UNITS/ML 1ML VIAL SQ SCH ×3 (09:35→21:10)
--- NOTE | 2020-05-30 12:01 | PN ---
Progress Note, Physician History of Present Illness: Pt seen and examined at bedside. She is awake and alert. SHe complains of dysuria. - Current Medication List Current Medications: Active Medications Atorvastatin Calcium (Lipitor -) 20 mg PO HS [facility] Last Admin: 05/29/20 21:43 Dose: 20 mg Documented by: Fentanyl (Sublimaze Injection -) 50 mcg IVPUSH [id number] PRN PRN Reason: PAIN-PACU ORDER X 4 DOSES ONLY Stop: 05/30/20 12:25 Last Admin: 05/29/20 11:40 Dose: 50 mcg Documented by: Heparin Sodium (Porcine) (Heparin -) 5,000 unit SQ TID [facility] Last Admin: 05/30/20 09:35 Dose: 5,000 unit Documented by: Ceftriaxone Sodium 2 gm/ (Dextrose) 100 mls @ 200 mls/hr IVPB DAILY [facility] Last Admin: 05/30/20 09:34 Dose: 200 mls/hr Documented by: Lactated Ringer's (Lactated Ringers Solution) 1,000 ml in 1,000 mls @ 100 mls/hr IV ASDIR [facility] Last Admin: 05/30/20 06:45 Dose: 100 mls/hr Documented by: Insulin Aspart (Novolog Vial Sliding Scale -) 1 vial SQ TIDAC [facility]; Protocol Last Admin: 05/30/20 11:28 Dose: Not Given Documented by: Morphine Sulfate (Morphine Sulfate) 2 mg IVPUSH Q6H PRN PRN Reason: PAIN LEVEL 7 - 10 Last Admin: 05/29/20 13:14 Dose: 2 mg Documented by: Ondansetron HCl (Zofran Injection) 4 mg IVPUSH Q6H PRN PRN Reason: NAUSEA AND/OR VOMITING Stop: 05/30/20 12:25 - Objective Vital Signs: Vital Signs Temperature 99.2 F 05/30/20 05:00 Pulse Rate 79 05/30/20 05:00 Respiratory Rate 18 05/30/20 05:00 Blood Pressure 110/66 05/30/20 05:00 O2 Sat by Pulse Oximetry (%) 95 05/30/20 05:00 Constitutional: Yes: Calm Eyes: Yes: Conjunctiva Clear HENT: Yes: Atraumatic Neck: Yes: Supple Cardiovascular: Yes: S1, S2 Respiratory: Yes: CTA Bilaterally Gastrointestinal: Yes: Normal Bowel Sounds, Soft Genitourinary: Yes: WNL Musculoskeletal: Yes: WNL Edema: No Neurological: Yes: Oriented Psychiatric: Yes: Oriented Labs: CBC, BMP 05/30/20 07:05 05/30/20 07:05 Problem List - Problems (1) Renal colic on left side Code(s): N23 - UNSPECIFIED RENAL COLIC (2) Acute kidney injury Code(s): N17.9 - ACUTE KIDNEY FAILURE, UNSPECIFIED Assessment/Plan Current Medications Generic Name Dose Route Start Last Admin Trade Name Freq PRN Reason Stop Dose Admin Atorvastatin Calcium 20 mg 05/29/20 22:00 05/29/20 21:43 Lipitor - PO 20 mg HS [facility]IRAM Administration Fentanyl 50 mcg 05/29/20 12:26 05/29/20 11:40 Sublimaze Injection - IVPUSH 05/30/20 12:25 50 mcg [id number] PRN Administration PAIN-PACU ORDER X 4 DOSES ONLY Heparin Sodium (Porcine) 5,000 unit 05/30/20 10:00 05/30/20 09:35 Heparin - SQ 5,000 unit TID HIRAM Administration Ceftriaxone Sodium 2 gm/ 100 mls @ 200 mls/hr 05/29/20 10:00 05/30/20 09:34 Dextrose IVPB 200 mls/hr DAILY [facility] Administration Lactated Ringer's 1,000 ml in 1,000 mls @ 100 mls/hr 05/29/20 13:15 05/30/20 06:45 Lactated Ringers Solution IV 100 mls/hr ASDIR [facility] Administration Insulin Aspart 1 vial 05/28/20 23:15 05/30/20 11:28 Novolog Vial Sliding Scale - SQ Not Given TIDAC [facility] Protocol Morphine Sulfate 2 mg 05/29/20 08:57 05/29/20 13:14 Morphine Sulfate IVPUSH 2 mg Q6H PRN Administration PAIN LEVEL 7 - 10 Ondansetron HCl 4 mg 05/29/20 12:26 Zofran Injection IVPUSH 05/30/20 12:25 Q6H PRN NAUSEA AND/OR VOMITING Impression 1. MONY 2. sarcoidosis 3. HTN 4. hyperlipidemia 5. cough 6. hx of anemia 7. nephrolithiasis 8. left adrenal adenoma 9. left hydro Plan - renal function improved - can start to decrease fluids - repeat labs in am - urology follow up - check ua and lytes - avoid nsaids - will follow pt
[2020-05-30] MEDS ORDERED: traMADol HCL 50 MG TABLET PO PRN (12:36)
--- NOTE | 2020-05-30 12:36 | OP ---
DATE OF OPERATION: 05/29/2020 PREOPERATIVE DIAGNOSIS: Left renal colic. POSTOPERATIVE DIAGNOSIS: Left renal colic. PROCEDURE: Left ureteral stent placement and cystoscopy. HISTORY: This is a 55-year-old female with a long history of recurrent renal calculi status post multiple prior procedures. The patient presented with left renal colic and found to have an 8-mm UPJ stone with hydronephrosis. The patient has a history of diabetes and currently temperature of 99 this morning. Discussing treatment options and the fact that the patient was having significant pain, the patient elected to undergo a more urgent procedure due to her pain and potential development of early sepsis. Due to COVID test not being resulted at this time, full precautions were taken. DETAILS OF PROCEDURE: The patient was brought to the operating room and placed in the supine position. General anesthesia was administered. The patient transferred to dorsal lithotomy position and prepped and draped in standard sterile fashion. Intravenous antibiotics were given. At this time a 22-Irish cystoscope sheath was placed in the bladder under direct vision. The bladder was otherwise unremarkable. The left orifice was identified. A 0.038 guidewire was passed into the left renal pelvis confirmed fluoroscopically. A number 22-cm 6-Irish double J stent was passed over the wire. The wire was removed. The stone was fluoroscopically confirmed to be in normal position. The bladder was drained. The patient was brought to the recovery room in stable satisfactory condition. KAMLESH WHALEY M.D. [id number]
[2020-05-30] MEDS ORDERED: TAMSULOSIN HCL 0.4 MG CAP PO ONE (12:37)
[2020-05-30] MEDS ORDERED: ACETAMINOPHEN 1000 MG/100 ML VIAL (NON FORMULARY) IVPB ONE (12:59)
--- NOTE | 2020-05-30 13:46 | PN ---
Physical Exam: SUBJECTIVE: Patient seen and examined OBJECTIVE: Vital Signs Temperature 99.2 F 05/30/20 05:00 Pulse Rate 79 05/30/20 05:00 Respiratory Rate 18 05/30/20 05:00 Blood Pressure 110/66 05/30/20 05:00 O2 Sat by Pulse Oximetry (%) 95 05/30/20 05:00 GENERAL: The patient is awake, alert, and fully oriented, in no acute distress. NECK: Trachea midline, full range of motion, supple. LUNGS: Breath sounds equal, clear to auscultation bilaterally HEART: Regular rate and rhythm, S1, S2 without murmur, rub or gallop. ABDOMEN: Soft, nontender, nondistended, normoactive bowel sounds EXTREMITIES: 2+ pulses, warm, well-perfused, no edema. NEUROLOGICAL: Cranial nerves II through XII grossly intact. Normal speech PSYCH: Normal mood, normal affect. SKIN: Warm, dry, normal turgor Laboratory Results - last 24 hr 05/29/20 05/29/20 05/29/20 04:56 17:01 22:00 WBC RBC Hgb Hct MCV MCH MCHC RDW Plt Count MPV Absolute Neuts (auto) Neutrophils % Lymphocytes % Monocytes % Eosinophils % Basophils % Nucleated RBC % Sodium Potassium Chloride Carbon Dioxide Anion Gap BUN Creatinine Est GFR (CKD-EPI)AfAm Est GFR (CKD-EPI)NonAf POC Glucometer 126 Random Glucose Hemoglobin A1c % Calcium Magnesium Total Bilirubin AST ALT Alkaline Phosphatase Total Protein Albumin Triglycerides Cholesterol Total LDL Cholesterol HDL Cholesterol Ur Random Creatinine 70.0 Ur Random Sodium COVID-19 (RAMON) Not detected 05/29/20 05/30/20 05/30/20 22:00 06:15 07:05 WBC 5.8 RBC 3.49 L Hgb 10.4 L Hct 30.7 L MCV 88.0 MCH 29.7 MCHC 33.8 RDW 12.2 Plt Count 127 L MPV 8.4 Absolute Neuts (auto) 4.0 Neutrophils % 68.1 Lymphocytes % 17.5 Monocytes % 11.2 H Eosinophils % 3.0 D Basophils % 0.2 Nucleated RBC % 0 Sodium Potassium Chloride Carbon Dioxide Anion Gap BUN Creatinine Est GFR (CKD-EPI)AfAm Est GFR (CKD-EPI)NonAf POC Glucometer 105 Random Glucose Hemoglobin A1c % Calcium Magnesium Total Bilirubin AST ALT Alkaline Phosphatase Total Protein Albumin Triglycerides Cholesterol Total LDL Cholesterol HDL Cholesterol Ur Random Creatinine Ur Random Sodium 130 COVID-19 (RAMON) 05/30/20 05/30/20 05/30/20 07:05 07:05 11:26 WBC RBC Hgb Hct MCV MCH MCHC RDW Plt Count MPV Absolute Neuts (auto) Neutrophils % Lymphocytes % Monocytes % Eosinophils % Basophils % Nucleated RBC % Sodium 143 Potassium 3.6 Chloride 110 H Carbon Dioxide 25 Anion Gap 7 L BUN 13.6 Creatinine 1.2 Est GFR (CKD-EPI)AfAm 58.51 Est GFR (CKD-EPI)NonAf 50.48 POC Glucometer 121 Random Glucose 108 H Hemoglobin A1c % 6.7 H Calcium 8.4 L Magnesium 2.0 Total Bilirubin 0.8 AST 18 ALT 23 Alkaline Phosphatase 100 Total Protein 5.5 L Albumin 2.7 L Triglycerides 104 Cholesterol 137 Total LDL Cholesterol 72 HDL Cholesterol 49 Ur Random Creatinine Ur Random Sodium COVID-19 (RAMON) Active Medications Generic Name Dose Route Start Last Admin Trade Name Freq PRN Reason Stop Dose Admin Atorvastatin Calcium 20 mg 05/29/20 22:00 05/29/20 21:43 Lipitor - PO 20 mg HS HIRAM Administration Heparin Sodium (Porcine) 5,000 unit 05/30/20 10:00 05/30/20 09:35 Heparin - SQ 5,000 unit TID [facility] Administration Ceftriaxone Sodium 2 gm/ 100 mls @ 200 mls/hr 05/29/20 10:00 05/30/20 09:34 Dextrose IVPB 200 mls/hr DAILY [facility] Administration Lactated Ringer's 1,000 ml in 1,000 mls @ 100 mls/hr 05/29/20 13:15 05/30/20 06:45 Lactated Ringers Solution IV 100 mls/hr ASDIR [facility] Administration Insulin Aspart 1 vial 05/28/20 23:15 05/30/20 11:28 Novolog Vial Sliding Scale - SQ Not Given TIDAC [facility] Protocol Lidocaine/Aluminum/Magnesium/Simeth 5 ml 05/30/20 18:00 Magic Mouthwash *Sjr Formula* - MM Q6HPO HIRAM Tamsulosin HCl 0.4 mg 05/31/20 08:30 Flomax - PO DAILY@0830 HIRAM Tramadol HCl 50 mg 05/30/20 12:36 Ultram - PO Q8H PRN PAIN LEVEL 7 - 10 ASSESSMENT/PLAN: Patient is a 55y/o F with significant past medical history of kidney stones, hypertension, hyperlipidemia, sarcoidosis, COPD, and anemia presented with left flank pain for 1 day. #Left nephrolithiasis -CTAP: 0.8cm L UVJ stone -POD 1: cystoscopy, left ureteral stent placement -will continue IV Ceftriaxone -pain control -Urology (Dr. Lancaster) consulted. Recommendations appreciated. #MONY -likely post-obstructive 2/2 kidney stone -IVF hydration -Renal function improving -avoid NSAIDs -Nephrology (Dr. Lu) consulted. #HTN -On home olmesartan -will hold insetting of MONY -BP stable, monitor for now #HLD -Continue Atorvastatin 20mg HS #Hx of Sarcoidosis -On Prednisone intermittently, has been off >1 year -follows up with Dr. Brown -Albuterol ih prn for SOB #Hx of Elevated blood sugar -2/2 to chronic steroid use -will order A1c -hold metformin -ISS and bgm for now #FEN -IV LR @100cc/hr -Electrolytes wnl, routine bmp monitoring -Diabetic diet #Prophylaxis -Heparin 5000u sq tid #Disposition -full code -med surg Visit type - Emergency Visit Emergency Visit: Yes ED Registration Date: 05/28/20 Care time: The patient presented to the Emergency Department on the above date and was hospitalized for further evaluation of their emergent condition. - New Patient This patient is new to me today: No - Critical Care Critical Care patient: No ATTENDING PHYSICIAN STATEMENT I saw and evaluated the patient. I reviewed the resident's note and discussed the case with the resident. I agree with the resident's findings and plan as documented. SUBJECTIVE: OBJECTIVE: ASSESSMENT AND PLAN:
--- NOTE | 2020-05-30 17:43 | PN ---
Teaching Attending Note Name of Resident: Casandra Forrest ATTENDING PHYSICIAN STATEMENT I saw and evaluated the patient. I reviewed the resident's note and discussed the case with the resident. I agree with the resident's findings and plan as documented. SUBJECTIVE: Patient seen and examined at bedside, s/p ESWL for L renal stone, tolerated procedure well. VSS. OBJECTIVE: GENERAL: Awake, alert, and fully oriented, not in distress HEAD: Normal with no signs of trauma. EYES: Pupils equal, round and reactive to light, extraocular movements intact, sclera anicteric, conjunctiva clear. EARS, NOSE, THROAT: Oropharynx clear without exudates. Moist mucous membranes. NECK: No JVD, or masses. LUNGS: Breath sounds equal, clear to auscultation bilaterally. No wheezes, and no crackles. No accessory muscle use. HEART: RRR normal S1 and S2 without murmur, rub or gallop. ABDOMEN: Soft, not distended, tender on left flank, Left CVA tenderness MUSCULOSKELETAL: Normal range of motion at all joints. No CVA tenderness. UPPER EXTREMITIES: 2+ pulses, warm, well-perfused. No peripheral edema. LOWER EXTREMITIES: 2+ pulses, warm, well-perfused. No calf tenderness. No peripheral edema. NEUROLOGICAL: Cranial nerves II-XII intact. Normal speech. PSYCHIATRIC: Cooperative. Good eye contact. Appropriate mood and affect. SKIN: Warm, dry, normal turgor, no rashes or lesions noted. Vital Signs - 24 hr 05/29/20 05/29/20 05/29/20 18:00 21:00 22:00 Temperature 99.1 F 100.6 F H Pulse Rate 94 H 104 H Respiratory 18 20 20 Rate Blood Pressure 136/78 123/75 O2 Sat by Pulse 97 97 97 Oximetry (%) 05/30/20 05/30/20 05/30/20 01:46 05:00 09:00 Temperature 98.3 F 99.2 F 99.3 F Pulse Rate 80 79 86 Respiratory 18 18 18 Rate Blood Pressure 109/63 110/66 134/69 O2 Sat by Pulse 97 95 98 Oximetry (%) 05/30/20 14:00 Temperature 99.1 F Pulse Rate 82 Respiratory 18 Rate Blood Pressure 129/80 O2 Sat by Pulse 96 Oximetry (%) Microbiology 05/29/20 11:19 Urine - Urine, Via Cystoscope Urine Culture - Final NO GROWTH OBTAINED 05/28/20 17:30 Urine - Urine Clean Catch Urine Culture - Final NO GROWTH OBTAINED 05/28/20 05:40 Blood - Peripheral Venous Blood Culture - Preliminary NO GROWTH OBTAINED AFTER 24 HOURS, INCUBATION TO CONTINUE FOR 4 DAYS. 05/28/20 05:40 Blood - Peripheral Venous Blood Culture - Preliminary NO GROWTH OBTAINED AFTER 24 HOURS, INCUBATION TO CONTINUE FOR 4 DAYS. Laboratory Results - last 24 hr 05/29/20 05/29/20 05/29/20 04:56 22:00 22:00 WBC RBC Hgb Hct MCV MCH MCHC RDW Plt Count MPV Absolute Neuts (auto) Neutrophils % Lymphocytes % Monocytes % Eosinophils % Basophils % Nucleated RBC % Sodium Potassium Chloride Carbon Dioxide Anion Gap BUN Creatinine Est GFR (CKD-EPI)AfAm Est GFR (CKD-EPI)NonAf POC Glucometer Random Glucose Hemoglobin A1c % Calcium Magnesium Total Bilirubin AST ALT Alkaline Phosphatase Total Protein Albumin Triglycerides Cholesterol Total LDL Cholesterol HDL Cholesterol Ur Random Creatinine 70.0 Ur Random Sodium 130 COVID-19 (RAMON) Not detected 05/30/20 05/30/20 05/30/20 06:15 07:05 07:05 WBC 5.8 RBC 3.49 L Hgb 10.4 L Hct 30.7 L MCV 88.0 MCH 29.7 MCHC 33.8 RDW 12.2 Plt Count 127 L MPV 8.4 Absolute Neuts (auto) 4.0 Neutrophils % 68.1 Lymphocytes % 17.5 Monocytes % 11.2 H Eosinophils % 3.0 D Basophils % 0.2 Nucleated RBC % 0 Sodium 143 Potassium 3.6 Chloride 110 H Carbon Dioxide 25 Anion Gap 7 L BUN 13.6 Creatinine 1.2 Est GFR (CKD-EPI)AfAm 58.51 Est GFR (CKD-EPI)NonAf 50.48 POC Glucometer 105 Random Glucose 108 H Hemoglobin A1c % Calcium 8.4 L Magnesium 2.0 Total Bilirubin 0.8 AST 18 ALT 23 Alkaline Phosphatase 100 Total Protein 5.5 L Albumin 2.7 L Triglycerides 104 Cholesterol 137 Total LDL Cholesterol 72 HDL Cholesterol 49 Ur Random Creatinine Ur Random Sodium COVID-19 (RAMON) 05/30/20 05/30/20 05/30/20 07:05 11:26 16:43 WBC RBC Hgb Hct MCV MCH MCHC RDW Plt Count MPV Absolute Neuts (auto) Neutrophils % Lymphocytes % Monocytes % Eosinophils % Basophils % Nucleated RBC % Sodium Potassium Chloride Carbon Dioxide Anion Gap BUN Creatinine Est GFR (CKD-EPI)AfAm Est GFR (CKD-EPI)NonAf POC Glucometer 121 97 Random Glucose Hemoglobin A1c % 6.7 H Calcium Magnesium Total Bilirubin AST ALT Alkaline Phosphatase Total Protein Albumin Triglycerides Cholesterol Total LDL Cholesterol HDL Cholesterol Ur Random Creatinine Ur Random Sodium COVID-19 ([facility]ON) Home Medications Medication Instructions Recorded Olmesartan Medoxomil [Benicar -] 20 mg PO HS 05/03/13 Atorvastatin Ca [Lipitor] 20 mg PO HS 01/08/15 Cholecalciferol (Vitamin D3) 1,000 unit PO HS 08/20/15 [Vitamin D3] Metformin HCl [Glucophage] 500 mg PO HS 11/23/19 Rizatriptan Benzoate [Rizatriptan] 5 mg PO PRN PRN 11/23/19 Current Medications Generic Name Dose Route Start Last Admin Trade Name Freq PRN Reason Stop Dose Admin Atorvastatin Calcium 20 mg 05/29/20 22:00 05/29/20 21:43 Lipitor - PO 20 mg HS HIRAM Administration Heparin Sodium (Porcine) 5,000 unit 05/30/20 10:00 05/30/20 14:45 Heparin - SQ 5,000 unit TID HIRAM Administration Ceftriaxone Sodium 2 gm/ 100 mls @ 200 mls/hr 05/29/20 10:00 05/30/20 09:34 Dextrose IVPB 200 mls/hr DAILY HIRAM Administration Lactated Ringer's 1,000 ml in 1,000 mls @ 100 mls/hr 05/29/20 13:15 05/30/20 06:45 Lactated Ringers Solution IV 100 mls/hr ASDIR [facility] Administration Insulin Aspart 1 vial 05/28/20 23:15 05/30/20 17:09 Novolog Vial Sliding Scale - SQ Not Given TIDAC [facility] Protocol Lidocaine/Aluminum/Magnesium/Simeth 5 ml 05/30/20 18:00 Magic Mouthwash *Sjr Formula* - MM Q6HPO [facility] Tamsulosin HCl 0.4 mg 05/31/20 08:30 Flomax - PO DAILY@0830 HIRAM Tramadol HCl 50 mg 05/30/20 12:36 Ultram - PO Q8H PRN PAIN LEVEL 7 - 10 ASSESSMENT AND PLAN: 55 F L renal stone s/p ESWL MONY Obesity HTN HLD T2DM Plan: Cont. aggressive IV/PO hydration, Magic mouthwash PRN for throat pain (likely 2/2 LMA from procedure) Urology following Tylenol PRN for pain Cont. Rocephin for UTI, follow cx DVT ppx: Heparin SC
[2020-05-30] MEDS ORDERED: PT OWN MED DRAWER 7, Y5N ONE (18:37)
[2020-05-30] MEDS: MAG HYDROX/ALH/SMC/DPHA/LIDO 240 ML MOUTHWASH MM SCH ×2 (18:41→23:28)
[2020-05-30 20:49] LABS: EPI CELLS 23 /uL (0-25.1); HYALINE CASTS 1 /uL (0-3.1); PH,URINE 5.5 (5.0-8.0); URINE APPEARANCE CLOUDY; URINE BACTERIA 8 /uL (0-1359); URINE BILIRUBIN NEGATIVE (NEGATIVE); URINE COLOR ORANGE; URINE GLUCOSE (UA) NEGATIVE (NEGATIVE); URINE KETONE NEGATIVE (NEGATIVE); URINE LEUK ESTERASE 1+ (NEGATIVE); URINE NITRITE NEGATIVE (NEGATIVE); URINE PROTEIN 2+ (NEGATIVE); URINE RBC 14158 /uL (0-23.9); URINE WBC 101 /uL (0-25.8)
[2020-05-30] MEDS: ATORVASTATIN CA 20 MG TABLET (FP) PO SCH (21:10)
[2020-05-31] MEDS: MAG HYDROX/ALH/SMC/DPHA/LIDO 240 ML MOUTHWASH MM SCH ×3 (05:35→17:24)
[2020-05-31] MEDS: HEPARIN NA (PORCINE) 5,000 UNITS/ML 1ML VIAL SQ SCH ×3 (05:35→21:03)
[2020-05-31] MEDS: INSULIN SLIDING SCALE (NOVOLOG) 1 VIAL SQ SCH ×3 (06:13→17:23)
[2020-05-31 09:00] LABS: BASO % 0.3 % (0-2.0); EOS % 4.7 % (0-4.5); HEMATOCRIT 30.3 % (32.4-45.2); HEMOGLOBIN 10.1 GM/dL (10.7-15.3); MCH 29.3 pg (25.7-33.7); MCHC 33.5 g/dl (32.0-36.0); MEAN CELL VOLUME 87.5 fl (80-96); MEAN PLT VOLUME 8.7 fl (7.5-11.1); MONO % 11.2 % (3.8-10.2); NEUT % 53.8 % (42.8-82.8); PLATELET COUNT 134 K/MM3 (134-434); RBC 3.46 M/mm3 (3.60-5.2); RDW 12.6 % (11.6-15.6)
[2020-05-31] MEDS ORDERED: DEXTROSE 5%-WATER 100 ML IVPB ONE (09:04)
[2020-05-31] MEDS: CEFTRIAXONE 2 GM in DEXTROSE 5%-WATER 100 ML IVPB SCH (09:06)
[2020-05-31 09:26] LABS: ALBUMIN 2.8 g/dl (3.4-5.0); BILIRUBIN,TOTAL 0.3 mg/dL (0.2-1); CALCIUM 8.4 mg/dL (8.5-10.1); CREATININE 1.2 mg/dL (0.55-1.3); POTASSIUM 3.7 mmol/L (3.5-5.1); TOT PROT 5.6 g/dl (6.4-8.2)
[2020-05-31] MEDS: TAMSULOSIN HCL 0.4 MG CAP PO SCH (09:54)
[2020-05-31] MEDS ORDERED: ACETAMINOPHEN 325 MG TABLET (FP) PO PRN (10:02)
[2020-05-31] MEDS: ACETAMINOPHEN 325 MG TABLET (FP) PO PRN ×2 (12:32→20:55)
[2020-05-31] MEDS ORDERED: LACTATED RINGERS SOLUTION 1,000 ML/1,000 ML INFUS.BAG IV SCH (14:41)
--- NOTE | 2020-05-31 14:41 | PN ---
Progress Note, Physician History of Present Illness: Pt seen and examined at bedside. SHe is awake and alert. - Current Medication List Current Medications: Active Medications Acetaminophen (Tylenol -) 650 mg PO Q6H PRN PRN Reason: Fever Last Admin: 05/31/20 12:32 Dose: 650 mg Documented by: Acetaminophen (Tylenol -) 650 mg PO Q6H PRN PRN Reason: PAIN Atorvastatin Calcium (Lipitor -) 20 mg PO [facility] Last Admin: 05/30/20 21:10 Dose: 20 mg Documented by: Heparin Sodium (Porcine) (Heparin -) 5,000 unit SQ TID [facility] Last Admin: 05/31/20 13:08 Dose: 5,000 unit Documented by: Ceftriaxone Sodium 2 gm/ (Dextrose) 100 mls @ 200 mls/hr IVPB DAILY [facility] Last Admin: 05/31/20 09:06 Dose: 200 mls/hr Documented by: Lactated Ringer's (Lactated Ringers Solution) 1,000 ml in 1,000 mls @ 100 mls/hr IV ASDIR [facility] Last Admin: 05/30/20 18:01 Dose: 100 mls/hr Documented by: Insulin Aspart (Novolog Vial Sliding Scale -) 1 vial SQ TIDAC [facility]; Protocol Last Admin: 05/31/20 11:41 Dose: Not Given Documented by: Lidocaine/Aluminum/Magnesium/Simeth (Magic Mouthwash *Sjr Formula* -) 5 ml MM Q6HPO [facility] Last Admin: 05/31/20 11:39 Dose: 5 ml Documented by: Losartan Potassium (Cozaar -) 50 mg PO [facility] Tamsulosin HCl (Flomax -) 0.4 mg PO DAILY@0830 [facility] Last Admin: 05/31/20 09:54 Dose: 0.4 mg Documented by: Tramadol HCl (Ultram -) 50 mg PO Q8H PRN PRN Reason: PAIN LEVEL 7 - 10 Last Admin: 05/31/20 03:33 Dose: 50 mg Documented by: - Objective Vital Signs: Vital Signs Temperature 99.3 F 05/31/20 10:05 Pulse Rate 83 05/31/20 10:05 Respiratory Rate 20 05/31/20 10:05 Blood Pressure 126/76 05/31/20 10:05 O2 Sat by Pulse Oximetry (%) 97 05/31/20 10:05 Constitutional: Yes: Calm Eyes: Yes: Conjunctiva Clear HENT: Yes: Atraumatic Neck: Yes: Supple Cardiovascular: Yes: S1, S2 Respiratory: Yes: CTA Bilaterally Gastrointestinal: Yes: Soft Genitourinary: Yes: WNL Musculoskeletal: Yes: WNL Edema: No Integumentary: Yes: WNL Neurological: Yes: Oriented Psychiatric: Yes: Oriented Labs: CBC, BMP 05/31/20 07:20 05/31/20 07:20 Problem List - Problems (1) Renal colic on left side Code(s): N23 - UNSPECIFIED RENAL COLIC (2) Acute kidney injury Code(s): N17.9 - ACUTE KIDNEY FAILURE, UNSPECIFIED Assessment/Plan Current Medications Generic Name Dose Route Start Last Admin Trade Name Freq PRN Reason Stop Dose Admin Acetaminophen 650 mg 05/31/20 09:57 05/31/20 12:32 Tylenol - PO 650 mg Q6H PRN Administration Fever Acetaminophen 650 mg 05/31/20 10:02 Tylenol - PO Q6H PRN PAIN Atorvastatin Calcium 20 mg 05/29/20 22:00 05/30/20 21:10 Lipitor - PO 20 mg HS [facility] Administration Heparin Sodium (Porcine) 5,000 unit 05/30/20 10:00 05/31/20 13:08 Heparin - SQ 5,000 unit TID [facility] Administration Ceftriaxone Sodium 2 gm/ 100 mls @ 200 mls/hr 05/29/20 10:00 05/31/20 09:06 Dextrose IVPB 200 mls/hr DAILY [facility] Administration Lactated Ringer's 1,000 ml in 1,000 mls @ 100 mls/hr 05/29/20 13:15 05/30/20 18:01 Lactated Ringers Solution IV 100 mls/hr ASDIR [facility] Administration Insulin Aspart 1 vial 05/28/20 23:15 05/31/20 11:41 Novolog Vial Sliding Scale - SQ Not Given TIDAC [facility] Protocol Lidocaine/Aluminum/Magnesium/Simeth 5 ml 05/30/20 18:00 05/31/20 11:39 Magic Mouthwash *Sjr Formula* - MM 5 ml Q6HPO [facility] Administration Losartan Potassium 50 mg 05/31/20 22:00 Cozaar - PO HS [facility] Tamsulosin HCl 0.4 mg 05/31/20 08:30 05/31/20 09:54 Flomax - PO 0.4 mg DAILY@0830 [facility] Administration Tramadol HCl 50 mg 05/30/20 12:36 05/31/20 03:33 Ultram - PO 50 mg Q8H PRN Administration PAIN LEVEL 7 - 10 Impression 1. MONY 2. sarcoidosis 3. HTN 4. hyperlipidemia 5. cough 6. hx of anemia 7. nephrolithiasis 8. left adrenal adenoma 9. left hydro Plan - can decrease rate of fluids - repeat labs in am - urology follow up - renal function improved - avoid nsaids - will follow pt
--- NOTE | 2020-05-31 18:35 | PN ---
Physical Exam: SUBJECTIVE: Patient seen and examined. STill with left flank pain. No dysuria. No fevers. OBJECTIVE: Vital Signs Temperature 98.0 F 05/31/20 18:00 Pulse Rate 69 05/31/20 18:00 Respiratory Rate 20 05/31/20 18:00 Blood Pressure 130/84 05/31/20 18:00 O2 Sat by Pulse Oximetry (%) 98 05/31/20 18:00 GENERAL: The patient is awake, alert, and fully oriented, in no acute distress. NECK: Trachea midline, full range of motion, supple. LUNGS: Breath sounds equal, clear to auscultation bilaterally HEART: Regular rate and rhythm, S1, S2 without murmur, rub or gallop. ABDOMEN: Soft, nontender, nondistended, normoactive bowel sounds EXTREMITIES: 2+ pulses, warm, well-perfused, no edema. NEUROLOGICAL: Cranial nerves II through XII grossly intact. Normal speech PSYCH: Normal mood, normal affect. SKIN: Warm, dry, normal turgor Laboratory Results - last 24 hr 05/30/20 05/31/20 05/31/20 20:00 06:12 07:20 WBC 4.0 RBC 3.46 L Hgb 10.1 L Hct 30.3 L MCV 87.5 MCH 29.3 MCHC 33.5 RDW 12.6 Plt Count 134 MPV 8.7 Absolute Neuts (auto) 2.1 Neutrophils % 53.8 D Lymphocytes % 30.0 D Monocytes % 11.2 H Eosinophils % 4.7 H Basophils % 0.3 Nucleated RBC % 0 Sodium Potassium Chloride Carbon Dioxide Anion Gap BUN Creatinine Est GFR (CKD-EPI)AfAm Est GFR (CKD-EPI)NonAf POC Glucometer 111 Random Glucose Calcium Magnesium Total Bilirubin AST ALT Alkaline Phosphatase Total Protein Albumin Urine Color [place] Urine Appearance Cloudy Urine pH 5.5 Ur Specific [place] 1.026 Urine Protein 2+ H Urine Glucose (UA) Negative Urine Ketones Negative Urine Blood 3+ H Urine Nitrite Negative Urine Bilirubin Negative Urine Urobilinogen 1.0 Ur Leukocyte Esterase 1+ H Urine WBC (Auto) 101 Urine RBC (Auto) 31632 Urine Casts (Auto) 1 U Epithel Cells (Auto) 23 Urine Bacteria (Auto) 8 05/31/20 05/31/20 05/31/20 07:20 11:40 17:18 WBC RBC Hgb Hct MCV MCH MCHC RDW Plt Count MPV Absolute Neuts (auto) Neutrophils % Lymphocytes % Monocytes % Eosinophils % Basophils % Nucleated RBC % Sodium 144 Potassium 3.7 Chloride 109 H Carbon Dioxide 26 Anion Gap 10 BUN 16.0 Creatinine 1.2 Est GFR (CKD-EPI)AfAm 58.51 Est GFR (CKD-EPI)NonAf 50.48 POC Glucometer 92 107 Random Glucose 99 Calcium 8.4 L Magnesium 2.0 Total Bilirubin 0.3 AST 30 ALT 38 Alkaline Phosphatase 110 Total Protein 5.6 L Albumin 2.8 L Urine Color Urine Appearance Urine pH Ur Specific [place] Urine Protein Urine Glucose (UA) Urine Ketones Urine Blood Urine Nitrite Urine Bilirubin Urine Urobilinogen Ur Leukocyte Esterase Urine WBC (Auto) Urine RBC (Auto) Urine Casts (Auto) U Epithel Cells (Auto) Urine Bacteria (Auto) Active Medications Generic Name Dose Route Start Last Admin Trade Name Freq PRN Reason Stop Dose Admin Acetaminophen 650 mg 05/31/20 09:57 05/31/20 12:32 Tylenol - PO 650 mg Q6H PRN Administration Fever Acetaminophen 650 mg 05/31/20 10:02 Tylenol - PO Q6H PRN PAIN Atorvastatin Calcium 20 mg 05/29/20 22:00 05/30/20 21:10 Lipitor - PO 20 mg HS [facility]AM Administration Heparin Sodium (Porcine) 5,000 unit 05/30/20 10:00 05/31/20 13:08 Heparin - SQ 5,000 unit TID [facility] Administration Ceftriaxone Sodium 2 gm/ 100 mls @ 200 mls/hr 05/29/20 10:00 05/31/20 09:06 Dextrose IVPB 200 mls/hr DAILY [facility] Administration Lactated Ringer's 1,000 ml in 1,000 mls @ 50 mls/hr 05/31/20 14:41 05/31/20 17:24 Lactated Ringers Solution IV 50 mls/hr ASDIR [facility] Administration Insulin Aspart 1 vial 05/28/20 23:15 05/31/20 17:23 Novolog Vial Sliding Scale - SQ Not Given TIDAC [facility] Protocol Lidocaine/Aluminum/Magnesium/Simeth 5 ml 05/30/20 18:00 05/31/20 17:24 Magic Mouthwash *Sjr Formula* - MM 5 ml Q6HPO [facility] Administration Losartan Potassium 50 mg 05/31/20 22:00 Cozaar - PO HS [facility] Tamsulosin HCl 0.4 mg 05/31/20 08:30 05/31/20 09:54 Flomax - PO 0.4 mg DAILY@0830 [facility] Administration Tramadol HCl 50 mg 05/30/20 12:36 05/31/20 03:33 Ultram - PO 50 mg Q8H PRN Administration PAIN LEVEL 7 - 10 ASSESSMENT/PLAN: Patient is a 55y/o F with significant past medical history of kidney stones, hypertension, hyperlipidemia, sarcoidosis, COPD, and anemia presented with left flank pain for 1 day. #Left nephrolithiasis -CTAP: 0.8cm L UVJ stone -POD 2: cystoscopy, left ureteral stent placement -will continue IV Ceftriaxone -pain control -Urology (Dr. Lancaster) consulted. Recommendations appreciated. #MONY -likely post-obstructive 2/2 kidney stone -Renal function improved -gentle IVF hydration -avoid NSAIDs -Nephrology (Dr. Lu) consulted. #HTN -On home olmesartan #HLD -Continue Atorvastatin 20mg HS #Hx of Sarcoidosis -On Prednisone intermittently, has been off >1 year -follows up with Dr. Brown -Albuterol ih prn for SOB #Hx of Elevated blood sugar -2/2 to chronic steroid use -A1c 6.7 -hold metformin -ISS and bgm for now #FEN -IV LR @50cc/hr -Electrolytes wnl, routine bmp monitoring -Diabetic diet #Prophylaxis -Heparin 5000u sq tid #Disposition -full code -med surg Visit type - Emergency Visit Emergency Visit: Yes ED Registration Date: 05/28/20 Care time: The patient presented to the Emergency Department on the above date and was hospitalized for further evaluation of their emergent condition. - New Patient This patient is new to me today: No - Critical Care Critical Care patient: No ATTENDING PHYSICIAN STATEMENT I saw and evaluated the patient. I reviewed the resident's note and discussed the case with the resident. I agree with the resident's findings and plan as documented. SUBJECTIVE: OBJECTIVE: ASSESSMENT AND PLAN:
--- NOTE | 2020-05-31 18:44 | PN ---
Teaching Attending Note Name of Resident: Casandra Forrest ATTENDING PHYSICIAN STATEMENT I saw and evaluated the patient. I reviewed the resident's note and discussed the case with the resident. I agree with the resident's findings and plan as documented. SUBJECTIVE: Patient seen and examined at bedside, s/p stent placement for L renal stone, tolerated procedure well. VSS. OBJECTIVE: GENERAL: Awake, alert, and fully oriented, not in distress HEAD: Normal with no signs of trauma. EYES: Pupils equal, round and reactive to light, extraocular movements intact, sclera anicteric, conjunctiva clear. EARS, NOSE, THROAT: Oropharynx clear without exudates. Moist mucous membranes. NECK: No JVD, or masses. LUNGS: Breath sounds equal, clear to auscultation bilaterally. No wheezes, and no crackles. No accessory muscle use. HEART: RRR normal S1 and S2 without murmur, rub or gallop. ABDOMEN: Soft, not distended, tender on left flank, Left CVA tenderness MUSCULOSKELETAL: Normal range of motion at all joints. No CVA tenderness. UPPER EXTREMITIES: 2+ pulses, warm, well-perfused. No peripheral edema. LOWER EXTREMITIES: 2+ pulses, warm, well-perfused. No calf tenderness. No peripheral edema. NEUROLOGICAL: Cranial nerves II-XII intact. Normal speech. PSYCHIATRIC: Cooperative. Good eye contact. Appropriate mood and affect. SKIN: Warm, dry, normal turgor, no rashes or lesions noted. Vital Signs - 24 hr 05/30/20 05/31/20 05/31/20 21:13 05:00 10:05 Temperature 99 F 99.3 F Pulse Rate 70 82 83 Respiratory 18 18 20 Rate Blood Pressure 127/70 100/40 L 126/76 O2 Sat by Pulse 99 93 L 97 Oximetry (%) 05/31/20 05/31/20 14:00 18:00 Temperature 98.5 F 98.0 F Pulse Rate 75 69 Respiratory 20 20 Rate Blood Pressure 133/81 130/84 O2 Sat by Pulse 97 98 Oximetry (%) Microbiology 05/28/20 05:40 Blood - Peripheral Venous Blood Culture - Preliminary NO GROWTH OBTAINED AFTER 48 HOURS, INCUBATION TO CONTINUE FOR 3 DAYS. 05/28/20 05:40 Blood - Peripheral Venous Blood Culture - Preliminary NO GROWTH OBTAINED AFTER 48 HOURS, INCUBATION TO CONTINUE FOR 3 DAYS. 05/29/20 11:19 Urine - Urine, Via Cystoscope Urine Culture - Final NO GROWTH OBTAINED 05/28/20 17:30 Urine - Urine Clean Catch Urine Culture - Final NO GROWTH OBTAINED Laboratory Results - last 24 hr 05/30/20 05/31/20 05/31/20 20:00 06:12 07:20 WBC 4.0 RBC 3.46 L Hgb 10.1 L Hct 30.3 L MCV 87.5 MCH 29.3 MCHC 33.5 RDW 12.6 Plt Count 134 MPV 8.7 Absolute Neuts (auto) 2.1 Neutrophils % 53.8 D Lymphocytes % 30.0 D Monocytes % 11.2 H Eosinophils % 4.7 H Basophils % 0.3 Nucleated RBC % 0 Sodium Potassium Chloride Carbon Dioxide Anion Gap BUN Creatinine Est GFR (CKD-EPI)AfAm Est GFR (CKD-EPI)NonAf POC Glucometer 111 Random Glucose Calcium Magnesium Total Bilirubin AST ALT Alkaline Phosphatase Total Protein Albumin Urine Color [place] Urine Appearance Cloudy Urine pH 5.5 Ur Specific [place] 1.026 Urine Protein 2+ H Urine Glucose (UA) Negative Urine Ketones Negative Urine Blood 3+ H Urine Nitrite Negative Urine Bilirubin Negative Urine Urobilinogen 1.0 Ur Leukocyte Esterase 1+ H Urine WBC (Auto) 101 Urine RBC (Auto) 06360 Urine Casts (Auto) 1 U Epithel Cells (Auto) 23 Urine Bacteria (Auto) 8 05/31/20 05/31/20 05/31/20 07:20 11:40 17:18 WBC RBC Hgb Hct MCV MCH MCHC RDW Plt Count MPV Absolute Neuts (auto) Neutrophils % Lymphocytes % Monocytes % Eosinophils % Basophils % Nucleated RBC % Sodium 144 Potassium 3.7 Chloride 109 H Carbon Dioxide 26 Anion Gap 10 BUN 16.0 Creatinine 1.2 Est GFR (CKD-EPI)AfAm 58.51 Est GFR (CKD-EPI)NonAf 50.48 POC Glucometer 92 107 Random Glucose 99 Calcium 8.4 L Magnesium 2.0 Total Bilirubin 0.3 AST 30 ALT 38 Alkaline Phosphatase 110 Total Protein 5.6 L Albumin 2.8 L Urine Color Urine Appearance Urine pH Ur Specific [place] Urine Protein Urine Glucose (UA) Urine Ketones Urine Blood Urine Nitrite Urine Bilirubin Urine Urobilinogen Ur Leukocyte Esterase Urine WBC (Auto) Urine RBC (Auto) Urine Casts (Auto) U Epithel Cells (Auto) Urine Bacteria (Auto) Home Medications Medication Instructions Recorded Olmesartan Medoxomil [Benicar -] 20 mg PO HS 05/03/13 Atorvastatin Ca [Lipitor] 20 mg PO HS 01/08/15 Cholecalciferol (Vitamin D3) 1,000 unit PO HS 08/20/15 [Vitamin D3] Metformin HCl [Glucophage] 500 mg PO HS 11/23/19 Rizatriptan Benzoate [Rizatriptan] 5 mg PO PRN PRN 11/23/19 Current Medications Generic Name Dose Route Start Last Admin Trade Name Freq PRN Reason Stop Dose Admin Acetaminophen 650 mg 05/31/20 09:57 05/31/20 12:32 Tylenol - PO 650 mg Q6H PRN Administration Fever Acetaminophen 650 mg 05/31/20 10:02 Tylenol - PO Q6H PRN PAIN Atorvastatin Calcium 20 mg 05/29/20 22:00 05/30/20 21:10 Lipitor - PO 20 mg HS HIRAM Administration Heparin Sodium (Porcine) 5,000 unit 05/30/20 10:00 05/31/20 13:08 Heparin - SQ 5,000 unit TID [facility] Administration Ceftriaxone Sodium 2 gm/ 100 mls @ 200 mls/hr 05/29/20 10:00 05/31/20 09:06 Dextrose IVPB 200 mls/hr DAILY [facility] Administration Lactated Ringer's 1,000 ml in 1,000 mls @ 50 mls/hr 05/31/20 14:41 05/31/20 17:24 Lactated Ringers Solution IV 50 mls/hr ASDIR [facility] Administration Insulin Aspart 1 vial 05/28/20 23:15 05/31/20 17:23 Novolog Vial Sliding Scale - SQ Not Given [facility] Protocol Lidocaine/Aluminum/Magnesium/Simeth 5 ml 05/30/20 18:00 05/31/20 17:24 Magic Mouthwash *Sjr Formula* - MM 5 ml Q6HPO [facility]AM Administration Losartan Potassium 50 mg 05/31/20 22:00 Cozaar - PO HS [facility] Tamsulosin HCl 0.4 mg 05/31/20 08:30 05/31/20 09:54 Flomax - PO 0.4 mg DAILY@0830 [facility] Administration Tramadol HCl 50 mg 05/30/20 12:36 05/31/20 03:33 Ultram - PO 50 mg Q8H PRN Administration PAIN LEVEL 7 - 10 ASSESSMENT AND PLAN: 55 F L renal stone s/p L JJ stent MONY Obesity HTN HLD T2DM Plan: Cont. aggressive IV/PO hydration, watch for stone passage Urology following Tylenol PRN for pain Cont. Rocephin for UTI, follow cx, cont. Flomax DC in AM DVT ppx: Heparin SC
[2020-05-31] MEDS: ATORVASTATIN CA 20 MG TABLET (FP) PO SCH (21:03)
[2020-05-31] MEDS ORDERED: LOSARTAN POTASSIUM 50 MG TABLET (FP) PO SCH (22:00)
[2020-06-01] MEDS: MAG HYDROX/ALH/SMC/DPHA/LIDO 240 ML MOUTHWASH MM SCH ×3 (00:49→12:14)
[2020-06-01] MEDS: HEPARIN NA (PORCINE) 5,000 UNITS/ML 1ML VIAL SQ SCH ×2 (06:24→06:38)
[2020-06-01] MEDS: INSULIN SLIDING SCALE (NOVOLOG) 1 VIAL SQ SCH ×2 (06:24→12:09)
[2020-06-01 08:34] LABS: BASO % 0.5 % (0-2.0); EOS % 5.7 % (0-4.5); HEMATOCRIT 31.5 % (32.4-45.2); HEMOGLOBIN 10.8 GM/dL (10.7-15.3); LYMPH % 32.8 % (8-40); MCH 29.8 pg (25.7-33.7); MCHC 34.2 g/dl (32.0-36.0); MEAN CELL VOLUME 87.1 fl (80-96); MEAN PLT VOLUME 8.7 fl (7.5-11.1); MONO % 13.3 % (3.8-10.2); NEUT % 47.7 % (42.8-82.8); PLATELET COUNT 134 K/MM3 (134-434); RBC 3.62 M/mm3 (3.60-5.2); RDW 12.7 % (11.6-15.6); WHITE BLOOD COUNT 3.6 K/mm3 (4.0-10.0)
[2020-06-01 08:46] LABS: BILIRUBIN,TOTAL 0.4 mg/dL (0.2-1); BLOOD UREA NITROGEN 15.4 mg/dL (7-18); CALCIUM 8.6 mg/dL (8.5-10.1); CREATININE 1.1 mg/dL (0.55-1.3); POTASSIUM 3.8 mmol/L (3.5-5.1)
[2020-06-01] MEDS ORDERED: DEXTROSE 5%-WATER 100 ML IVPB ONE (10:07)
[2020-06-01] MEDS: CEFTRIAXONE 2 GM in DEXTROSE 5%-WATER 100 ML IVPB SCH (10:14)
[2020-06-01] MEDS: TAMSULOSIN HCL 0.4 MG CAP PO SCH (10:14)
--- NOTE | 2020-06-01 10:22 | PN ---
Progress Note (short form) - Note Progress Note: Afebrile VSS patient reports passing stone fragments overnight Problem List - Problems (1) Renal colic, bilateral Assessment/Plan: S/P ureteral stent. ok to discharge and follow up in office next week with Dr. Lancaster [phone] Code(s): N23 - UNSPECIFIED RENAL COLIC
[2020-06-01 11:23] VITALS: BP 140/84; PULSE 84; TEMP 98.1
[2020-06-01] MEDS: ACETAMINOPHEN 325 MG TABLET (FP) PO PRN (12:46)
--- NOTE | 2020-06-01 13:31 | DS ---
Physical Exam: SUBJECTIVE: Patient seen and examined. No acute events overnight. OBJECTIVE: Vital Signs Temperature 98.1 F 06/01/20 10:00 Pulse Rate 84 06/01/20 10:00 Respiratory Rate 18 06/01/20 10:00 Blood Pressure 140/84 06/01/20 10:00 O2 Sat by Pulse Oximetry (%) 95 06/01/20 10:00 PHYSICAL EXAM GENERAL: The patient is awake, alert, and fully oriented, in no acute distress. NECK: Trachea midline, full range of motion, supple. LUNGS: Breath sounds equal, clear to auscultation bilaterally HEART: Regular rate and rhythm, S1, S2 without murmur, rub or gallop. ABDOMEN: Soft, nontender, nondistended, normoactive bowel sounds EXTREMITIES: 2+ pulses, warm, well-perfused, no edema. NEUROLOGICAL: Cranial nerves II through XII grossly intact. Normal speech PSYCH: Normal mood, normal affect. SKIN: Warm, dry, normal turgor LABS Laboratory Results - last 24 hr 05/31/20 06/01/20 06/01/20 17:18 06:23 07:25 WBC 3.6 L RBC 3.62 Hgb 10.8 Hct 31.5 L MCV 87.1 MCH 29.8 MCHC 34.2 RDW 12.7 Plt Count 134 MPV 8.7 Absolute Neuts (auto) 1.7 Neutrophils % 47.7 Lymphocytes % 32.8 Monocytes % 13.3 H Eosinophils % 5.7 H Basophils % 0.5 Nucleated RBC % 0 Sodium Potassium Chloride Carbon Dioxide Anion Gap BUN Creatinine Est GFR (CKD-EPI)AfAm Est GFR (CKD-EPI)NonAf POC Glucometer 107 92 Random Glucose Calcium Total Bilirubin AST ALT Alkaline Phosphatase Total Protein Albumin 06/01/20 06/01/20 07:25 11:50 WBC RBC Hgb Hct MCV MCH MCHC RDW Plt Count MPV Absolute Neuts (auto) Neutrophils % Lymphocytes % Monocytes % Eosinophils % Basophils % Nucleated RBC % Sodium 143 Potassium 3.8 Chloride 109 H Carbon Dioxide 30 Anion Gap 4 L BUN 15.4 Creatinine 1.1 Est GFR (CKD-EPI)AfAm 65.00 Est GFR (CKD-EPI)NonAf 56.08 POC Glucometer 108 Random Glucose 92 Calcium 8.6 Total Bilirubin 0.4 AST 29 ALT 47 Alkaline Phosphatase 124 H Total Protein 6.0 L Albumin 3.0 L HOSPITAL COURSE: Date of Admission:05/28/20 Date of Discharge: 06/01/20 Patient is a 55y/o F with significant past medical history of kidney stones, hypertension, hyperlipidemia, sarcoidosis, COPD, and anemia presented with left flank pain for 1 day. Patient was found to have an 8mm Left UVJ stone on CT scan. Patient was seen by urology and she subsequently underwent cystoscopy, left ureteral stent placement. Patient reportedly passed the stone on 2nd post- op day. Patient was also found to have MONY on admission, which subsequently resolved with IVF and stent placement. Patient completed 5 days of IV Ceftriaxone. Patient was discharged with instructions to follow up with urology. Minutes to complete discharge: 36 Discharge Summary Problems reviewed: Yes Reason For Visit: OTHER OBSTRUCTIVE DEFECTS OF RENAL PELVIS AND Current Active Problems Renal colic on left side (Acute) UTI (urinary tract infection), bacterial (Acute) Condition: Improved - Instructions Diet, Activity, Other Instructions: Your visit You were admitted to the hospital because you had flank pain. You were found to have left kidney stone. You were evaluated by the urologist and you underwent surgery, where a stent was placed in the urinary tract to help with the passage of the stone. Please follow up with Dr. Lancaster for further management. Medications Please continue your home medications. Follow up Please follow up with your primary care doctor within 1 week. Please follow up with the urologist (Dr. Lancaster) in 1 week. Additional info Please call 911 or go to the ED if with any worsening fevers, chills, headache, dizziness, chest pain, shortness of breath, belly pain, diarrhea, or any new concerns noted. Referrals: Carlton Brown MD [Staff Physician] - Clark Lancaster MD., MD [Staff Physician] - 06/04/20 Delmis Wang MD [Primary Care Provider] - Disposition: HOME - Home Medications Comprehensive Discharge Medication List: Ambulatory Orders Olmesartan Medoxomil [Benicar -] 20 mg PO HS 05/03/13 Atorvastatin Ca [Lipitor] 20 mg PO HS 01/08/15 Cholecalciferol (Vitamin D3) [Vitamin D3] 1,000 unit PO HS 08/20/15 Metformin HCl [Glucophage] 500 mg PO HS 11/23/19 Rizatriptan Benzoate [Rizatriptan] 5 mg PO PRN PRN 11/23/19 This patient is new to me today: No Emergency Visit: Yes ED Registration Date: 05/28/20 Care time: The patient presented to the Emergency Department on the above date and was hospitalized for further evaluation of their emergent condition. Critical Care patient: No - Discharge Referral Referred to [facility] No ATTENDING PHYSICIAN STATEMENT I saw and evaluated the patient. I reviewed the resident's note and discussed the case with the resident. I agree with the resident's findings and plan as documented. SUBJECTIVE: OBJECTIVE: ASSESSMENT AND PLAN:
--- NOTE | 2020-06-04 18:03 | PN ---
Teaching Attending Note Name of Resident: Casandra Forrest ATTENDING PHYSICIAN STATEMENT I saw and evaluated the patient. I reviewed the resident's note and discussed the case with the resident. I agree with the resident's findings and plan as documented. SUBJECTIVE: Patient seen and examined at bedside, s/p stent placement for L renal stone, stable for DC today w/ OP Urology follow up. OBJECTIVE: GENERAL: Awake, alert, and fully oriented, not in distress HEAD: Normal with no signs of trauma. EYES: Pupils equal, round and reactive to light, extraocular movements intact, sclera anicteric, conjunctiva clear. EARS, NOSE, THROAT: Oropharynx clear without exudates. Moist mucous membranes. NECK: No JVD, or masses. LUNGS: Breath sounds equal, clear to auscultation bilaterally. No wheezes, and no crackles. No accessory muscle use. HEART: RRR normal S1 and S2 without murmur, rub or gallop. ABDOMEN: Soft, not distended, tender on left flank, no CVA tenderness MUSCULOSKELETAL: Normal range of motion at all joints. No CVA tenderness. UPPER EXTREMITIES: 2+ pulses, warm, well-perfused. No peripheral edema. LOWER EXTREMITIES: 2+ pulses, warm, well-perfused. No calf tenderness. No peripheral edema. NEUROLOGICAL: Cranial nerves II-XII intact. Normal speech. PSYCHIATRIC: Cooperative. Good eye contact. Appropriate mood and affect. SKIN: Warm, dry, normal turgor, no rashes or lesions noted. Microbiology 05/28/20 05:40 Blood - Peripheral Venous Blood Culture - Final NO GROWTH AFTER 5 DAYS INCUBATION 05/28/20 05:40 Blood - Peripheral Venous Blood Culture - Final NO GROWTH AFTER 5 DAYS INCUBATION 05/29/20 11:19 Urine - Urine, Via Cystoscope Urine Culture - Final NO GROWTH OBTAINED 05/28/20 17:30 Urine - Urine Clean Catch Urine Culture - Final NO GROWTH OBTAINED Laboratory Tests 05/28/20 05/28/20 05/28/20 17:25 17:25 17:30 WBC 7.7 RBC 4.30 Hgb 12.7 Hct 38.1 MCV 88.6 MCH 29.6 MCHC 33.4 RDW 12.7 Plt Count 154 MPV 8.6 Absolute Neuts (auto) Neutrophils % Lymphocytes % Monocytes % Eosinophils % Basophils % Nucleated RBC % Sodium 143 Potassium 4.1 Chloride 111 H Carbon Dioxide 23 Anion Gap 9 BUN 19.5 H Creatinine 1.5 H Est GFR (CKD-EPI)AfAm 44.67 Est GFR (CKD-EPI)NonAf 38.54 POC Glucometer Random Glucose 145 H Hemoglobin A1c % Calcium 9.4 Phosphorus Magnesium Total Bilirubin 0.2 AST 20 ALT 28 Alkaline Phosphatase 128 H Total Protein 7.3 Albumin 3.8 Triglycerides Cholesterol Total LDL Cholesterol HDL Cholesterol Urine Color Yellow Urine Appearance Cloudy Urine pH 5.0 Ur Specific [place] 1.027 Urine Protein Trace Urine Glucose (UA) Negative Urine Ketones Negative Urine Blood 3+ H Urine Nitrite Negative Urine Bilirubin Negative Urine Urobilinogen 0.2 Ur Leukocyte Esterase 1+ H Urine WBC (Auto) 40 Urine RBC (Auto) 523.5 Urine Casts (Auto) 1 U Epithel Cells (Auto) 10 Urine Crystals (Auto) Uric acid Urine Bacteria (Auto) 441 Ur Random Creatinine Ur Random Sodium COVID-19 ([facility]) 05/28/20 05/29/20 05/29/20 21:56 04:56 05:40 WBC 5.7 RBC 3.93 Hgb 11.5 Hct 34.7 MCV 88.3 MCH 29.3 MCHC 33.2 RDW 12.8 Plt Count 142 MPV 8.9 Absolute Neuts (auto) 3.9 Neutrophils % 68.8 Lymphocytes % 19.1 D Monocytes % 10.5 H Eosinophils % 1.3 D Basophils % 0.3 Nucleated RBC % 0 Sodium Potassium Chloride Carbon Dioxide Anion Gap BUN Creatinine Est GFR (CKD-EPI)AfAm Est GFR (CKD-EPI)NonAf POC Glucometer 117 Random Glucose Hemoglobin A1c % Calcium Phosphorus Magnesium Total Bilirubin AST ALT Alkaline Phosphatase Total Protein Albumin Triglycerides Cholesterol Total LDL Cholesterol HDL Cholesterol Urine Color Urine Appearance Urine pH Ur Specific [place] Urine Protein Urine Glucose (UA) Urine Ketones Urine Blood Urine Nitrite Urine Bilirubin Urine Urobilinogen Ur Leukocyte Esterase Urine WBC (Auto) Urine RBC (Auto) Urine Casts (Auto) U Epithel Cells (Auto) Urine Crystals (Auto) Urine Bacteria (Auto) Ur Random Creatinine Ur Random Sodium COVID-19 ([facility]ON) Not detected 05/29/20 05/29/20 05/29/20 05:40 08:00 12:19 WBC RBC Hgb Hct MCV MCH MCHC RDW Plt Count MPV Absolute Neuts (auto) Neutrophils % Lymphocytes % Monocytes % Eosinophils % Basophils % Nucleated RBC % Sodium 145 Potassium 3.8 Chloride 113 H Carbon Dioxide 22 Anion Gap 10 BUN 20.7 H Creatinine 1.7 H Est GFR (CKD-EPI)AfAm 38.40 Est GFR (CKD-EPI)NonAf 33.13 POC Glucometer 121 108 Random Glucose 117 H Hemoglobin A1c % Calcium 8.8 Phosphorus 3.8 Magnesium 2.1 Total Bilirubin 0.4 AST 16 ALT 23 Alkaline Phosphatase 112 Total Protein 6.6 Albumin 3.4 Triglycerides Cholesterol Total LDL Cholesterol HDL Cholesterol Urine Color Urine Appearance Urine pH Ur Specific [place] Urine Protein Urine Glucose (UA) Urine Ketones Urine Blood Urine Nitrite Urine Bilirubin Urine Urobilinogen Ur Leukocyte Esterase Urine WBC (Auto) Urine RBC (Auto) Urine Casts (Auto) U Epithel Cells (Auto) Urine Crystals (Auto) Urine Bacteria (Auto) Ur Random Creatinine Ur Random Sodium COVID-19 ([facility]ON) 05/29/20 05/29/20 05/29/20 17:01 22:00 22:00 WBC RBC Hgb Hct MCV MCH MCHC RDW Plt Count MPV Absolute Neuts (auto) Neutrophils % Lymphocytes % Monocytes % Eosinophils % Basophils % Nucleated RBC % Sodium Potassium Chloride Carbon Dioxide Anion Gap BUN Creatinine Est GFR (CKD-EPI)AfAm Est GFR (CKD-EPI)NonAf POC Glucometer 126 Random Glucose Hemoglobin A1c % Calcium Phosphorus Magnesium Total Bilirubin AST ALT Alkaline Phosphatase Total Protein Albumin Triglycerides Cholesterol Total LDL Cholesterol HDL Cholesterol Urine Color Urine Appearance Urine pH Ur Specific [place] Urine Protein Urine Glucose (UA) Urine Ketones Urine Blood Urine Nitrite Urine Bilirubin Urine Urobilinogen Ur Leukocyte Esterase Urine WBC (Auto) Urine RBC (Auto) Urine Casts (Auto) U Epithel Cells (Auto) Urine Crystals (Auto) Urine Bacteria (Auto) Ur Random Creatinine 70.0 Ur Random Sodium 130 COVID-19 ([facility]ON) 05/30/20 05/30/20 05/30/20 06:15 07:05 07:05 WBC 5.8 RBC 3.49 L Hgb 10.4 L Hct 30.7 L MCV 88.0 MCH 29.7 MCHC 33.8 RDW 12.2 Plt Count 127 L MPV 8.4 Absolute Neuts (auto) 4.0 Neutrophils % 68.1 Lymphocytes % 17.5 Monocytes % 11.2 H Eosinophils % 3.0 D Basophils % 0.2 Nucleated RBC % 0 Sodium 143 Potassium 3.6 Chloride 110 H Carbon Dioxide 25 Anion Gap 7 L BUN 13.6 Creatinine 1.2 Est GFR (CKD-EPI)AfAm 58.51 Est GFR (CKD-EPI)NonAf 50.48 POC Glucometer 105 Random Glucose 108 H Hemoglobin A1c % Calcium 8.4 L Phosphorus Magnesium 2.0 Total Bilirubin 0.8 AST 18 ALT 23 Alkaline Phosphatase 100 Total Protein 5.5 L Albumin 2.7 L Triglycerides 104 Cholesterol 137 Total LDL Cholesterol 72 HDL Cholesterol 49 Urine Color Urine Appearance Urine pH Ur Specific [place] Urine Protein Urine Glucose (UA) Urine Ketones Urine Blood Urine Nitrite Urine Bilirubin Urine Urobilinogen Ur Leukocyte Esterase Urine WBC (Auto) Urine RBC (Auto) Urine Casts (Auto) U Epithel Cells (Auto) Urine Crystals (Auto) Urine Bacteria (Auto) Ur Random Creatinine Ur Random Sodium COVID-19 ([facility]) 05/30/20 05/30/20 05/30/20 07:05 11:26 16:43 WBC RBC Hgb Hct MCV MCH MCHC RDW Plt Count MPV Absolute Neuts (auto) Neutrophils % Lymphocytes % Monocytes % Eosinophils % Basophils % Nucleated RBC % Sodium Potassium Chloride Carbon Dioxide Anion Gap BUN Creatinine Est GFR (CKD-EPI)AfAm Est GFR (CKD-EPI)NonAf POC Glucometer 121 97 Random Glucose Hemoglobin A1c % 6.7 H Calcium Phosphorus Magnesium Total Bilirubin AST ALT Alkaline Phosphatase Total Protein Albumin Triglycerides Cholesterol Total LDL Cholesterol HDL Cholesterol Urine Color Urine Appearance Urine pH Ur Specific [place] Urine Protein Urine Glucose (UA) Urine Ketones Urine Blood Urine Nitrite Urine Bilirubin Urine Urobilinogen Ur Leukocyte Esterase Urine WBC (Auto) Urine RBC (Auto) Urine Casts (Auto) U Epithel Cells (Auto) Urine Crystals (Auto) Urine Bacteria (Auto) Ur Random Creatinine Ur Random Sodium COVID-19 ([facility]) 05/30/20 05/31/20 05/31/20 20:00 06:12 07:20 WBC 4.0 RBC 3.46 L Hgb 10.1 L Hct 30.3 L MCV 87.5 MCH 29.3 MCHC 33.5 RDW 12.6 Plt Count 134 MPV 8.7 Absolute Neuts (auto) 2.1 Neutrophils % 53.8 D Lymphocytes % 30.0 D Monocytes % 11.2 H Eosinophils % 4.7 H Basophils % 0.3 Nucleated RBC % 0 Sodium Potassium Chloride Carbon Dioxide Anion Gap BUN Creatinine Est GFR (CKD-EPI)AfAm Est GFR (CKD-EPI)NonAf POC Glucometer 111 Random Glucose Hemoglobin A1c % Calcium Phosphorus Magnesium Total Bilirubin AST ALT Alkaline Phosphatase Total Protein Albumin Triglycerides Cholesterol Total LDL Cholesterol HDL Cholesterol Urine Color [place] Urine Appearance Cloudy Urine pH 5.5 Ur Specific [place] 1.026 Urine Protein 2+ H Urine Glucose (UA) Negative Urine Ketones Negative Urine Blood 3+ H Urine Nitrite Negative Urine Bilirubin Negative Urine Urobilinogen 1.0 Ur Leukocyte Esterase 1+ H Urine WBC (Auto) 101 Urine RBC (Auto) 20530 Urine Casts (Auto) 1 U Epithel Cells (Auto) 23 Urine Crystals (Auto) Urine Bacteria (Auto) 8 Ur Random Creatinine Ur Random Sodium COVID-19 ([facility]) 05/31/20 05/31/20 05/31/20 07:20 11:40 17:18 WBC RBC Hgb Hct MCV MCH MCHC RDW Plt Count MPV Absolute Neuts (auto) Neutrophils % Lymphocytes % Monocytes % Eosinophils % Basophils % Nucleated RBC % Sodium 144 Potassium 3.7 Chloride 109 H Carbon Dioxide 26 Anion Gap 10 BUN 16.0 Creatinine 1.2 Est GFR (CKD-EPI)AfAm 58.51 Est GFR (CKD-EPI)NonAf 50.48 POC Glucometer 92 107 Random Glucose 99 Hemoglobin A1c % Calcium 8.4 L Phosphorus Magnesium 2.0 Total Bilirubin 0.3 AST 30 ALT 38 Alkaline Phosphatase 110 Total Protein 5.6 L Albumin 2.8 L Triglycerides Cholesterol Total LDL Cholesterol HDL Cholesterol Urine Color Urine Appearance Urine pH Ur Specific [place] Urine Protein Urine Glucose (UA) Urine Ketones Urine Blood Urine Nitrite Urine Bilirubin Urine Urobilinogen Ur Leukocyte Esterase Urine WBC (Auto) Urine RBC (Auto) Urine Casts (Auto) U Epithel Cells (Auto) Urine Crystals (Auto) Urine Bacteria (Auto) Ur Random Creatinine Ur Random Sodium COVID-19 ([facility]) 06/01/20 06/01/20 06/01/20 06:23 07:25 07:25 WBC 3.6 L RBC 3.62 Hgb 10.8 Hct 31.5 L MCV 87.1 MCH 29.8 MCHC 34.2 RDW 12.7 Plt Count 134 MPV 8.7 Absolute Neuts (auto) 1.7 Neutrophils % 47.7 Lymphocytes % 32.8 Monocytes % 13.3 H Eosinophils % 5.7 H Basophils % 0.5 Nucleated RBC % 0 Sodium 143 Potassium 3.8 Chloride 109 H Carbon Dioxide 30 Anion Gap 4 L BUN 15.4 Creatinine 1.1 Est GFR (CKD-EPI)AfAm 65.00 Est GFR (CKD-EPI)NonAf 56.08 POC Glucometer 92 Random Glucose 92 Hemoglobin A1c % Calcium 8.6 Phosphorus Magnesium Total Bilirubin 0.4 AST 29 ALT 47 Alkaline Phosphatase 124 H Total Protein 6.0 L Albumin 3.0 L Triglycerides Cholesterol Total LDL Cholesterol HDL Cholesterol Urine Color Urine Appearance Urine pH Ur Specific [place] Urine Protein Urine Glucose (UA) Urine Ketones Urine Blood Urine Nitrite Urine Bilirubin Urine Urobilinogen Ur Leukocyte Esterase Urine WBC (Auto) Urine RBC (Auto) Urine Casts (Auto) U Epithel Cells (Auto) Urine Crystals (Auto) Urine Bacteria (Auto) Ur Random Creatinine Ur Random Sodium COVID-19 ([facility]) 06/01/20 11:50 WBC RBC Hgb Hct MCV MCH MCHC RDW Plt Count MPV Absolute Neuts (auto) Neutrophils % Lymphocytes % Monocytes % Eosinophils % Basophils % Nucleated RBC % Sodium Potassium Chloride Carbon Dioxide Anion Gap BUN Creatinine Est GFR (CKD-EPI)AfAm Est GFR (CKD-EPI)NonAf POC Glucometer 108 Random Glucose Hemoglobin A1c % Calcium Phosphorus Magnesium Total Bilirubin AST ALT Alkaline Phosphatase Total Protein Albumin Triglycerides Cholesterol Total LDL Cholesterol HDL Cholesterol Urine Color Urine Appearance Urine pH Ur Specific [place] Urine Protein Urine Glucose (UA) Urine Ketones Urine Blood Urine Nitrite Urine Bilirubin Urine Urobilinogen Ur Leukocyte Esterase Urine WBC (Auto) Urine RBC (Auto) Urine Casts (Auto) U Epithel Cells (Auto) Urine Crystals (Auto) Urine Bacteria (Auto) Ur Random Creatinine Ur Random Sodium COVID-19 ([facility]ON) Home Medications Medication Instructions Recorded Olmesartan Medoxomil [Benicar -] 20 mg PO HS 05/03/13 Atorvastatin Ca [Lipitor] 20 mg PO HS 01/08/15 Cholecalciferol (Vitamin D3) 1,000 unit PO HS 08/20/15 [Vitamin D3] Metformin HCl [Glucophage] 500 mg PO HS 11/23/19 Rizatriptan Benzoate [Rizatriptan] 5 mg PO PRN PRN 11/23/19 ASSESSMENT AND PLAN: 55 F L renal stone s/p L JJ stent Passage of stone fragments MONY improved Obesity HTN HLD T2DM Plan: Cont. aggressive PO hydration, patient endorsed passage of stone fragments overnight Cleared by Urology for DC home with clinic follow up 1 week Avoid nephrotoxins DC home
--- NOTE | 2020-06-14 23:41 | PDOC ---
Documentation entered by Rodney Terry SCRIBE, acting as scribe for Zoe Finnegan MD. Zoe Finnegan MD: This documentation has been prepared by the Harrison rodriguez Xhesika, SCRIBE, under my direction and personally reviewed by me in its entirety. I confirm that the documentation accurately reflects all work, treatment, procedures, and medical decision making performed by me. Attending Attestation - Resident Resident Name: Pj Richmond - ED Attending Attestation I have performed the following: I have examined & evaluated the patient, The case was reviewed & discussed with the resident, I agree w/resident's findings & plan, Exceptions are as noted - HPI HPI: 05/28/20 17:50 The patient is a 55y/o F with significant past medical history of kidney stones, hypertension, hyperlipidemia, sarcoidosis, COPD, and anemia who presents to the ED with Left flank pain since yesterday. Pt reports associated nausea and vomiting. Pt states her symptoms are similar to her previous kidney stones. Pt states she has been taking Tramadol with no relief of symptoms. The patient denies chest pain, shortness of breath, headache and dizziness. Denies fever, chills, cough, diarrhea and constipation. Denies dysuria, freq uency, urgency and hematuria. Allergies: NKDA Past Surgical History: cholecystectomy, lung biopsy, knee arthroscopy , bilat stents on kidneys. PCP: Dr. Delmis Wang Auditing Specialist: Dr. Carlton Brown Nephrology: Dr. Lancaster - Physicial Exam PE: Agree with resident exam - Medical Decision Making 55yo F hx renal colic presents to the ED with L flank pain x1 day a/w N/V Concern for recurring renal colic CTAP with 0.8cm L UPJ obstructing stone Pain poorly controlled Plan for continued pain control, admission for possible surgical intervention Discharge - Discharge Information Problems reviewed: Yes Clinical Impression/Diagnosis: Renal colic on left side, UTI (urinary tract infection), bacterial Condition: Improved Disposition: HOME - Follow up/Referral - Patient Discharge Instructions - Post Discharge Activity
== END 2020-06-01 13:45 | disposition home or self-care (01) | DRG 661 ==
LOC: JER 16:18 → SUPCPDRO 16:18 → JERBED 21:14 → J5S 05-29 13:05
PROVIDERS: ADMIT Internal Medicine
PROC: 0T778DZ Dilation of Left Ureter with Intraluminal Device, Via Natural or Artificial Opening Endoscopic (ICD-10-PCS; principal; 2020-05-29 10:30)
DX: N13.6 Pyonephrosis (principal); I10 Essential (primary) hypertension; E78.5 Hyperlipidemia, unspecified; N17.9 Acute kidney failure, unspecified; E11.9 Type 2 diabetes mellitus without complications; E66.9 Obesity, unspecified; Z68.34 Body mass index [BMI] 34.0-34.9, adult; D86.9 Sarcoidosis, unspecified; J44.9 Chronic obstructive pulmonary disease, unspecified
CPT/HCPCS: 36415; 71045-TC-FY; 74018-TC-FY; 74176-TC; 76000-TC-FY; 80053; 80061; 81003; 82565; 82962; 83036; 83721; 83735; 84100; 84300; 85025; 85027; 87040; 87086; 93005; 93010; 94760; 99284-25; J0131; J1644; U0003

== ENCOUNTER 2021-01-07 12:22 | Emergency (ER) | payer BC ==
[2021-01-07 12:38] VITALS: BMI 34.1
[2021-01-07] MEDS ORDERED: BAMLANIVIMAB 700 MG in SODIUM CHLORIDE 250 ML IVPB ONE (12:52)
[2021-01-07] MEDS ORDERED: ACETAMINOPHEN 500 MG TABLET (FP) PO ONE (12:56)
[2021-01-07 17:12] VITALS: BP 104/67; PULSE 97; TEMP 98.6
== END 2021-01-07 18:37 | disposition home or self-care (01) ==
LOC: JCOVINFU 12:22
DX: U07.1 COVID-19 (principal)
CPT/HCPCS: 99284-25; M0239; Q0239

== ENCOUNTER 2021-01-13 09:32 | Inpatient (IN) | payer BC ==
[2021-01-13] MEDS ORDERED: ACETAMINOPHEN 500 MG TABLET (FP) PO ONE (10:33)
[2021-01-13] MEDS ORDERED: DEXAMETHASONE SOD PHOSPHATE 4 MG/1 ML VIAL IVPUSH ONE (10:33)
[2021-01-13] MEDS ORDERED: ACETAMINOPHEN 325 MG TABLET (FP) ONE (10:34)
[2021-01-13] MEDS ORDERED: DEXAMETHASONE SOD PHOSPHATE 10 MG/1 ML VIAL ONE (10:34)
[2021-01-13 10:43] LABS: VENOUS BASE EXCESS -4.7 mmol/L (-2-2); VENOUS O2 SATURATION 57.3 % (70-80); VENOUS PCO2 34.8 mmHg (38-52); VENOUS PH 7.371 (7.310-7.410)
[2021-01-13 10:46] LABS: BASO % 0.3 % (0-2.0); HEMATOCRIT 41.5 % (32.4-45.2); LYMPH % 5.3 % (8-40); MCH 30.2 pg (25.7-33.7); MCHC 33.8 g/dl (32.0-36.0); MEAN CELL VOLUME 89.4 fl (80-96); MEAN PLT VOLUME 9.4 fl (7.5-11.1); MONO % 9.3 % (3.8-10.2); NEUT % 85.1 % (42.8-82.8); PLATELET COUNT 236 K/MM3 (134-434); RBC 4.65 M/mm3 (3.60-5.2); RDW 12.9 % (11.6-15.6); WHITE BLOOD COUNT 13.6 K/mm3 (4.0-10.0)
[2021-01-13 10:52] LABS: INR 1.21 (0.83-1.09); PROTHROMBIN TIME (PATIENT) 14.6 SEC (9.7-13.0)
[2021-01-13 10:54] LABS: ACTIVATED PTT 29.8 SECONDS (25.2-36.5)
[2021-01-13 11:19] LABS: CHLORIDE 106 mmol/L (98-107); POTASSIUM 4.2 mmol/L (3.5-5.1); SODIUM 136 mmol/L (136-145)
[2021-01-13 11:20] LABS: CALCIUM 9.8 mg/dL (8.5-10.1)
[2021-01-13 11:21] LABS: ALBUMIN 3.8 g/dl (3.4-5.0); ANION GAP 6 MMOL/L (8-16); BLOOD UREA NITROGEN 25.1 mg/dL (7-18); CO2 24 mmol/L (21-32); GLUCOSE,RANDOM 145 mg/dL (74-106)
[2021-01-13 11:23] LABS: BILIRUBIN,DIRECT 0.2 mg/dL (0.0-0.2)
[2021-01-13 11:24] LABS: SGOT/AST 48 U/L (15-37); SGPT/ALT 60 U/L (13-61)
[2021-01-13 11:26] LABS: BILIRUBIN,TOTAL 0.6 mg/dL (0.2-1); CREATININE 1.7 mg/dL (0.55-1.3); TOT PROT 8.4 g/dl (6.4-8.2)
[2021-01-13 11:27] LABS: ALK PHOS 114 U/L (45-117)
[2021-01-13 11:28] LABS: LDH 449 U/L (84-246)
[2021-01-13 13:29] LABS: EPI CELLS >36 /uL (0-25.1); HYALINE CASTS 55 /uL (0-3.1); URINE APPEARANCE CLOUDY; URINE BILIRUBIN 1+ (NEGATIVE); URINE COLOR DK YELLOW; URINE GLUCOSE (UA) NEGATIVE (NEGATIVE); URINE KETONE TRACE (NEGATIVE); URINE LEUK ESTERASE 2+ (NEGATIVE); URINE NITRITE POSITIVE (NEGATIVE); URINE PROTEIN 2+ (NEGATIVE); URINE WBC 693 /uL (0-25.8)
[2021-01-13] MEDS ORDERED: FAMOTIDINE 20 MG TABLET ONE ×2 (15:44→22:28)
[2021-01-13] MEDS ORDERED: ENOXAPARIN NA (PORCINE) 40 MG/0.4 ML DISP.SYRIN SQ ONE (15:45)
[2021-01-13] MEDS: ENOXAPARIN NA (PORCINE) 40 MG/0.4 ML DISP.SYRIN SQ SCH (15:48)
[2021-01-13] MEDS ORDERED: REMDESIVIR 200 MG in SODIUM CHLORIDE 210 ML IVPB ONE (16:17)
[2021-01-13] MEDS ORDERED: INSULIN SLIDING SCALE (NOVOLOG) 1 VIAL SQ SCH (16:30)
[2021-01-13] MEDS: FAMOTIDINE 20 MG TABLET PO SCH ×2 (18:50→22:32)
[2021-01-13] MEDS: ROSUVASTATIN CA 10 MG TABLET (FP) PO SCH (23:58)
[2021-01-14 06:16] LABS: BASO % 0.1 % (0-2.0); HEMATOCRIT 35.9 % (32.4-45.2); HEMOGLOBIN 12.2 GM/dL (10.7-15.3); LYMPH % 8.1 % (8-40); MCH 30.1 pg (25.7-33.7); MEAN CELL VOLUME 88.6 fl (80-96); MEAN PLT VOLUME 8.3 fl (7.5-11.1); MONO % 12.2 % (3.8-10.2); NEUT % 79.6 % (42.8-82.8); PLATELET COUNT 228 K/MM3 (134-434); RBC 4.05 M/mm3 (3.60-5.2); RDW 12.8 % (11.6-15.6)
[2021-01-14 06:39] LABS: CHLORIDE 108 mmol/L (98-107); POTASSIUM 4.2 mmol/L (3.5-5.1); SODIUM 138 mmol/L (136-145)
[2021-01-14 06:43] LABS: ALBUMIN 3.1 g/dl (3.4-5.0)
[2021-01-14 06:44] LABS: ANION GAP 5 MMOL/L (8-16); BLOOD UREA NITROGEN 33.4 mg/dL (7-18); CO2 25 mmol/L (21-32); GLUCOSE,RANDOM 106 mg/dL (74-106)
[2021-01-14 06:46] LABS: SGPT/ALT 43 U/L (13-61)
[2021-01-14 06:47] LABS: CREATININE 1.3 mg/dL (0.55-1.3); SGOT/AST 31 U/L (15-37)
[2021-01-14 06:48] LABS: BILIRUBIN,TOTAL 0.6 mg/dL (0.2-1); LDH 315 U/L (84-246); TOT PROT 7.1 g/dl (6.4-8.2)
[2021-01-14 06:49] LABS: ALK PHOS 92 U/L (45-117)
[2021-01-14] MEDS ORDERED: FAMOTIDINE 20 MG TABLET ONE ×2 (08:33→21:26)
[2021-01-14] MEDS ORDERED: DEXAMETHASONE SOD PHOSPHATE 10 MG/1 ML VIAL ONE (08:33)
[2021-01-14] MEDS ORDERED: ENOXAPARIN NA (PORCINE) 40 MG/0.4 ML DISP.SYRIN SQ ONE (08:33)
[2021-01-14] MEDS ORDERED: CEFTRIAXONE 1 GM/50 ML BAG ONE (08:33)
[2021-01-14] MEDS: CEFTRIAXONE 1 GM in DEXTROSE 5%-WATER - 50 ML IVPB SCH (09:39)
[2021-01-14] MEDS: FAMOTIDINE 20 MG TABLET PO SCH ×2 (09:39→22:43)
[2021-01-14] MEDS: DEXAMETHASONE SOD PHOSPHATE 4 MG/1 ML VIAL IVPUSH SCH (09:39)
[2021-01-14] MEDS: ENOXAPARIN NA (PORCINE) 40 MG/0.4 ML DISP.SYRIN SQ SCH (09:39)
[2021-01-14] MEDS: REMDESIVIR 100 MG in SODIUM CHLORIDE 230 ML IVPB SCH (17:06)
[2021-01-14] MEDS: LACTATED RINGERS SOLUTION 1,000 ML/1,000 ML INFUS.BAG IV SCH (18:07)
[2021-01-14] MEDS: ROSUVASTATIN CA 10 MG TABLET (FP) PO SCH (22:43)
[2021-01-15 02:02] VITALS: BMI 32.1
[2021-01-15] MEDS: ALBUTEROL SO4 HFA INHALER IH PRN ×3 (02:36→21:24)
[2021-01-15] MEDS: LACTATED RINGERS SOLUTION 1,000 ML/1,000 ML INFUS.BAG IV SCH (02:39)
[2021-01-15 08:52] LABS: BASO % 0.2 % (0-2.0); HEMATOCRIT 35.5 % (32.4-45.2); LYMPH % 10.4 % (8-40); MCHC 33.7 g/dl (32.0-36.0); MEAN PLT VOLUME 8.8 fl (7.5-11.1); NEUT % 77.4 % (42.8-82.8); PLATELET COUNT 249 K/MM3 (134-434); RBC 3.98 M/mm3 (3.60-5.2); RDW 12.8 % (11.6-15.6); WHITE BLOOD COUNT 8.9 K/mm3 (4.0-10.0)
[2021-01-15 08:59] LABS: POTASSIUM 4.3 mmol/L (3.5-5.1)
[2021-01-15 09:11] LABS: ALBUMIN 2.9 g/dl (3.4-5.0); BLOOD UREA NITROGEN 32.5 mg/dL (7-18); CALCIUM 8.8 mg/dL (8.5-10.1)
[2021-01-15 09:14] LABS: BILIRUBIN,TOTAL 0.3 mg/dL (0.2-1); CREATININE 1.1 mg/dL (0.55-1.3)
[2021-01-15 09:16] LABS: TOT PROT 6.7 g/dl (6.4-8.2)
[2021-01-15] MEDS ORDERED: DEXTROSE 5%-WATER - 50 ML IVPB ONE (09:35)
[2021-01-15] MEDS ORDERED: cefTRIAXone SODIUM 1 GM VIAL ONE (09:35)
[2021-01-15] MEDS: CEFTRIAXONE 1 GM in DEXTROSE 5%-WATER - 50 ML IVPB SCH (10:12)
[2021-01-15] MEDS: ENOXAPARIN NA (PORCINE) 40 MG/0.4 ML DISP.SYRIN SQ SCH (10:13)
[2021-01-15] MEDS: DEXAMETHASONE SOD PHOSPHATE 4 MG/1 ML VIAL IVPUSH SCH (10:13)
[2021-01-15] MEDS: FAMOTIDINE 20 MG TABLET PO SCH ×2 (10:13→21:23)
[2021-01-15] MEDS: REMDESIVIR 100 MG in SODIUM CHLORIDE 230 ML IVPB SCH (16:38)
[2021-01-15] MEDS: ROSUVASTATIN CA 10 MG TABLET (FP) PO SCH (21:22)
[2021-01-15 23:39] LABS: EPI CELLS >36 /uL (0-25.1); HYALINE CASTS 2 /uL (0-3.1); URINE APPEARANCE CLEAR; URINE BACTERIA 48 /uL (0-1359); URINE BILIRUBIN NEGATIVE (NEGATIVE); URINE COLOR YELLOW; URINE GLUCOSE (UA) 1+ (NEGATIVE); URINE KETONE NEGATIVE (NEGATIVE); URINE LEUK ESTERASE 1+ (NEGATIVE); URINE NITRITE NEGATIVE (NEGATIVE); URINE PROTEIN 1+ (NEGATIVE); URINE RBC 10 /uL (0-23.9); URINE UROBILINOGEN 0.2 mg/dL (0.2-1.0); URINE WBC 67 /uL (0-25.8)
[2021-01-16] MEDS: ALBUTEROL SO4 HFA INHALER IH PRN ×2 (05:56→21:31)
[2021-01-16] MEDS: INSULIN SLIDING SCALE (NOVOLOG) 1 VIAL SQ SCH ×4 (06:50→21:31)
[2021-01-16 09:15] LABS: BASO % 0.2 % (0-2.0); EOS % 0.1 % (0-4.5); HEMATOCRIT 34.9 % (32.4-45.2); HEMOGLOBIN 11.9 GM/dL (10.7-15.3); MCH 30.4 pg (25.7-33.7); MEAN CELL VOLUME 89.5 fl (80-96); MEAN PLT VOLUME 8.3 fl (7.5-11.1); MONO % 7.2 % (3.8-10.2); NEUT % 80.5 % (42.8-82.8); PLATELET COUNT 243 K/MM3 (134-434); RDW 12.7 % (11.6-15.6); WHITE BLOOD COUNT 8.3 K/mm3 (4.0-10.0)
[2021-01-16 09:30] LABS: POTASSIUM 3.6 mmol/L (3.5-5.1)
[2021-01-16 10:02] LABS: ALBUMIN 2.9 g/dl (3.4-5.0); BLOOD UREA NITROGEN 26.6 mg/dL (7-18)
[2021-01-16] MEDS ORDERED: cefTRIAXone SODIUM 1 GM VIAL ONE (10:02)
[2021-01-16] MEDS ORDERED: DEXTROSE 5%-WATER - 50 ML IVPB ONE (10:02)
[2021-01-16 10:05] LABS: CREATININE 1.1 mg/dL (0.55-1.3)
[2021-01-16 10:06] LABS: TOT PROT 6.4 g/dl (6.4-8.2)
[2021-01-16 10:07] LABS: BILIRUBIN,TOTAL 0.3 mg/dL (0.2-1)
[2021-01-16] MEDS: ENOXAPARIN NA (PORCINE) 40 MG/0.4 ML DISP.SYRIN SQ SCH (10:07)
[2021-01-16] MEDS: CEFTRIAXONE 1 GM in DEXTROSE 5%-WATER - 50 ML IVPB SCH (10:07)
[2021-01-16] MEDS: DEXAMETHASONE SOD PHOSPHATE 4 MG/1 ML VIAL IVPUSH SCH (10:08)
[2021-01-16] MEDS: FAMOTIDINE 20 MG TABLET PO SCH ×2 (10:08→21:28)
[2021-01-16 12:15] LABS: ANISOCYTOSIS 0; MACROCYTOSIS 0; PLATELET ESTIMATE NORMAL
[2021-01-16] MEDS: REMDESIVIR 100 MG in SODIUM CHLORIDE 230 ML IVPB SCH (16:54)
[2021-01-16] MEDS: ROSUVASTATIN CA 10 MG TABLET (FP) PO SCH (21:28)
[2021-01-17] MEDS: INSULIN SLIDING SCALE (NOVOLOG) 1 VIAL SQ SCH ×4 (06:00→21:30)
[2021-01-17] MEDS: GLIMEPIRIDE 2 MG TABLET PO SCH (06:33)
[2021-01-17 08:37] LABS: EOS % 0.2 % (0-4.5); HEMATOCRIT 33.5 % (32.4-45.2); HEMOGLOBIN 11.4 GM/dL (10.7-15.3); LYMPH % 14.6 % (8-40); MCH 30.2 pg (25.7-33.7); MCHC 33.9 g/dl (32.0-36.0); MEAN CELL VOLUME 89.1 fl (80-96); MEAN PLT VOLUME 8.2 fl (7.5-11.1); MONO % 7.2 % (3.8-10.2); PLATELET COUNT 214 K/MM3 (134-434); RBC 3.76 M/mm3 (3.60-5.2); RDW 12.7 % (11.6-15.6); WHITE BLOOD COUNT 8.4 K/mm3 (4.0-10.0)
[2021-01-17 08:50] LABS: POTASSIUM 3.7 mmol/L (3.5-5.1)
[2021-01-17 09:04] LABS: BLOOD UREA NITROGEN 26.9 mg/dL (7-18); CALCIUM 8.6 mg/dL (8.5-10.1)
[2021-01-17 09:05] LABS: ALBUMIN 2.7 g/dl (3.4-5.0)
[2021-01-17 09:06] LABS: BILIRUBIN,TOTAL 0.2 mg/dL (0.2-1)
[2021-01-17 09:10] LABS: TOT PROT 5.9 g/dl (6.4-8.2)
[2021-01-17] MEDS ORDERED: cefTRIAXone SODIUM 1 GM VIAL ONE (09:59)
[2021-01-17] MEDS ORDERED: DEXTROSE 5%-WATER - 50 ML IVPB ONE (09:59)
[2021-01-17] MEDS: CEFTRIAXONE 1 GM in DEXTROSE 5%-WATER - 50 ML IVPB SCH (10:00)
[2021-01-17] MEDS: FAMOTIDINE 20 MG TABLET PO SCH ×2 (10:01→21:26)
[2021-01-17] MEDS: ENOXAPARIN NA (PORCINE) 40 MG/0.4 ML DISP.SYRIN SQ SCH (10:01)
[2021-01-17] MEDS: DEXAMETHASONE SOD PHOSPHATE 4 MG/1 ML VIAL IVPUSH SCH (10:01)
[2021-01-17] MEDS: ALBUTEROL SO4 HFA INHALER IH PRN ×2 (10:02→22:07)
[2021-01-17 11:12] LABS: ANISOCYTOSIS 0; MACROCYTOSIS 0; PLATELET ESTIMATE NORMAL
[2021-01-17] MEDS ORDERED: PT OWN MED DRAWER 7, Y5N ONE (16:39)
[2021-01-17] MEDS: REMDESIVIR 100 MG in SODIUM CHLORIDE 230 ML IVPB SCH (16:40)
[2021-01-17] MEDS: ROSUVASTATIN CA 10 MG TABLET (FP) PO SCH (21:27)
[2021-01-18] MEDS ORDERED: PT OWN MED DRAWER 7, Y5N ONE (05:31)
[2021-01-18] MEDS: GLIMEPIRIDE 2 MG TABLET PO SCH (06:33)
[2021-01-18] MEDS: INSULIN SLIDING SCALE (NOVOLOG) 1 VIAL SQ SCH ×3 (06:33→17:41)
[2021-01-18] MEDS ORDERED: cefTRIAXone SODIUM 1 GM VIAL ONE (09:25)
[2021-01-18] MEDS ORDERED: DEXTROSE 5%-WATER - 50 ML IVPB ONE (09:25)
[2021-01-18] MEDS: DEXAMETHASONE SOD PHOSPHATE 4 MG/1 ML VIAL IVPUSH SCH (10:22)
[2021-01-18] MEDS: ENOXAPARIN NA (PORCINE) 40 MG/0.4 ML DISP.SYRIN SQ SCH (10:22)
[2021-01-18] MEDS: FAMOTIDINE 20 MG TABLET PO SCH (10:22)
[2021-01-18] MEDS: CEFTRIAXONE 1 GM in DEXTROSE 5%-WATER - 50 ML IVPB SCH (10:23)
[2021-01-18 14:35] VITALS: BP 123/64; TEMP 98.5
[2021-01-18 15:04] VITALS: PULSE 102
== END 2021-01-18 18:34 | disposition home or self-care (01) | DRG 178 ==
LOC: JER 09:32 → JERBED 14:24 → J6S 01-15 01:39
PROVIDERS: ADMIT Internal Medicine; ATTEND Internal Medicine
PROC: XW033E5 Introduction of Remdesivir Anti-infective into Peripheral Vein, Percutaneous Approach, New Technology Group 5 (ICD-10-PCS; principal; 2021-01-13)
DX: U07.1 COVID-19 (principal); N17.9 Acute kidney failure, unspecified; I10 Essential (primary) hypertension; E78.5 Hyperlipidemia, unspecified; J44.9 Chronic obstructive pulmonary disease, unspecified; D64.9 Anemia, unspecified; D86.0 Sarcoidosis of lung; Z79.84 Long term (current) use of oral hypoglycemic drugs
CPT/HCPCS: 36415; 71045-TC-FY; 74176-TC; 80048; 80053; 81003; 82248; 82550; 82553; 82728; 82803; 82962; 83036; 83605; 83615; 84436; 84479; 84484; 85025; 85027; 85379; 85610; 85730; 86140; 87040; 87086; 87804; 93005; 93010; 94010; 94761; 99285-25; C9399; C9803; U0003

== ENCOUNTER 2022-04-28 11:24 | Emergency (ER) | payer BC ==
[2022-04-28 12:44] VITALS: BP 126/71; PULSE 78; TEMP 98.2; BMI 35.7
[2022-04-28] MEDS ORDERED: BEBTELOVIMAB (EUA) 175 MG/2 ML VIAL IVPUSH ONE (13:44)
== END 2022-04-28 16:27 | disposition home or self-care (01) ==
LOC: JER 11:24
PROC: 3E033GC Introduction of Other Therapeutic Substance into Peripheral Vein, Percutaneous Approach (ICD-10-PCS; principal; 2022-04-28)
DX: U07.1 COVID-19 (principal)
CPT/HCPCS: 71046-TC-FY; 99284-25; Q0222

== ENCOUNTER 2023-03-07 07:19 | Emergency (ER) | payer BC ==
[2023-03-07 07:36] VITALS: RESP 18; TEMP 98.4; BMI 38.2
[2023-03-07] MEDS ORDERED: valACYclovir HCL 1000 MG TABLET PO ONE (09:23)
[2023-03-07] MEDS ORDERED: ACETAMINOPHEN 500 MG TABLET (FP) PO ONE (09:24)
[2023-03-07] MEDS ORDERED: valACYclovir HCL 500 MG TABLET (FP) ONE (09:30)
[2023-03-07] MEDS ORDERED: ACETAMINOPHEN 500 MG TABLET (FP) ONE (09:31)
[2023-03-07 09:41] VITALS: BP 140/90; PULSE 90
== END 2023-03-07 09:45 | disposition home or self-care (01) ==
LOC: JER 07:19
DX: B02.21 Postherpetic geniculate ganglionitis (principal); B02.9 Zoster without complications; R21 Rash and other nonspecific skin eruption; R51.9 Headache, unspecified
CPT/HCPCS: 99283-25

== ENCOUNTER 2023-12-03 04:17 | Day surgery (SDC) | payer BC ==
[2023-11-26 14:41] VITALS: BMI 40.6
[2023-12-03 08:46] VITALS: RESP 18; TEMP 97
[2023-12-03 09:41] VITALS: BP 106/52; PULSE 67
== END 2023-12-03 09:41 | disposition home or self-care (01) ==
LOC: JASU-ENDO 04:17
PROVIDERS: ATTEND Internal Medicine Gastroenterology
PROC: 0DJD8ZZ Inspection of Lower Intestinal Tract, Via Natural or Artificial Opening Endoscopic (ICD-10-PCS; principal; 2023-12-03 08:30)
DX: Z12.11 Encounter for screening for malignant neoplasm of colon (principal); K57.30 Diverticulosis of large intestine without perforation or abscess without bleeding; Z86.010 Personal history of colon polyps
CPT/HCPCS: 82962

== ENCOUNTER 2024-05-06 11:09 | Inpatient (IN) | payer BC ==
[2024-05-06 12:52] LABS: BASO % 0.4 % (0-2.0); EOS % 3.7 % (0-4.5); HEMATOCRIT 36.8 % (32.4-45.2); HEMOGLOBIN 12.6 GM/dL (10.7-15.3); LYMPH % 21.3 % (8-40); MCH 28.9 pg (25.7-33.7); MCHC 34.2 g/dl (32.0-36.0); MEAN CELL VOLUME 84.5 fl (80-96); MEAN PLT VOLUME 8.4 fl (7.5-11.1); MONO % 12.2 % (3.8-10.2); NEUT % 62.4 % (42.8-82.8); PLATELET COUNT 129 10^3/uL (134-434); RBC 4.35 M/mm3 (3.60-5.2)
[2024-05-06 13:12] LABS: CALCIUM 9.4 mg/dL (8.5-10.1)
[2024-05-06 13:13] LABS: BLOOD UREA NITROGEN 23.9 mg/dL (7-18)
[2024-05-06 13:16] LABS: CREATININE 1.3 mg/dL (0.55-1.3)
[2024-05-06] MEDS ORDERED: ACETAMINOPHEN INJECTION 100 ML IVPB ONE (13:53)
[2024-05-06] MEDS: ACETAMINOPHEN 1000 MG/100 ML BAG IVPB ONE (13:55)
[2024-05-06] MEDS: VANCOMYCIN PREMIX 1.5 GM 1,500 MG/300 ML BAG IVPB ONE (15:55)
[2024-05-06] MEDS ORDERED: ENOXAPARIN NA (PORCINE) 40 MG/0.4 ML DISP.SYRIN SQ ONE (16:29)
[2024-05-06] MEDS: ENOXAPARIN NA (PORCINE) 40 MG/0.4 ML DISP.SYRIN SQ SCH (16:31)
[2024-05-06] MEDS ORDERED: AMPICILLIN NA/SULBACTAM NA 3 GM/100 ML BAG IVPB ONE (17:30)
[2024-05-06] MEDS ORDERED: IBUPROFEN 400 MG TABLET (FP) PO PRN (17:54)
[2024-05-06] MEDS ORDERED: morphine SULFATE 4 MG/ML VIAL ONE (18:23)
[2024-05-06] MEDS: morphine SULFATE 4 MG/ML VIAL IVPUSH ONE ×2 (18:29→18:30)
[2024-05-06] MEDS: AMPICILLIN NA/SULBACTAM NA 3 GM in SODIUM CHLORIDE 100 ML IVPB SCH (18:30)
[2024-05-06] MEDS: VANCOMYCIN HCL 1,500 MG in DEXTROSE 5%-WATER - 500 ML IVPB ONE (19:13)
[2024-05-07 03:10] VITALS: BMI 41.1
[2024-05-07] MEDS: ACETAMINOPHEN 1000 MG/100 ML BAG IVPB ONE (05:45)
[2024-05-07] MEDS: PRAMIPEXOLE DIHYDROCHLORIDE 0.5 MG TABLET PO ONE (06:26)
[2024-05-07 09:02] LABS: CALCIUM 8.9 mg/dL (8.5-10.1)
[2024-05-07 09:03] LABS: ALBUMIN 3.3 g/dl (3.4-5.0); BLOOD UREA NITROGEN 22.3 mg/dL (7-18)
[2024-05-07 09:04] LABS: BASO % 0.6 % (0-2.0); EOS % 6.4 % (0-4.5); HEMOGLOBIN 11.8 GM/dL (10.7-15.3); LYMPH % 24.8 % (8-40); MCH 28.6 pg (25.7-33.7); MCHC 33.7 g/dl (32.0-36.0); MEAN CELL VOLUME 84.9 fl (80-96); MEAN PLT VOLUME 9.2 fl (7.5-11.1); MONO % 13.6 % (3.8-10.2); NEUT % 54.6 % (42.8-82.8); PLATELET COUNT 119 10^3/uL (134-434); RBC 4.13 M/mm3 (3.60-5.2); RDW 13.8 % (11.6-15.6); WHITE BLOOD COUNT 2.8 K/mm3 (4.0-10.0)
[2024-05-07 09:06] LABS: CREATININE 1.3 mg/dL (0.55-1.3)
[2024-05-07 09:08] LABS: BILIRUBIN,TOTAL 0.5 mg/dL (0.2-1); TOT PROT 6.6 g/dl (6.4-8.2)
[2024-05-07] MEDS ORDERED: PATIENT'S OWN MEDICATION (NON-FORMULARY) (Olmesartan Medoxomil [Benicar] 5 MG Tablet) PO SCH (12:15)
[2024-05-07] MEDS: PREGABALIN 75 MG CAPSULE PO SCH (13:31)
[2024-05-07] MEDS: PRAMIPEXOLE DIHYDROCHLORIDE 0.25 MG TABLET PO SCH (13:31)
[2024-05-07] MEDS: FUROSEMIDE 40 MG/4 ML INJECTABLE VIAL IVPUSH ONE (13:31)
[2024-05-07] MEDS: NEBIVOLOL 5 MG TABLET (FP) PO SCH (18:26)
[2024-05-07] MEDS: ROSUVASTATIN CA 20 MG TABLET PO SCH (21:29)
[2024-05-08 09:20] LABS: BASO % 0.7 % (0-2.0); EOS % 8.6 % (0-4.5); HEMATOCRIT 37.3 % (32.4-45.2); HEMOGLOBIN 12.6 GM/dL (10.7-15.3); LYMPH % 30.7 % (8-40); MCH 28.7 pg (25.7-33.7); MCHC 33.8 g/dl (32.0-36.0); MEAN CELL VOLUME 84.9 fl (80-96); MEAN PLT VOLUME 9.1 fl (7.5-11.1); MONO % 14.8 % (3.8-10.2); NEUT % 45.2 % (42.8-82.8); PLATELET COUNT 140 10^3/uL (134-434); RBC 4.39 M/mm3 (3.60-5.2); WHITE BLOOD COUNT 3.2 K/mm3 (4.0-10.0)
[2024-05-08 09:40] LABS: POTASSIUM 3.9 mmol/L (3.5-5.1)
[2024-05-08 09:47] LABS: BLOOD UREA NITROGEN 26.2 mg/dL (7-18); CALCIUM 9.5 mg/dL (8.5-10.1)
[2024-05-08 09:51] LABS: CREATININE 1.4 mg/dL (0.55-1.3)
[2024-05-08 15:12] VITALS: BP 111/59; PULSE 100; RESP 20; TEMP 98.6
== END 2024-05-08 15:04 | disposition home or self-care (01) | DRG 603 ==
LOC: JER 11:09 → JERBED 13:42 → J8W 05-07 01:03
PROVIDERS: ADMIT Internal Medicine; ATTEND Internal Medicine
DX: L03.115 Cellulitis of right lower limb (principal); E11.9 Type 2 diabetes mellitus without complications; I10 Essential (primary) hypertension; E78.5 Hyperlipidemia, unspecified; D86.9 Sarcoidosis, unspecified; D86.0 Sarcoidosis of lung
CPT/HCPCS: 36415; 73562-TC-RT-FY; 73590-TC-RT-FY; 80048; 80053; 82962; 85025; 87081; 93005; 93010; 93971-TC; 99285-25; J0131

== ENCOUNTER 2025-01-20 17:16 | Observation (INO) | payer BC ==
[2025-01-20] MEDS ORDERED: ASPIRIN 81 MG CHEWABLE TABLETS ONE ×2 (17:47→22:08)
[2025-01-20] MEDS: ASPIRIN 81 MG CHEWABLE TABLETS PO ONE ×2 (17:58→22:15)
[2025-01-20] MEDS: SODIUM CHLORIDE 0.9% 500 ML INFUS.BAG IV ONE (17:58)
[2025-01-20] MEDS ORDERED: ADENOSINE 6 MG/2 ML VIAL IVPUSH ONE ×2 (18:14→18:26)
[2025-01-20 18:23] LABS: ABSOLUTE IMMATURE GRANULOCYTES 0.01 x10^3/uL (0.0-0.031); BASOPHILS # 0.02 x10^3/uL (0.01-0.08); EOSINOPHIL % 3.9 % (0.7-5.8); EOSINOPHILS # 0.17 x10^3/uL (0.04-0.36); HEMATOCRIT 42.9 % (34.1-44.9); HEMOGLOBIN 13.8 g/dL (11.2-15.7); MCHC 32.2 g/dl (32.2-35.5); MEAN CELL VOLUME 88.1 fl (79.4-94.8); MEAN PLT VOLUME 11.4 fl (9.4-12.3); MONOCYTE # 0.74 x10^3/uL (0.24-0.86); MONOCYTE % 16.8 % (4.7-12.5); PLATELET COUNT # 139 x10^3/uL (182-369); RDW 12.8 % (12.3-16.6)
[2025-01-20 18:27] LABS: POTASSIUM 4.5 mmol/L (3.5-5.1)
[2025-01-20 18:29] LABS: ALBUMIN 3.7 g/dl (3.4-5.0); BLOOD UREA NITROGEN 28.2 mg/dL (7-18); CALCIUM 9.5 mg/dL (8.5-10.1)
[2025-01-20 18:33] LABS: CREATININE 1.6 mg/dL (0.55-1.3)
[2025-01-20 18:34] LABS: BILIRUBIN,TOTAL 0.3 mg/dL (0.2-1); TOT PROT 7.6 g/dl (6.4-8.2)
[2025-01-20] MEDS: ADENOSINE 6 MG/2 ML VIAL IVPUSH ONE ×2 (18:35)
[2025-01-20] MEDS: dilTIAZem HCL 50 MG/10 ML - 10 ML VIAL IVPUSH ONE (18:39)
[2025-01-20 19:09] LABS: INR 0.96 (0.83-1.09); PROTHROMBIN TIME (PATIENT) 10.5 SEC (9.7-13.0)
[2025-01-20 19:12] LABS: ACTIVATED PTT 31.8 SECONDS (25.2-36.5)
[2025-01-20] MEDS ORDERED: LOSARTAN POTASSIUM 25 MG TABLET ONE (22:08)
[2025-01-20] MEDS ORDERED: PANTOPRAZOLE 20 MG TABLET PO ONE (22:08)
[2025-01-20] MEDS: PANTOPRAZOLE 20 MG TABLET PO ONE (22:15)
[2025-01-20] MEDS: PRAMIPEXOLE DIHYDROCHLORIDE 0.25 MG TABLET PO SCH (22:15)
[2025-01-20] MEDS: LOSARTAN POTASSIUM 25 MG TABLET PO ONE (22:15)
[2025-01-20 23:35] VITALS: BMI 40.0
[2025-01-21] MEDS: NEBIVOLOL 5 MG TABLET (FP) PO SCH (09:34)
[2025-01-21] MEDS: ASPIRIN COATED 81 MG TABLET.EC PO SCH (09:34)
[2025-01-21] MEDS: TIOTROPIUM BROMIDE 2.5 MCG (SPIRIVA) RESPIMAT INHALER IH SCH (10:54)
[2025-01-21 18:30] VITALS: BP 118/68; PULSE 80; RESP 18; TEMP 98.4
[2025-01-21] MEDS ORDERED: PRAMIPEXOLE DIHYDROCHLORIDE 1.5 MG TABLET PO SCH (22:00)
[2025-01-21] MEDS ORDERED: ROSUVASTATIN CA 20 MG TABLET PO SCH (22:00)
[2025-01-21] MEDS ORDERED: PREGABALIN 75 MG CAPSULE PO SCH (22:00)
[2025-01-21] MEDS ORDERED: ASPIRIN COATED 81 MG TABLET.EC PO SCH (22:00)
[2025-01-22] MEDS ORDERED: PREGABALIN 75 MG CAPSULE PO SCH (06:00)
[2025-01-22] MEDS ORDERED: PRAMIPEXOLE DIHYDROCHLORIDE 0.25 MG TABLET PO SCH (07:00)
== END 2025-01-21 18:30 | disposition home or self-care (01) ==
LOC: JER 17:16 → JERBED 21:21 → J4W 23:03
PROVIDERS: ADMIT Hospitalist; ATTEND Internal Medicine
PROC: 3E033GC Introduction of Other Therapeutic Substance into Peripheral Vein, Percutaneous Approach (ICD-10-PCS; principal; 2025-01-20)
PROC: 3E0337Z Introduction of Electrolytic and Water Balance Substance into Peripheral Vein, Percutaneous Approach (ICD-10-PCS; 2025-01-20)
DX: I47.10 Supraventricular tachycardia, unspecified (principal); D86.0 Sarcoidosis of lung; E11.9 Type 2 diabetes mellitus without complications; I10 Essential (primary) hypertension; E78.5 Hyperlipidemia, unspecified; I45.10 Unspecified right bundle-branch block
CPT/HCPCS: 36415; 71045-TC-FY; 71046-TC-FY; 80053; 84443; 84484; 85025; 85610; 85730; 93005; 93010; 99285-25; G0378